=== PATIENT | female | born 1945 ===

== ENCOUNTER 2017-01-10 10:10 | Observation (INO) | payer MEDICARE, MEDICAID ==
[2017-01-10 10:18] VITALS: BMI 40.9
[2017-01-10] MEDS ORDERED: Sodium Chloride 0.9% 1,000 ML IV STA (10:50)
--- NOTE | 2017-01-10 10:51 | ED PDOC ---
HPI: General Adult Time Seen by Provider: 01/10/17 10:41 Chief Complaint (Nursing): Dizziness/Lightheaded Chief Complaint (Provider): Dizziness History Per: Patient History/Exam Limitations: no limitations Additional History Per: Patient Additional Complaint(s): Pt. with dizziness, chest pain off and on, dyspnea off and on for 1 week. Head pressure, mild, not worst in her life. No numbness, tingles, weakness, abd pain. No nausea, vomit. NIHSS Stroke Scale - Date/Time Evaluation Performed Date Performed: 01/10/17 Time Performed: 10:30 When Was NIHSS Performed: Baseline - How Severe is the Stroke Level of Consciousness: 0=Alert LOC to Questions: 0=Both comments correct LOC to commands: 0=Obeys both correctly Best Gaze: 0=Normal Visual: 0=No visual loss Facial: 0=Normal Motor Arm - Left: 0=No drift Motor Arm - Right: 0=No drift Motor Leg - Left: 0=No drift Motor Leg - Right: 0=No drift Limb Ataxia: 0=Absent Sensory: 0=Normal Best Language: 0=No aphasia Dysarthia: 0=Normal articulation Extinction & Inattention (Neglect): 0=Normal, no object Score: 0 rTPA Inclusion/Exclusion - Refusal of Treatment Patient Refused Treatment: No - Inclusion Criteria for Altepase Patient is 18 years or Older: Yes The Clinical Diagnosis of Ischemic Stroke That is Causing a Potentially Disabling Neurological Deficit: Yes Time of Onset is Well Established to be Less Than 270 Minute Before Treatment Would Begin: No Risk/Benefit Discussed With Patient/Family Member Present: No Past Medical History Reviewed: Nursing Documentation, Vital Signs Vital Signs: Last Vital Signs Temp 98.2 F 01/10/17 10:23 Pulse 62 01/10/17 10:23 Resp 20 01/10/17 10:23 BP 128/56 L 01/10/17 10:23 Pulse Ox 100 01/10/17 10:23 - Medical History PMH: Anxiety, Arthritis, Asthma, Cardia Arrhythmia, Depression, HTN, Hypercholesterolemia, Rheumatoid Arthritis Denies: Chronic Kidney Disease - Surgical History Surgical History: Denies: CABG - Family History Family History: States: Unknown Family Hx - Home Medications Home Medications: Ambulatory Orders Medication Instructions Recorded Rosuvastatin Calcium [Crestor] 5 mg PO HS 10/12/14 Alprazolam [Xanax] 2 mg PO TID PRN 12/21/14 Sertraline [Zoloft] 100 mg PO DAILY 12/21/14 Sitagliptin Phos/Metformin HCl 1 tab PO DAILY 12/21/14 [Janumet Xr 100-1,000 mg Tablet] Digoxin [Digitek] 125 mcg PO DAILY 11/29/15 Enalapril Maleate [Vasotec] 2.5 mg PO DAILY 11/29/15 Fexofenadine HCl [NayaNf] 180 mg PO DAILY PRN 11/29/15 Pioglitazone [Actos] 15 mg PO DAILY 11/29/15 oxyCODONE [oxyCODONE Immediate 30 mg PO Q6 PRN 11/29/15 Release Tab] Acetaminophen [Tylenol Extra 1,000 mg PO Q8H PRN 01/11/16 Strength] Albuterol 0.083% [Albuterol 0.083% 3 ml IH Q4H PRN 01/11/16 Inhal Anastasia (2.5 mg/3 ml) UD] Gabapentin [Neurontin] 800 mg PO Q8H 01/11/16 Montelukast [Singulair] 10 mg PO HS 01/11/16 PrednisoLONE 1% [Pred Forte 1% 1 drop LEFTEYE DAILY 01/11/16 Opht Susp] traZODone [Desyrel] 100 mg PO HS 01/11/16 Propranolol [Inderal] 20 mg PO BID 08/07/16 - Allergies Allergies/Adverse Reactions: Allergies Allergy/AdvReac Type Severity Reaction Status Date / Time penicillin G procaine Allergy RASH Verified 01/10/17 10:25 Penicillins Allergy RASH Verified 01/10/17 10:25 Sulfa (Sulfonamide Allergy RASH Verified 01/10/17 10:25 Antibiotics) Review of Systems ROS Statement: Except As Marked, All Systems Reviewed And Found Negative Cardiovascular: Positive for: Chest Pain Physical Exam - Reviewed Nursing Documentation Reviewed: Yes Vital Signs Reviewed: Yes - Physical Exam Appears: Positive for: Well, Non-toxic, No Acute Distress Head Exam: Positive for: ATRAUMATIC, NORMAL INSPECTION, NORMOCEPHALIC Skin: Positive for: Normal Color, Warm, DRY Eye Exam: Positive for: EOMI, Normal appearance, PERRL ENT: Positive for: Normal ENT Inspection Neck: Positive for: Normal, Painless ROM Cardiovascular/Chest: Positive for: Regular Rate, Rhythm. Negative for: Edema Respiratory: Positive for: CNT, Normal Breath Sounds Gastrointestinal/Abdominal: Positive for: Normal Exam, Bowel Sounds, Soft. Negative for: Tenderness Back: Positive for: Normal Inspection. Negative for: L CVA Tenderness, R CVA Tenderness Extremity: Positive for: Normal ROM. Negative for: Tenderness, Pedal Edema Neurologic/Psych: Positive for: Alert, cigar bander II-XII, Oriented - Laboratory Results Interpretation Of Abn Labs: no acute - ECG ECG: Positive for: Interpreted By Me, Viewed By Me ECG Rhythm: Positive for: Normal QRS, Normal ST Segment, Sinus Rhythm (pacs) O2 Sat by Pulse Oximetry: 100 Pulse Ox Interpretation: Normal - Radiology X-Ray: Read By Radiologist X-Ray Interpretation: No Acute Disease - CT Scan/US ct Other Rad Studies (CT/US): Read By Radiologist Other Rad Interpretation: no acute - Progress ED Course And Treament: 1245: Stable. Spoke with Dr. Peraza. Will admit tele obs. Pain free. Disposition - Clinical Impression Clinical Impression: Dizziness, Chest pain - Patient ED Disposition Is Patient to be Admitted: Yes Counseled Patient/Family Regarding: Studies Performed, Diagnosis - Disposition Disposition Time: 12:45 Condition: STABLE - Pt Status Changed To: Hospital Disposition Of: Observation - POA Present On Arrival: None Core Measure Indicators: Chest Pain
[2017-01-10 11:07] LABS: BASO % 0.6 % (0.0-2.0); EOS # 0.1 K/uL (0.0-0.7); EOS % 2.4 % (0.0-4.0); LYMPH % 20.6 % (20.0-40.0); MEAN CELL VOLUME 83.3 fl (81.0-99.0); MEAN CORPUSCULAR HGB CONC 32.5 g/dL (33.0-37.0); MEAN PLATELET VOLUME 8.7 fl (7.2-11.7); MONO # 0.5 K/uL (0.0-0.8); MONO % 10.2 % (0.0-10.0); NEUT # 3.2 K/uL (1.8-7.0); NEUT % 66.2 % (50.0-75.0); NRBC % 0.1 % (0.0-0.0); RED CELL DISTRIBUTION WIDTH 14.3 % (11.5-14.5); WHITE BLOOD COUNT 4.9 K/uL (4.8-10.8)
[2017-01-10 11:17] LABS: ALB/GLOB RATIO 1.1 (1.0-2.1); ALKALINE PHOSPHATASE 88 U/L (38-126); ALT/SGPT 23 U/L (9-52); AST/SGOT 18 U/L (14-36); BILIRUBIN,TOTAL 0.5 mg/dl (0.2-1.3); BLOOD UREA NITROGEN 12 mg/dl (7-17); CALCIUM 9.1 mg/dL (8.4-10.2); CARBON DIOXIDE 29 mmol/L (22-30); CHLORIDE 103 mmol/L (98-107); GFR AFRICAN-AMERICAN > 60; GLUCOSE,RANDOM 179 mg/dL (65-105); POTASSIUM 4.4 MMOL/L (3.6-5.0); SODIUM 140 mmol/l (132-148); TOTAL PROTEIN 6.7 G/DL (6.3-8.2)
--- NOTE | 2017-01-10 11:24 | CT ---
PROCEDURE: CT scan of the brain dated 01/10/2017. HISTORY: headache COMPARISON: CT scan brain dated in 10/12/2010 TECHNIQUE: Axial computed tomography images were obtained through the head/brain without intravenous contrast. Radiation dose: Total exam DLP = mGy-cm. This CT exam was performed using one or more of the following dose reduction techniques: Automated exposure control, adjustment of the mA and/or kV according to patient size, and/or use of iterative reconstruction technique. FINDINGS: HEMORRHAGE: No acute parenchymal, subarachnoid or extra-axial hemorrhage. BRAIN: There appears to be some minimal chronic periventricular white matter ischemic changes. No obvious parenchymal nor extra-axial masses or collections. . Mild vascular calcifications are present. Ventricular and sulcal size within range of normal for this patient's VENTRICLES: Unremarkable. No age obstructive type hydrocephalus. Hydrocephalus. CALVARIUM: Unremarkable. PARANASAL SINUSES: Mild mucosal thickening noted within the left maxillary antrum. Minor mucosal thickening within several ethmoid air cells. Small left-sided andre bullosa again noted. MASTOID AIR CELLS: Unremarkable as visualized. No inflammatory changes. OTHER FINDINGS: Status post bilateral cataract surgery. IMPRESSION: No acute intracranial hemorrhage. Suspect minimal chronic periventricular white matter ischemic changes. See above discussion for additional findings and details.
[2017-01-10 11:27] LABS: PARTIAL THROMBOPLASTIN TIME 27.2 SECONDS (23.3-32.5)
--- NOTE | 2017-01-10 11:29 | RAD ---
HISTORY: chest pain COMPARISON: 03/01/16 FINDINGS: LUNGS: No active pulmonary disease. PLEURA: No significant pleural effusion identified, no pneumothorax apparent. CARDIOVASCULAR: Normal. OSSEOUS STRUCTURES: Mild multilevel degenerative spondylosis of the thoracic spine VISUALIZED UPPER ABDOMEN: Normal. OTHER FINDINGS: None. IMPRESSION: No active disease.
--- NOTE | 2017-01-10 13:04 | CP.PCM.HP ---
History of Present Illness - History of Present Illness History of Present Illness: CC: chest pain/pressure HPI: 71F PMH SVT, CVA 15 years ago?, hypertension, diabetes mellitus, aortic aneurysm, L sided weakness upper and lower extremities due to back pain presents with a one day history of a single episode of mild to moderate chest pressure/pins and needles, while sitting at home, nonradiating. Patient also complains of associated shortness of breath today. Otherwise she has no other complaints at this time. Vitals are stable, no acute distress. EKG NSR, regular rate. No acute ischemia or infarct. Troponin negative times 1. Currently no active chest pain. ROS: per HPI all other systems negative PMH: SVT, CVA 15 years ago?, hypertension, diabetes mellitus, 2.6 cm infrarenal abd aortic aneurysm, L sided weakness upper and lower extremities due to back pain/ sciatica pain PSH: foot, lap band (inserted 5 years ago, removed this year), jaw surgery dislocation FH: CAD? uncertain SH: denies ETOH, tobacco, IVDU, quit 15 years ago. Meds: per reconciliation Allergies: PCN, Sulfa PMD: Dr. Almanza, Dr. Nevarez [facility] Registered Nurse EXAM GEN: WDWN, ALERT, ORIENTED HEENT: NCAT PERRL EOMI HEART: +S1S2 RRR LUNG: CTAB, NO WRR ABD SOFT NT ND NO MASS NO ORGANOMEGALY EXT WARM WELL PERFUSED BACK ALIGNED, NO RASH NEURO AAOX3, STRENGTH MILD WEAKER ON L SIDE FOR 30 YEARS SKIN WARM DRY PSYCH NORMAL MOOD NORMAL AFFECT 01/10/17 10:55 01/10/17 10:55 Most Recent Lab Values WBC 4.9 K/uL (4.8-10.8) 01/10/17 10:55 RBC 4.20 Mil/uL (3.80-5.20) 01/10/17 10:55 Hgb 11.4 g/dL (12.0-16.0) L 01/10/17 10:55 Hct 35.0 % (34.0-47.0) 01/10/17 10:55 MCV 83.3 fl (81.0-99.0) 01/10/17 10:55 MCH 27.0 pg (27.0-31.0) 01/10/17 10:55 MCHC 32.5 g/dL (33.0-37.0) L 01/10/17 10:55 RDW 14.3 % (11.5-14.5) 01/10/17 10:55 Plt Count 261 K/uL (130-400) 01/10/17 10:55 MPV 8.7 fl (7.2-11.7) 01/10/17 10:55 Neut % (Auto) 66.2 % (50.0-75.0) 01/10/17 10:55 Lymph % (Auto) 20.6 % (20.0-40.0) 01/10/17 10:55 [place] % (Auto) 10.2 % (0.0-10.0) H 01/10/17 10:55 Eos % (Auto) 2.4 % (0.0-4.0) 01/10/17 10:55 Baso % (Auto) 0.6 % (0.0-2.0) 01/10/17 10:55 Neut # 3.2 K/uL (1.8-7.0) 01/10/17 10:55 Lymph # 1.0 K/uL (1.0-4.3) 01/10/17 10:55 [place] # 0.5 K/uL (0.0-0.8) 01/10/17 10:55 Eos # 0.1 K/uL (0.0-0.7) 01/10/17 10:55 Baso # 0.0 K/uL (0.0-0.2) 01/10/17 10:55 PT 10.0 SECONDS (9.6-11.2) 01/10/17 10:55 INR 0.96 (0.92-1.08) 01/10/17 10:55 APTT 27.2 SECONDS (23.3-32.5) 01/10/17 10:55 Sodium 140 mmol/l (132-148) 01/10/17 10:55 Potassium 4.4 MMOL/L (3.6-5.0) 01/10/17 10:55 Chloride 103 mmol/L (98-107) 01/10/17 10:55 Carbon Dioxide 29 mmol/L (22-30) 01/10/17 10:55 Anion Gap 12 (10-20) 01/10/17 10:55 BUN 12 mg/dl (7-17) 01/10/17 10:55 Creatinine 0.7 mg/dL (0.7-1.2) 01/10/17 10:55 Est GFR ( Amer) > 60 01/10/17 10:55 Est GFR (Non-Af Amer) > 60 01/10/17 10:55 Random Glucose 179 mg/dL (65-105) H 01/10/17 10:55 Calcium 9.1 mg/dL (8.4-10.2) 01/10/17 10:55 Total Bilirubin 0.5 mg/dl (0.2-1.3) 01/10/17 10:55 AST 18 U/L (14-36) 01/10/17 10:55 ALT 23 U/L (9-52) 01/10/17 10:55 Alkaline Phosphatase 88 U/L (38-126) 01/10/17 10:55 Troponin I < 0.0120 ng/mL (0.00-0.120) 01/10/17 10:55 NT-Pro-B Natriuret Pep 222 pg/ml (0-900) 01/10/17 10:55 Total Protein 6.7 G/DL (6.3-8.2) 01/10/17 10:55 Albumin 3.6 g/dL (3.5-5.0) 01/10/17 10:55 Globulin 3.2 gm/dL (2.2-3.9) 01/10/17 10:55 Albumin/Globulin Ratio 1.1 (1.0-2.1) 01/10/17 10:55 Digoxin 0.6 ng/mL (0.8-2.0) L 01/10/17 10:55 EKG: NSR, RR, NO ACUTE ISCHEMIA OR INFARCT CXR: NO ACTIVE DISEASE CT HEAD: NO ACUTE INTRACRANIAL PATHOLOGY Active Medications 01/10/17 13:41 Albuterol 0.083% [Albuterol 0.083% Inhal Anastasia (2.5 mg/3 ml) UD] 2.5 mg IH Q4H PRN oxyCODONE [oxyCODONE Immediate Release Tab] 30 mg PO Q6 PRN 01/10/17 13:45 Gabapentin [Neurontin] 800 mg PO Q8H 01/10/17 16:30 Insulin Lispro [humALOG] See Protocol SC ACHS 01/10/17 21:00 Metoprolol Tartrate [Lopressor] 12.5 mg PO Q12 01/10/17 22:00 Atorvastatin [Lipitor] 20 mg PO HS Montelukast [Singulair] 10 mg PO HS traZODone [Desyrel] 100 mg PO HS 01/11/17 09:00 Aspirin [Aspirin Chewable] 81 mg PO DAILY Clopidogrel [Plavix] 75 mg PO DAILY Digoxin [Lanoxin] 0.125 mg PO DAILY Enalapril Maleate [Vasotec] 2.5 mg PO DAILY Enoxaparin [Lovenox] 40 mg SC DAILY Pioglitazone [Actos] 15 mg PO DAILY Sertraline [Zoloft] 100 mg PO DAILY Sitagliptin Phos/Metformin HCl [Janumet Xr 100-1,000 mg Tablet] 1 tab PO DAILY ASSESSMENT AND PLAN 71F PMH SVT, CVA 15 years ago?, hypertension, diabetes mellitus, aortic aneurysm , L sided weakness upper and lower extremities due to back pain presents with a one day history of mild to moderate chest pressure while at rest, lasting a few minutes, nonradiating. Patient also complains of associated shortness of breath. Otherwise she has no other complaints at this time. Vitals are stable, no acute distress. EKG NSR, regular rate. No acute ischemia or infarct. Troponin negative times 1. Currently no active chest pain. Chest Pain Hypertension Hyperlipidemia Trend cardiac enzymes. Obs on telemetry overnight. Spoke with patient's forcer maker, discussed patient case, and she may follow up with him as an outpatient once enzymes trend out. Metoprolol Tartrate [Lopressor] 12.5 mg PO Q12 Atorvastatin [Lipitor] 20 mg PO HS Aspirin [Aspirin Chewable] 81 mg PO DAILY Clopidogrel [Plavix] 75 mg PO DAILY Enalapril Maleate [Vasotec] 2.5 mg PO DAILY Enoxaparin [Lovenox] 40 mg SC DAILY Hx SVT stable Digoxin [Lanoxin] 0.125 mg PO DAILY Dig level slightly low Infrarenal Abd Aortic Aneurysm Pt on propranolol at home Currently on Lopressor for chest pain observation stable Diabetes Mellitus Gabapentin [Neurontin] 800 mg PO Q8H Insulin Lispro [humALOG] See Protocol SC ACHS Sitagliptin Phos/Metformin HCl [Janumet Xr 100-1,000 mg Tablet] 1 tab PO DAILY Pioglitazone [Actos] 15 mg PO DAILY Asthma stable Albuterol 0.083% [Albuterol 0.083% Inhal Anastasia (2.5 mg/3 ml) UD] 2.5 mg IH Q4H PRN Montelukast [Singulair] 10 mg PO HS Sciatica / Back pain stable Sees Dr. Woods pain management as outpatient oxyCODONE [oxyCODONE Immediate Release Tab] 30 mg PO Q6 PRN Anxiety/Depression stable Sertraline [Zoloft] 100 mg PO DAILY traZODone [Desyrel] 100 mg PO HS VTE PPX lovenox Present on Admission - Present on Admission Any Indicators Present on Admission: No Past Patient History - Infectious Disease Hx of Infectious Diseases: None - Tetanus Immunizations Tetanus Immunization: Unknown - Past Medical History & Family History Past Medical History?: Yes - Past Social History Smoking Status: Never Smoked - CARDIAC Hx Cardia Arrhythmia: Yes Hx Hypercholesterolemia: Yes Hx Hypertension: Yes - PULMONARY Hx Asthma: Yes - NEUROLOGICAL Hx Neurological Disorder: No - HEENT Hx HEENT Problems: Yes Hx Cataracts: Yes (BILATERAL) - RENAL Hx Chronic Kidney Disease: No - ENDOCRINE/METABOLIC Hx Endocrine Disorders: Yes Hx Diabetes Mellitus Type 2: Yes Other/Comment: NEUROPATHY - HEMATOLOGICAL/ONCOLOGICAL Hx Blood Disorders: No Hx Blood Transfusions: No - INTEGUMENTARY Hx Dermatological Problems: No - MUSCULOSKELETAL/RHEUMATOLOGICAL Hx Arthritis: Yes Hx Rheumatoid Arthritis: Yes - GASTROINTESTINAL Hx Gastrointestinal Disorders: No - GENITOURINARY/GYNECOLOGICAL Hx Genitourinary Disorders: No - PSYCHIATRIC Hx Anxiety: Yes Hx Depression: Yes - SURGICAL HISTORY Hx Coronary Artery Bypass Graft: No - ANESTHESIA Hx Anesthesia: Yes Hx Anesthesia Reactions: No Hx Malignant Hyperthermia: No Meds Allergies/Adverse Reactions: Allergies Allergy/AdvReac Type Severity Reaction Status Date / Time penicillin G procaine Allergy RASH Verified 01/10/17 10:25 Penicillins Allergy RASH Verified 01/10/17 10:25 Sulfa (Sulfonamide Allergy RASH Verified 01/10/17 10:25 Antibiotics) Results - Vital Signs Recent Vital Signs: Last Vital Signs Temp 98.2 F 01/10/17 10:23 Pulse 61 01/10/17 11:24 Resp 16 01/10/17 11:24 BP 120/61 01/10/17 11:24 Pulse Ox 100 05/05/17 12:46 - Labs Result Diagrams: 01/10/17 10:55 01/10/17 10:55 Labs: Laboratory Results - last 24 hr 01/10/17 01/10/17 01/10/17 10:55 10:55 10:55 WBC 4.9 RBC 4.20 Hgb 11.4 L Hct 35.0 MCV 83.3 MCH 27.0 MCHC 32.5 L RDW 14.3 Plt Count 261 MPV 8.7 Neut % (Auto) 66.2 Lymph % (Auto) 20.6 [place] % (Auto) 10.2 H Eos % (Auto) 2.4 Baso % (Auto) 0.6 Neut # 3.2 Lymph # 1.0 [place] # 0.5 Eos # 0.1 Baso # 0.0 PT 10.0 INR 0.96 APTT 27.2 Sodium 140 Potassium 4.4 Chloride 103 Carbon Dioxide 29 Anion Gap 12 BUN 12 Creatinine 0.7 Est GFR ( Amer) > 60 Est GFR (Non-Af Amer) > 60 Random Glucose 179 H Calcium 9.1 Total Bilirubin 0.5 AST 18 ALT 23 Alkaline Phosphatase 88 Troponin I < 0.0120 NT-Pro-B Natriuret Pep 222 Total Protein 6.7 Albumin 3.6 Globulin 3.2 Albumin/Globulin Ratio 1.1 Digoxin 01/10/17 10:55 WBC RBC Hgb Hct MCV MCH MCHC RDW Plt Count MPV Neut % (Auto) Lymph % (Auto) [place] % (Auto) Eos % (Auto) Baso % (Auto) Neut # Lymph # [place] # Eos # Baso # PT INR APTT Sodium Potassium Chloride Carbon Dioxide Anion Gap BUN Creatinine Est GFR ( Amer) Est GFR (Non-Af Amer) Random Glucose Calcium Total Bilirubin AST ALT Alkaline Phosphatase Troponin I NT-Pro-B Natriuret Pep Total Protein Albumin Globulin Albumin/Globulin Ratio Digoxin 0.6 L
[2017-01-10] MEDS ORDERED: oxyCODONE 10 mg Immediate Release Tab PO PRN (13:41)
[2017-01-10] MEDS ORDERED: Albuterol 0.083% Inhal Sol (2.5 mg/3 mL) UD IH PRN (13:41)
[2017-01-10] MEDS ORDERED: Pneumococcal 23-Valent Vaccine IM ONE (15:50)
[2017-01-10] MEDS: Insulin Lispro (humaLOG) 100 Units/ml Inj SC SCH ×2 (18:08→21:35)
[2017-01-10] MEDS: oxyCODONE 5 mg Immediate Release Tab PO PRN (21:32)
[2017-01-11] MEDS: oxyCODONE 5 mg Immediate Release Tab PO PRN ×2 (05:32→10:39)
[2017-01-11 05:43] VITALS: RESP 18; TEMP 97.5
[2017-01-11] MEDS: Insulin Lispro (humaLOG) 100 Units/ml Inj SC SCH (06:37)
[2017-01-11 08:01] LABS: BASO % 0.5 % (0.0-2.0); EOS # 0.1 K/uL (0.0-0.7); EOS % 2.9 % (0.0-4.0); HEMATOCRIT 32.8 % (34.0-47.0); LYMPH # 1.5 K/uL (1.0-4.3); LYMPH % 28.6 % (20.0-40.0); MEAN CELL VOLUME 83.7 fl (81.0-99.0); MEAN CORPUSCULAR HEMOGLOBIN 27.8 pg (27.0-31.0); MEAN CORPUSCULAR HGB CONC 33.2 g/dL (33.0-37.0); MEAN PLATELET VOLUME 9.5 fl (7.2-11.7); MONO # 0.5 K/uL (0.0-0.8); MONO % 10.2 % (0.0-10.0); NEUT # 2.9 K/uL (1.8-7.0); NEUT % 57.8 % (50.0-75.0); NRBC % 0.1 % (0.0-0.0); RED CELL DISTRIBUTION WIDTH 14.1 % (11.5-14.5); WHITE BLOOD COUNT 5.1 K/uL (4.8-10.8)
[2017-01-11 08:05] VITALS: BP 104/67; PULSE 56; O2SAT 92
[2017-01-11 08:21] LABS: BLOOD UREA NITROGEN 13 mg/dl (7-17); CALCIUM 8.8 mg/dL (8.4-10.2); CARBON DIOXIDE 29 mmol/L (22-30); CHLORIDE 103 mmol/L (98-107); CHOLESTEROL 215 mg/dL (0-199); GFR AFRICAN-AMERICAN > 60; GLUCOSE,RANDOM 157 mg/dL (65-105); POTASSIUM 4.2 MMOL/L (3.6-5.0); SODIUM 139 mmol/l (132-148)
--- NOTE | 2017-01-11 08:58 | CP.PCM.DIS ---
Provider - Provider Date of Admission: 01/10/17 12:46 Attending physician: Margaret Peraza DO Time Spent in preparation of Discharge (in minutes): 30 Hospital Course - Lab Results Lab Results: Most Recent Lab Values WBC 4.9 K/uL (4.8-10.8) 01/10/17 10:55 RBC 4.20 Mil/uL (3.80-5.20) 01/10/17 10:55 Hgb 11.4 g/dL (12.0-16.0) L 01/10/17 10:55 Hct 35.0 % (34.0-47.0) 01/10/17 10:55 MCV 83.3 fl (81.0-99.0) 01/10/17 10:55 MCH 27.0 pg (27.0-31.0) 01/10/17 10:55 MCHC 32.5 g/dL (33.0-37.0) L 01/10/17 10:55 RDW 14.3 % (11.5-14.5) 01/10/17 10:55 Plt Count 261 K/uL (130-400) 01/10/17 10:55 MPV 8.7 fl (7.2-11.7) 01/10/17 10:55 Neut % (Auto) 66.2 % (50.0-75.0) 01/10/17 10:55 Lymph % (Auto) 20.6 % (20.0-40.0) 01/10/17 10:55 [place] % (Auto) 10.2 % (0.0-10.0) H 01/10/17 10:55 Eos % (Auto) 2.4 % (0.0-4.0) 01/10/17 10:55 Baso % (Auto) 0.6 % (0.0-2.0) 01/10/17 10:55 Neut # 3.2 K/uL (1.8-7.0) 01/10/17 10:55 Lymph # 1.0 K/uL (1.0-4.3) 01/10/17 10:55 [place] # 0.5 K/uL (0.0-0.8) 01/10/17 10:55 Eos # 0.1 K/uL (0.0-0.7) 01/10/17 10:55 Baso # 0.0 K/uL (0.0-0.2) 01/10/17 10:55 PT 10.0 SECONDS (9.6-11.2) 01/10/17 10:55 INR 0.96 (0.92-1.08) 01/10/17 10:55 APTT 27.2 SECONDS (23.3-32.5) 01/10/17 10:55 Sodium 139 mmol/l (132-148) 01/11/17 06:00 Potassium 4.2 MMOL/L (3.6-5.0) 01/11/17 06:00 Chloride 103 mmol/L (98-107) 01/11/17 06:00 Carbon Dioxide 29 mmol/L (22-30) 01/11/17 06:00 Anion Gap 12 (10-20) 01/11/17 06:00 BUN 13 mg/dl (7-17) 01/11/17 06:00 Creatinine 0.8 mg/dL (0.7-1.2) 01/11/17 06:00 Est GFR ( Amer) > 60 01/11/17 06:00 Est GFR (Non-Af Amer) > 60 01/11/17 06:00 POC Glucose (mg/dL) 139 mg/dL (65-110) H 01/11/17 05:33 Random Glucose 157 mg/dL (65-105) H 01/11/17 06:00 Calcium 8.8 mg/dL (8.4-10.2) 01/11/17 06:00 Total Bilirubin 0.5 mg/dl (0.2-1.3) 01/10/17 10:55 AST 18 U/L (14-36) 01/10/17 10:55 ALT 23 U/L (9-52) 01/10/17 10:55 Alkaline Phosphatase 88 U/L (38-126) 01/10/17 10:55 Troponin I < 0.0120 ng/mL (0.00-0.120) 01/11/17 06:00 NT-Pro-B Natriuret Pep 222 pg/ml (0-900) 01/10/17 10:55 Total Protein 6.7 G/DL (6.3-8.2) 01/10/17 10:55 Albumin 3.6 g/dL (3.5-5.0) 01/10/17 10:55 Globulin 3.2 gm/dL (2.2-3.9) 01/10/17 10:55 Albumin/Globulin Ratio 1.1 (1.0-2.1) 01/10/17 10:55 Triglycerides 189 mg/DL (0-149) H 01/11/17 06:00 Cholesterol 215 mg/dL (0-199) H 01/11/17 06:00 LDL Cholesterol Direct 138 mg/dL (0-129) H 01/11/17 06:00 HDL Cholesterol 40 MG/DL (30-70) 01/11/17 06:00 Digoxin 0.6 ng/mL (0.8-2.0) L 01/10/17 10:55 - Hospital Course Hospital Course: 71F PMH SVT, CVA 15 years ago?, hypertension, diabetes mellitus, Infrarenal Abd Aortic Aneurysm, L sided weakness upper and lower extremities due to back pain presents with a one day history of a single episode of mild to moderate chest pressure/pins and needles, while sitting at home, nonradiating. Patient also complains of associated shortness of breath today. Otherwise she has no other complaints at this time. Vitals are stable, no acute distress. EKG NSR, regular rate. No acute ischemia or infarct. Troponin negative times 1. Currently no active chest pain. ROS: per HPI all other systems negative PMH: SVT, CVA 15 years ago?, hypertension, diabetes mellitus, 2.6 cm infrarenal abd aortic aneurysm, L sided weakness upper and lower extremities due to back pain/ sciatica pain PSH: foot, lap band (inserted 5 years ago, removed this year), jaw surgery dislocation FH: CAD? uncertain SH: denies ETOH, tobacco, IVDU, quit 15 years ago. Meds: per reconciliation Allergies: PCN, Sulfa PMD: Dr. Almanza, Dr. Nevarez Plastic Cutter EKG: NSR, RR, NO ACUTE ISCHEMIA OR INFARCT CXR: NO ACTIVE DISEASE CT HEAD: NO ACUTE INTRACRANIAL PATHOLOGY COURSE IN HOSPITAL Chest Pain Hypertension Hyperlipidemia Trend cardiac enzymes - NEGATIVE TIMES THREE. Obs on telemetry overnight. No acute tele events. Spoke with patient's roll on man, discussed patient case, and she may follow up with him as an outpatient once enzymes trend out. Metoprolol Tartrate [Lopressor] 12.5 mg PO Q12 Atorvastatin [Lipitor] 20 mg PO HS Aspirin [Aspirin Chewable] 81 mg PO DAILY Clopidogrel [Plavix] 75 mg PO DAILY Enalapril Maleate [Vasotec] 2.5 mg PO DAILY Enoxaparin [Lovenox] 40 mg SC DAILY Hx SVT stable Digoxin [Lanoxin] 0.125 mg PO DAILY Dig level slightly low Infrarenal Abd Aortic Aneurysm Pt on propranolol at home Currently on Lopressor for chest pain observation stable Diabetes Mellitus Gabapentin [Neurontin] 800 mg PO Q8H Insulin Lispro [humALOG] See Protocol SC ACHS Sitagliptin Phos/Metformin HCl [Janumet Xr 100-1,000 mg Tablet] 1 tab PO DAILY Pioglitazone [Actos] 15 mg PO DAILY Asthma stable Albuterol 0.083% [Albuterol 0.083% Inhal Anastasia (2.5 mg/3 ml) UD] 2.5 mg IH Q4H PRN Montelukast [Singulair] 10 mg PO HS Sciatica / Back pain stable Sees Dr. Woods pain management as outpatient oxyCODONE [oxyCODONE Immediate Release Tab] 30 mg PO Q6 PRN Anxiety/Depression stable Sertraline [Zoloft] 100 mg PO DAILY traZODone [Desyrel] 100 mg PO HS VTE PPX lovenox Discharge Exam - Head Exam Head Exam: ATRAUMATIC, NORMAL INSPECTION, NORMOCEPHALIC - Eye Exam Eye Exam: EOMI, Normal appearance, PERRL Pupil Exam: NORMAL ACCOMODATION - ENT Exam ENT Exam: Mucous Membranes Moist, Normal Oropharynx - Neck Exam Neck exam: Full Rom, Normal Inspection - Respiratory Exam Respiratory Exam: Clear to PA & Lateral, NORMAL BREATHING PATTERN. absent: Decreased Breath Sounds, Rales, Rhonchi - Cardiovascular Exam Cardiovascular Exam: RRR, +S1, +S2. absent: Gallop, Rubs - GI/Abdominal Exam GI & Abdominal Exam: Normal Bowel Sounds, Soft. absent: Mass, Organomegaly, Tenderness - Back Exam Back exam: absent: CVA tenderness (L), CVA tenderness (R) - Neurological Exam Neurological exam: Alert, Oriented x3 - Psychiatric Exam Psychiatric exam: Normal Affect, Normal Mood - Skin Skin Exam: Dry, Warm Discharge Plan - Discharge Medications Prescriptions: Albuterol 0.083% [Albuterol 0.083% Inhal Anastasia (2.5 mg/3 ml) UD] 3 ml IH Q4H PRN # 1 PRN Reason: Shortness Of Breath Aspirin [Aspirin Chewable] 81 mg PO DAILY #30 Digoxin [Digitek] 125 mcg PO DAILY #30 Enalapril Maleate [Vasotec] 2.5 mg PO DAILY #30 Gabapentin [Neurontin] 800 mg PO Q8H #90 Montelukast [Singulair] 10 mg PO HS #30 oxyCODONE [oxyCODONE Immediate Release Tab] 30 mg PO Q6 PRN #28 PRN Reason: Pain, Severe (8-10) Pioglitazone [Actos] 15 mg PO DAILY #30 Propranolol [Inderal] 20 mg PO BID #60 Rosuvastatin Calcium [Crestor] 5 mg PO DAILY #30 tab Sertraline [Zoloft] 100 mg PO DAILY #30 Sitagliptin Phos/Metformin HCl [Janumet Xr 100-1,000 mg Tablet] 1 tab PO DAILY # 30 traZODone [Desyrel] 100 mg PO HS #30 - Follow Up Plan Condition: STABLE Disposition: HOME/ ROUTINE Additional Instructions: FOLLOW UP WITH PRIMARY CARE DOCTOR, DR. ALMANZA IN ONE WEEK. FOLLOW UP WITH DR. NEVAREZ [facility] IN ONE WEEK. RESUME LOW FAT LOW CHOLESTEROL DIET RESUME ACTIVITY TOLERATED, ENCOURAGE EXERCISE. MEDICATIONS PRESCRIBED. RETURN TO ER IF CONDITION WORSENS.
[2017-01-11] MEDS ORDERED: Patient's Own Med (Sitagliptin Phos/Metformin Hcl [Janumet Xr 100-1,000 Mg Tablet] 1 TAB) PO SCH (09:00)
[2017-01-11] MEDS ORDERED: Enoxaparin 40 mg Syringe SC SCH (09:00)
[2017-01-11] MEDS ORDERED: Digoxin 125 mcg (0.125 mg) Tab PO SCH (09:00)
--- NOTE | 2017-01-11 09:19 | CARD ---
APPROVED REPORT EKG Measurement Heart [id number] <Conclusion> Sinus rhythm with premature atrial complexes Otherwise normal ECG
[2017-01-11 09:30] VITALS: PULSE 56
== END 2017-01-11 11:03 | disposition home or self-care (01) ==
LOC: H.ER 10:10 → H.ERHOLD 12:46 → H.TEL 14:19
PROVIDERS: ADMIT Student in an Organized Health Care Education/Training Program; ATTEND Student in an Organized Health Care Education/Training Program
DX: R07.9 Chest pain, unspecified (principal); E11.9 Type 2 diabetes mellitus without complications; E78.00 Pure hypercholesterolemia, unspecified; E78.5 Hyperlipidemia, unspecified; F32.9 Major depressive disorder, single episode, unspecified; F41.9 Anxiety disorder, unspecified; I10 Essential (primary) hypertension; I71.4 Abdominal aortic aneurysm, without rupture; J45.909 Unspecified asthma, uncomplicated; M06.9 Rheumatoid arthritis, unspecified; M54.30 Sciatica, unspecified side; Z86.73 Personal history of transient ischemic attack (TIA), and cerebral infarction without residual deficits; M54.9 Dorsalgia, unspecified; R53.1 Weakness; Z23 Encounter for immunization; Z88.0 Allergy status to penicillin; Z88.2 Allergy status to sulfonamides
CPT/HCPCS: 36415; 70450; 71010; 80048; 80053; 80061; 80162; 82948; 83880; 84484; 85025; 85610; 85730; 90732; 93005; 99285; G0009; G0378; J1650; J7040

== ENCOUNTER 2017-04-23 10:09 | Day surgery (SDC) | payer MEDICARE, MEDICAID ==
[2017-04-23 10:38] VITALS: BMI 41.8
[2017-04-23] MEDS ORDERED: Lactated Ringer's 1,000 ML IV ONE (11:18)
[2017-04-23] MEDS ORDERED: Iohexol 300 10 ML ONE (11:36)
[2017-04-23] MEDS ORDERED: methylPREDNISolone Depo 80 mg/ml Inj ONE (11:36)
[2017-04-23] MEDS ORDERED: Bupivacaine HCl 0.25% PF (10 ml) Inj ONE (11:37)
[2017-04-23] MEDS ORDERED: Lidocaine 1% Inj (20ml) ONE (11:37)
[2017-04-23] MEDS ORDERED: Propofol 10 mg/ml Inj (20 ML) ONE (11:56)
[2017-04-23] MEDS ORDERED: Midazolam 2 MG/2 ML VIAL ONE (11:56)
[2017-04-23] MEDS ORDERED: Bupivacaine HCl 0.25% PF (10 ml) Inj IJ ONE (12:00)
[2017-04-23] MEDS ORDERED: Lidocaine 1% Inj (20ml) IJ ONE (12:00)
[2017-04-23] MEDS ORDERED: Iohexol 300 10 ML IJ ONE (12:02)
[2017-04-23] MEDS ORDERED: methylPREDNISolone Depo 80 mg/ml Inj IM ONE (12:02)
[2017-04-23 12:58] VITALS: BP 116/57; PULSE 58; RESP 18; O2SAT 98
[2017-04-23 13:20] VITALS: TEMP 98.4
--- NOTE | 2017-04-23 15:16 | OP ---
PROCEDURE DATE: 04/23/2017 PREOPERATIVE DIAGNOSIS: Lumbar rachiopathy. POSTOPERATIVE DIAGNOSIS: Lumbar rachiopathy. PROCEDURE: Caudal epidural steroid injection. ANESTHESIOLOGIST: Dr. Valero. SURGEON: Dr. Woods. ANESTHESIA: Monitored anesthesia care. COMPLICATIONS: None. SPECIMEN: None. DESCRIPTION OF PROCEDURE: As follows, after discussion of the procedure with the patient including his risks, benefits, alternative, outcome data, possibility of no effects, increased pain the patient consented to the procedure. She denies any recent infection, bleeding tendencies or being on anticoagulants. Decision was then made to proceed to the OR. The patient was placed on a fluoroscopy table in a supine position with two pillows underneath her abdomen. The back was prepped and draped in a usual sterile fashion under sterile technique and was adhered during the entire procedure. The sacral hiatus was first palpated. The skin approximately 5 cm distal to this area was then infiltrated with 1% lidocaine using 25-gauge needle box maker then under a lot of fluoroscopic guidance a 20-gauge 3.5 inch 2 needle was then inserted towards the sacral hiatal opening. After the needle was safely reached the epidural space this was confirmed by injecting approximately 1 mL of Isovue contrast which was spread up to the L5 intravertebral region. Approximately 10 mL of 0.5% Marcaine and Depo-Medrol mixture was injected. At the end of procedure, the patient's back was cleaned and dried and bandages were applied. The patient was then transferred to recovery area in good condition without any signs of SCALE SHOOTER toxicity or any neurological defects. She will have a followup in our office in approximately 2 to 4 weeks. En-Elie Woods MD
--- NOTE | 2017-04-23 17:22 | RAD ---
PROCEDURE: Sacral epidural HISTORY: PAIN MANAGEMENT COMPARISON: None TECHNIQUE: Standard protocol for this study/examination. FINDINGS: Total fluoroscopic time (continuous mode) utilized during the procedure: 11.5 seconds. Submitted images from the current procedure: 1.0 IMPRESSION: Less than 1 hr fluoroscopic time utilized during performance of the procedure.
== END 2017-04-23 13:21 | disposition home or self-care (01) ==
LOC: H.OPSURG 10:09
PROVIDERS: ATTEND Anesthesiology
DX: M54.16 Radiculopathy, lumbar region (principal); J45.909 Unspecified asthma, uncomplicated; E11.9 Type 2 diabetes mellitus without complications; E78.5 Hyperlipidemia, unspecified; I10 Essential (primary) hypertension; I47.1 Supraventricular tachycardia; I69.354 Hemiplegia and hemiparesis following cerebral infarction affecting left non-dominant side
CPT/HCPCS: 62322; 82948; J1040; J2001; J2250; J2704; J3010; J7120; Q9967

== ENCOUNTER → 2017-06-18 | Day surgery (SDC) | payer MEDICARE, MEDICAID ==
[~2017-06-18] MED LIST: Bupivacaine HCl 0.25% PF (10 ml) Inj IJ ONE; Bupivacaine HCl 0.25% PF (10 ml) Inj ONE; Iohexol 300 10 ML IJ ONE; Iohexol 300 10 ML ONE; Lactated Ringer's 1,000 ML IV ONE; Lidocaine 1% Inj (20ml) IJ ONE; Lidocaine 1% Inj (20ml) ONE; MethylPREDNISolone Depo 40 mg/ml Inj ONE; Propofol 10 mg/ml Inj (20 ML) ONE; methylPREDNISolone Depo 80 mg/ml Inj IM ONE
[2017-06-18 10:38] VITALS: BMI 40.9
[2017-06-18] MEDS: HYDROmorphone 0.5 mg/0.5 ml ISec IVP PRN ×2 (12:20→12:35)
[2017-06-18 13:26] VITALS: BP 151/84; PULSE 54; RESP 18; TEMP 97.5
--- NOTE | 2017-06-18 22:09 | OP ---
PROCEDURE DATE: 06/18/2017 PREOPERATIVE DIAGNOSIS: Lumbar radiculopathy. POSTOPERATIVE DIAGNOSIS: Lumbar radiculopathy. PROCEDURE: Left L4-L5, L5-S1 transforaminal epidural steroid injection. SURGEON: Dipti Woods MD TYPE OF ANESTHESIA: Monitored anesthesia care. ANESTHESIA ADMINISTERED BY: Dr. Rodriguez. COMPLICATIONS: None. SPECIMEN: None. DESCRIPTION OF PROCEDURE: After we had a discussion of the procedure with the patient including its risks, benefits, alternative, outcome data, and possibility of no effect or increased pain, the patient consented to the procedure. She denies any recent infections, bleeding tendencies or being on anticoagulants, decision was then made to proceed to the OR. The patient was placed on a fluoroscopy table in a prone position with 2 pillows underneath her abdomen. The back was prepped and draped in the usual sterile fashion and sterile technique was adhered to during the entire procedure. The L4 and L5 vertebral levels were first identified in the anterior and posterior view. Angulation towards the left at approximately 25 degrees was used to maximize the visualization of the left L4 and L5 pedicles. The skin overlying the 6 o'clock position of both pedicles was then infiltrated with 1% lidocaine using a 25-gauge needle. Subsequently, a 22-gauge 5-inch spinal needle was incrementally advanced under fluoroscopic guidance until tip of the needle made bony contact with the pedicle and the needle was slowly walked inferiorly into the intravertebral foramen. After satisfactory positioning of both needles, approximately 0.5 mL of Isovue contrast was injected showing appropriate epidural spread when no signs of CSF or intravenous involvement. At this point, approximately 3 mL of 0.25% Marcaine and Depo-Medrol mixture was injected. The needle was then removed. The patient's back was cleaned and dried and bandages were applied. The patient was then transferred to recovery area in good condition without any signs of BASKETBALL SCOUT toxicity or any neurological deficits. She will have a follow up in our office in approximately 2-4 weeks. Dipti Woods MD
[2017-06-19 06:12] VITALS: O2SAT 97
== END | disposition home or self-care (01) ==
LOC: H.OPSURG 10:11
PROVIDERS: ATTEND Anesthesiology
DX: M54.16 Radiculopathy, lumbar region (principal); J45.909 Unspecified asthma, uncomplicated; E11.9 Type 2 diabetes mellitus without complications; I10 Essential (primary) hypertension
CPT/HCPCS: 64483; 64484; 82948; J1030; J1040; J1170; J2001; J2704; J7120; Q9967

== ENCOUNTER 2017-11-19 13:54 | Emergency (ER) | payer MEDICARE, MEDICAID ==
[2017-11-19 13:55] VITALS: PULSE 56; BMI 40.9
[2017-11-19 14:07] VITALS: RESP 16; TEMP 98
[2017-11-19] MEDS ORDERED: Morphine 4 MG/ML VIAL ONE (15:00)
--- NOTE | 2017-11-19 15:14 | ED PDOC ---
HPI: Back Time Seen by Provider: 11/19/17 14:15 Chief Complaint (Nursing): Back Pain Chief Complaint (Provider): Back pain and rectal pain History Per: Patient History/Exam Limitations: no limitations Onset/Duration Of Symptoms: Days (x3 weeks), Worse Since (onset) Current Symptoms Are (Timing): Still Present Quality Of Discomfort: Burning (rectal pain) Severity: Moderate Previous Symptoms: Chronic Pain (back pain) Associated Symptoms: Other (generalized weakness. ) Additional Complaint(s): Nica Jimenez is a 72 year old female, with a past medical history of HTN, diabetes, hypercholesterolemia, obesity, CVA and chronic back pain, who presents to the emergency department complaining of low back pain associated with generalized weakness onset x3 weeks ago and rectal pain for x3 days. Patient states the back pain radiates to the tailbone and has been worsening since onset. She reports a chronic back pain and feels like it might just be an extension of that, but x3 days ago she began having severe burning pain in rectal area and is concerned she might have hemorrhoids. She had a hemorrhoid surgery x20 yrs ago and it has not bothered her since then. Patient sees Dr. Woods for pain management of her chronic back pain and is scheduled for tailbone injection in the of this month. She denies any constipation, bleeding, difficult bowel movements, numbness or weakness in legs, bowel or urine incontinence or retention. PMD: Koby Almanza Past Medical History Reviewed: Historical Data, Nursing Documentation, Vital Signs Vital Signs: Last Vital Signs Temp 98.0 F 11/19/17 14:05 Pulse 78 11/19/17 14:05 Resp 16 11/19/17 14:05 BP 143/85 11/19/17 14:05 Pulse Ox 98 11/19/17 14:05 - Medical History PMH: Anxiety, Arthritis, Asthma, Cardia Arrhythmia, CVA, Depression, Diabetes, HTN, Hypercholesterolemia, Rheumatoid Arthritis Denies: Chronic Kidney Disease - Surgical History Surgical History: Denies: CABG Other surgeries: Hemorrhoids, knee and foot surgery, lap band surgery. - Family History Family History: States: Stroke, Diabetes, Hypertension, Other Other Family History: hypercholesterolemia. - Social History Current smoker - smoking cessation education provided: No Alcohol: None Drugs: Denies - Home Medications Home Medications: Ambulatory Orders Medication Instructions Recorded Rosuvastatin Calcium [Crestor] 5 mg PO HS 10/12/14 Alprazolam [Xanax] 2 mg PO TID PRN 12/21/14 Fexofenadine HCl [Naya NF] 180 mg PO DAILY PRN 11/29/15 PrednisoLONE 1% [Pred Forte 1% 1 drop LEFTEYE DAILY 01/11/16 Opht Susp] Albuterol 0.083% [Albuterol 0.083% 3 ml IH Q4H PRN #1 01/11/17 Inhal Anastasia (2.5 mg/3 ml) UD] Digoxin [Digitek] 125 mcg PO DAILY #30 01/11/17 Enalapril Maleate [Vasotec] 2.5 mg PO DAILY #30 01/11/17 Gabapentin [Neurontin] 800 mg PO Q8H #90 01/11/17 Montelukast [Singulair] 10 mg PO HS #30 01/11/17 Pioglitazone [Actos] 15 mg PO DAILY #30 01/11/17 Propranolol [Inderal] 20 mg PO BID #60 01/11/17 Rosuvastatin Calcium [Crestor] 5 mg PO DAILY #30 tab 01/11/17 Sertraline [Zoloft] 100 mg PO DAILY #30 01/11/17 Sitagliptin Phos/Metformin HCl 1 tab PO DAILY #30 01/11/17 [Janumet Xr 100-1,000 mg Tablet] oxyCODONE [oxyCODONE Immediate 30 mg PO Q6 PRN #28 01/11/17 Release Tab] traZODone [Desyrel] 100 mg PO HS #30 01/11/17 Oxycodone HCl [Roxicodone] 30 mg PO .Q4-6 PRN 04/23/17 Ciprofloxacin [Cipro] 1 tab PO BID #20 tab 11/19/17 metroNIDAZOLE [Flagyl] 500 mg PO TID #30 tab 11/19/17 traMADol [Ultram] 50 mg PO TID PRN #15 tab 11/19/17 - Allergies Allergies/Adverse Reactions: Allergies Allergy/AdvReac Type Severity Reaction Status Date / Time penicillin G procaine Allergy RASH Verified 11/19/17 14:05 Penicillins Allergy RASH Verified 11/19/17 14:05 Sulfa (Sulfonamide Allergy RASH Verified 11/19/17 14:05 Antibiotics) Review of Systems ROS Statement: Except As Marked, All Systems Reviewed And Found Negative Constitutional: Positive for: Other (generalized weakness.) Gastrointestinal: Positive for: Rectal Pain (burning). Negative for: Constipation, Hematochezia Genitourinary Female: Negative for: Incontinence (bladder or bowel) Musculoskeletal: Positive for: Back Pain (low back pain that radiates to tailbone) Neurological: Negative for: Weakness, Numbness Physical Exam - Reviewed Nursing Documentation Reviewed: Yes Vital Signs Reviewed: Yes - Physical Exam Appears: Positive for: Non-toxic, Uncomfortable (moderate painful distress. Only able to lie on her side. ) Head Exam: Positive for: ATRAUMATIC, NORMAL INSPECTION, NORMOCEPHALIC Skin: Positive for: Normal Color, Warm, Dry Eye Exam: Positive for: Normal appearance, EOMI, PERRL Neck: Positive for: Painless ROM, Supple Cardiovascular/Chest: Positive for: Regular Rate, Rhythm. Negative for: Murmur Respiratory: Positive for: Normal Breath Sounds. Negative for: Respiratory Distress Gastrointestinal/Abdominal: Positive for: Normal Exam, Soft, Other (obese and protuberant). Negative for: Tenderness, Guarding, Rebound Back: Positive for: Vertebral Tenderness (tenderness to palpation along the midline lumbar spine down to the coccyx with exquisite tenderness to palpation at the coccyx.) Rectal: Positive for: Rectal Tone Is: (normal), Hemorrhoids (small intact hemorrhoids, no visible fissure, no thrombosed hemorrhoid.) Extremity: Positive for: Normal ROM. Negative for: Tenderness, Deformity, Swelling Neurologic/Psych: Positive for: Alert, Oriented - Laboratory Results Result Diagrams: 11/19/17 15:05 11/19/17 15:05 - ECG O2 Sat by Pulse Oximetry: 98 (RA) Pulse Ox Interpretation: Normal Medical Decision Making Medical Decision Making: Initial Impression: Low back pain and rectal pain. Differential includes but not limited to acute on chronic back pain, herniated disc, rectal abscess, thrombosed internal hemorrhoid, anal fissure, proctalgia Initial Plan: --Abd & Pelvis IV Contrast [CT] --CMP --Urine dipstick --CBC w/ differential --Toradol 30 mg IV --Morphine 5 mg IVP --Reevaluation 17:39 Abdomen/Pelvis CT FINDINGS: LOWER THORAX: No visible consolidation, pleural effusion, or pneumothorax. LIVER: Unremarkable. GALLBLADDER AND BILE DUCTS: Unremarkable. PANCREAS: Unremarkable. SPLEEN: 11 mm probable splenule. Otherwise unremarkable unenhanced appearance. ADRENALS: Indeterminate 14 mm right adrenal gland and 15 mm left adrenal gland nodules. KIDNEYS AND URETERS: The kidneys enhance symmetrically. No hydronephrosis or obstructing calculus identified. VASCULATURE: Atherosclerotic calcifications and noncalcified plaque. 2.7 cm infrarenal abdominal aortic aneurysm. BOWEL: Stomach is nondistended. Lack of oral contrast limits evaluation for bowel pathology. Bowel loops appear within normal limits of caliber without evidence of obstruction. Questionable rectal wall thickening of uncertain significance ; correlate clinically for possibility of proctitis. No discrete fluid collection or abscess evident. APPENDIX: The appendix appears within normal limits of caliber. No secondary signs of acute appendicitis. PERITONEUM: No significant free fluid. No definite free air. LYMPH NODES: No bulky adenopathy identified. BLADDER: Under distended urinary bladder limits evaluation. REPRODUCTIVE: The uterus is present and contains mm calcification likely related to fibroids. BONES: Degenerative changes. OTHER FINDINGS: Tiny fat containing umbilical hernia. IMPRESSION: Questionable rectal wall thickening of uncertain significance ; correlate clinically for possibility of proctitis. No discrete fluid collection or abscess evident. Correlate clinically. Indeterminate 14 mm right adrenal gland and 15 mm left adrenal gland nodules re- identified. Dedicated cross-sectional imaging may be considered for further characterization, if indicated. Atherosclerotic calcifications and noncalcified plaque. 2.7 cm infrarenal abdominal aortic aneurysm. Additional findings as above. 17:50 Upon provider evaluation patient is medically stable, and requires no further treatment in the ED at this time. Patient will be discharged home. Counseling was provided and all questions were answered regarding diagnosis and need for follow up. There is agreement to discharge plan. Return if symptoms persist or worsen. Scribe Attestation: Documented by Julio Amador, acting as a scribe for Whit J Murray, MD Provider Scribe Attestation: All medical record entries made by the Scribe were at my direction and personally dictated by me. I have reviewed the chart and agree that the record accurately reflects my personal performance of the history, physical exam, medical decision making, and the department course for this patient. I have also personally directed, reviewed, and agree with the discharge instructions and disposition. Disposition - Clinical Impression Clinical Impression: Proctitis Counseled Patient/Family Regarding: Studies Performed, Diagnosis, Need For Followup, Rx Given - Disposition Referrals: Shamir Chiu [Staff Provider] - (FOLLOW UP WITHIN A WEEK FOR REEVALUATION) Disposition: Routine/Home Disposition Time: 17:50 Condition: IMPROVED Prescriptions: Ciprofloxacin [Cipro] 1 tab PO BID #20 tab metroNIDAZOLE [Flagyl] 500 mg PO TID #30 tab traMADol [Ultram] 50 mg PO TID PRN #15 tab PRN Reason: severe pain only Instructions: Proctitis, Taking Narcotics Safely Forms: [facility] (Bulgarian)
[2017-11-19 15:23] LABS: BASO # 0.1 K/uL (0.0-0.2); BASO % 2.1 % (0.0-2.0); EOS # 0.1 K/uL (0.0-0.7); EOS % 1.7 % (0.0-4.0); HEMOGLOBIN 10.7 g/dL (12.0-16.0); LYMPH # 0.9 K/uL (1.0-4.3); LYMPH % 18.4 % (20.0-40.0); MEAN CORPUSCULAR HGB CONC 31.7 g/dL (33.0-37.0); MEAN PLATELET VOLUME 9.1 fl (7.2-11.7); MONO # 0.5 K/uL (0.0-0.8); MONO % 10.5 % (0.0-10.0); NEUT # 3.5 K/uL (1.8-7.0); NEUT % 67.3 % (50.0-75.0); RBC 4.1 Mil/uL (3.80-5.20); RED CELL DISTRIBUTION WIDTH 15.2 % (11.5-14.5); WHITE BLOOD COUNT 5.1 K/uL (4.8-10.8)
[2017-11-19] MEDS ORDERED: Iohexol 300 100 ML IJ ONE (15:28)
[2017-11-19 15:31] LABS: ALB/GLOB RATIO 1.2 (1.0-2.1); ALBUMIN 3.8 g/dL (3.5-5.0); ALT/SGPT 31 U/L (9-52); AST/SGOT 17 U/L (14-36); BLOOD UREA NITROGEN 14 mg/dl (7-17); CALCIUM 9.3 mg/dL (8.4-10.2); GFR AFRICAN-AMERICAN > 60; GFR NON-AFRICAN AMERICAN 55
[2017-11-19] MEDS ORDERED: Sodium Chloride 0.9% 100 ML ONE (16:42)
--- NOTE | 2017-11-19 17:41 | CT ---
PROCEDURE: CT Abdomen and Pelvis with contrast HISTORY: rectal pain possible abscess INCLUDE SPINE PLEASE COMPARISON: CT abdomen and pelvis performed 01/11/16 TECHNIQUE: Contrast dose: 95 mL Omnipaque 300 Radiation dose: Total exam DLP = 1184.53 mGy-cm. This CT exam was performed using one or more of the following dose reduction techniques: Automated exposure control, adjustment of the mA and/or kV according to patient size, and/or use of iterative reconstruction technique. FINDINGS: LOWER THORAX: No visible consolidation, pleural effusion, or pneumothorax. LIVER: Unremarkable. GALLBLADDER AND BILE DUCTS: Unremarkable. PANCREAS: Unremarkable. SPLEEN: 11 mm probable splenule. Otherwise unremarkable unenhanced appearance. ADRENALS: Indeterminate 14 mm right adrenal gland and 15 mm left adrenal gland nodules. KIDNEYS AND URETERS: The kidneys enhance symmetrically. No hydronephrosis or obstructing calculus identified. VASCULATURE: Atherosclerotic calcifications and noncalcified plaque. 2.7 cm infrarenal abdominal aortic aneurysm. BOWEL: Stomach is nondistended. Lack of oral contrast limits evaluation for bowel pathology. Bowel loops appear within normal limits of caliber without evidence of obstruction. Questionable rectal wall thickening of uncertain significance ; correlate clinically for possibility of proctitis. No discrete fluid collection or abscess evident. APPENDIX: The appendix appears within normal limits of caliber. No secondary signs of acute appendicitis. PERITONEUM: No significant free fluid. No definite free air. LYMPH NODES: No bulky adenopathy identified. BLADDER: Under distended urinary bladder limits evaluation. REPRODUCTIVE: The uterus is present and contains mm calcification likely related to fibroids. BONES: Degenerative changes. OTHER FINDINGS: Tiny fat containing umbilical hernia. IMPRESSION: Questionable rectal wall thickening of uncertain significance ; correlate clinically for possibility of proctitis. No discrete fluid collection or abscess evident. Correlate clinically. Indeterminate 14 mm right adrenal gland and 15 mm left adrenal gland nodules re-identified. Dedicated cross-sectional imaging may be considered for further characterization, if indicated. Atherosclerotic calcifications and noncalcified plaque. 2.7 cm infrarenal abdominal aortic aneurysm. Additional findings as above.
[2017-11-19 18:23] VITALS: BP 126/82; PULSE 82
[2017-11-26 14:12] VITALS: O2SAT 98
== END 2017-11-19 18:25 | disposition home or self-care (01) ==
LOC: H.ER 13:54
DX: K62.89 Other specified diseases of anus and rectum (principal); J45.909 Unspecified asthma, uncomplicated; M06.9 Rheumatoid arthritis, unspecified; E11.9 Type 2 diabetes mellitus without complications; Z86.59 Personal history of other mental and behavioral disorders; I10 Essential (primary) hypertension; G89.29 Other chronic pain; Z86.73 Personal history of transient ischemic attack (TIA), and cerebral infarction without residual deficits; Z88.0 Allergy status to penicillin
CPT/HCPCS: 74177; 80053; 85025; 96374; 99282; J1885; J2270; Q9967

== ENCOUNTER 2018-01-02 06:09 | Day surgery (SDC) | payer MEDICARE, MEDICAID ==
[2018-01-02 07:08] VITALS: BMI 41.9
[2018-01-02] MEDS ORDERED: MethylPREDNISolone Depo 40 mg/ml Inj ONE (07:09)
[2018-01-02] MEDS ORDERED: Bupivacaine HCl 0.5% PF (30 ml) Inj ONE (07:10)
[2018-01-02] MEDS ORDERED: Iohexol 300 10 ML ONE (07:10)
[2018-01-02] MEDS ORDERED: Bupivacaine HCl 0.25% PF (30 ml) Inj ONE (07:10)
[2018-01-02] MEDS ORDERED: Lactated Ringer's 1,000 ML IV ONE (07:55)
[2018-01-02] MEDS ORDERED: Iohexol 300 10 ML IJ ONE (08:05)
[2018-01-02] MEDS ORDERED: Bupivacaine HCl 0.25% PF (30 ml) Inj IJ ONE (08:05)
[2018-01-02] MEDS ORDERED: Lidocaine 1% 5ml Abboject IV ONE (08:05)
[2018-01-02] MEDS ORDERED: methylPREDNISolone Depo 80 mg/ml Inj IM ONE (08:05)
[2018-01-02] MEDS ORDERED: HYDROmorphone 0.5 mg/0.5 ml ISec IVP PRN (08:20)
[2018-01-02] MEDS ORDERED: Lactated Ringer's 1,000 ML IV SCH (08:20)
[2018-01-02] MEDS ORDERED: HYDROmorphone 0.5 mg/0.5 ml ISec ONE (08:22)
--- NOTE | 2018-01-02 09:05 | OP ---
PROCEDURE DATE: 01/02/2018 PREOPERATIVE DIAGNOSIS: Coccydynia. POSTOPERATIVE DIAGNOSIS: Coccydynia. PROCEDURE: Sacrococcygeal ligament injection. SURGEON: Dipti Woods MD TYPE OF ANESTHESIA: Monitored anesthesia care. ANESTHESIOLOGIST: Jimmie Rodriguez MD COMPLICATIONS: None. SPECIMENS: None. DESCRIPTION OF PROCEDURE: As follows. After we had discussion of the procedure with the patient including its risks, benefits, alternatives, outcome data, possibility of no effects or increased pain, the patient consented to the procedure. She denied any recent infections, bleeding tendencies or being on anticoagulants. Decision was then made to proceed to the OR. The patient was placed on a prone position with two pillows underneath her abdomen. The back was prepped and draped in a usual sterile fashion and sterile technique was adhered during the entire procedure. On the lateral fluoroscopy view, the sacrococcygeal ligament at the junction of the sacrum and coccyx was identified. The skin darkly overlying this areas was then infiltrated with 1% lidocaine using 25-gauge needle. Subsequently, a -gauge 3.5 inch spinal needle was incrementally advanced under fluoroscopic guidance until the needle arnold the ligament. Needle was then advanced until the tip of the needle is approximately 2 mm anterior to the ligament. After negative aspiration, approximately 0.5 mL of Isovue contrast was injected showing appropriate spread without any signs of intravenous or epidural or intestinal involvement. At this point, approximately 4 mL of 0.5% Marcaine and Depo-Medrol mixture was injected. The needle was then withdrawn until the tip of the needle is within the ligament. At this point, approximately 1 mL of the previous solution was injected. The needle was then further withdrawn at the top of the sacrococcygeal ligament. The needle was then re-directly both anteriorly and posteriorly and approximately 4 mL of the same solution was distributed at this location. At the end of the procedure, the needles were removed and the patient's back was cleaned and dried; bandage was applied. The patient was then transferred to the recovery area in good condition without any signs of MOTOR TUNE UP SPECIALIST toxicity or any neurological deficits. She will have a followup in our office in approximately 2 to 4 weeks. En-Elie Woods MD [facility] # [id number]
[2018-01-02 09:36] VITALS: O2SAT 97
[2018-01-02 09:41] VITALS: BP 113/41; PULSE 47; RESP 20; TEMP 97.4
--- NOTE | 2018-01-05 15:51 | RAD ---
PROCEDURE: Intraoperative Fluoroscopy. HISTORY: EPIDURAL FINDINGS: Fluoroscopic assistance was provided for epidural steroid injection.. Please refer to the operative report from ANNELIESE Bryant. Total fluoroscopic time (continuous mode) utilized during the procedure 28.1 (seconds).
== END 2018-01-02 10:30 | disposition home or self-care (01) ==
LOC: H.OPSURG 06:09
PROVIDERS: ATTEND Anesthesiology
DX: M53.3 Sacrococcygeal disorders, not elsewhere classified (principal); E11.9 Type 2 diabetes mellitus without complications
CPT/HCPCS: 20552; 82948; J1030; J1040; J1170; J7120; Q9967

== ENCOUNTER 2018-02-14 19:11 | Emergency (ER) | payer MEDICARE, MEDICAID ==
[2018-02-14 19:11] VITALS: PULSE 56; BMI 41.9
[2018-02-14 19:19] VITALS: BP 151/74; PULSE 90; RESP 20; TEMP 98.3; O2SAT 100
[2018-02-14] MEDS ORDERED: DiphenhydrAMINE 50 mg/ml Inj IV STA (19:54)
[2018-02-14] MEDS ORDERED: DiphenhydrAMINE 50 mg/ml Inj ONE (21:03)
[2018-02-14 21:11] LABS: BASO % 0.6 % (0.0-2.0); EOS # 0.1 K/uL (0.0-0.7); EOS % 1.9 % (0.0-4.0); HEMOGLOBIN 10.9 g/dL (12.0-16.0); LYMPH # 1.2 K/uL (1.0-4.3); LYMPH % 20.3 % (20.0-40.0); MEAN CELL VOLUME 82.8 fl (81.0-99.0); MEAN CORPUSCULAR HEMOGLOBIN 26.4 pg (27.0-31.0); MEAN CORPUSCULAR HGB CONC 31.8 g/dL (33.0-37.0); MEAN PLATELET VOLUME 8.7 fl (7.2-11.7); MONO # 0.7 K/uL (0.0-0.8); MONO % 11.9 % (0.0-10.0); NEUT # 3.9 K/uL (1.8-7.0); NEUT % 65.3 % (50.0-75.0); NRBC % 0.1 % (0.0-0.0); RBC 4.13 Mil/uL (3.80-5.20); RED CELL DISTRIBUTION WIDTH 15.7 % (11.5-14.5)
[2018-02-14 21:15] LABS: BLOOD UREA NITROGEN 15 mg/dl (7-17); CALCIUM 9.1 mg/dL (8.4-10.2); GFR AFRICAN-AMERICAN > 60; GFR NON-AFRICAN AMERICAN > 60
--- NOTE | 2018-02-14 21:51 | ED PDOC ---
HPI: Skin/Bite Injury Time Seen by Provider: 02/14/18 19:27 Chief Complaint (Nursing): Abnormal Skin Integrity History Per: Patient History/Exam Limitations: no limitations Onset/Duration Of Symptoms: Days (X 2) Current Symptoms Are (Timing): Still Present Additional Complaint(s): 72-year-old female presents to ED with redness and itchiness to her left of her chest, onset 2 days ago. Patient reports it is getting worse and spreading. Patient states on Friday, pacemaker was placed in left chest at [facility] and was covered by tapes. A day later, patient removed tapes stating it was causing itchiness. Pt reports erythema and itchiness spreading in neck and down in her trunk. Denies any fevers or problems with pacemaker. Patient states pain in her left arm prompted [facility] visit. At [facility], was told she had low heart rate during [facility] visit and received pacemaker PMD: Dr. Almanza Advance Agent: Dr. Nevarez Past Medical History Reviewed: Historical Data, Nursing Documentation, Vital Signs Vital Signs: Last Vital Signs Temp 98.3 F 02/14/18 19:14 Pulse 90 02/14/18 19:14 Resp 20 02/14/18 19:14 BP 151/74 H 02/14/18 19:14 Pulse Ox 100 02/14/18 22:17 - Medical History PMH: Anxiety, Arthritis, Asthma, Atrial Fibrillation, Cardia Arrhythmia, CVA, Depression, Diabetes, HTN, Hypercholesterolemia, Rheumatoid Arthritis Denies: Chronic Kidney Disease - Surgical History Surgical History: Denies: CABG Other surgeries: Pacemaker placement, lapbend - Family History Family History: States: Unknown Family Hx, Stroke, Diabetes, Hypertension - Home Medications Home Medications: Ambulatory Orders Medication Instructions Recorded Fexofenadine HCl [Naya NF] 180 mg PO DAILY PRN 11/29/15 Digoxin [Digitek] 125 mcg PO DAILY #30 01/11/17 Enalapril Maleate [Vasotec] 2.5 mg PO DAILY #30 01/11/17 Gabapentin [Neurontin] 800 mg PO Q8H #90 01/11/17 Pioglitazone [Actos] 15 mg PO DAILY #30 01/11/17 Propranolol [Inderal] 20 mg PO BID #60 01/11/17 Rosuvastatin Calcium [Crestor] 5 mg PO DAILY #30 tab 01/11/17 Sitagliptin Phos/Metformin HCl 1 tab PO DAILY #30 01/11/17 [Janumet Xr 100-1,000 mg Tablet] Oxycodone HCl [Roxicodone] 30 mg PO .Q4-6 PRN 04/23/17 Clindamycin [Cleocin] 300 mg PO TID #30 cap 02/14/18 - Allergies Allergies/Adverse Reactions: Allergies Allergy/AdvReac Type Severity Reaction Status Date / Time penicillin G procaine Allergy RASH Verified 02/14/18 19:14 Penicillins Allergy RASH Verified 02/14/18 19:14 Sulfa (Sulfonamide Allergy RASH Verified 02/14/18 19:14 Antibiotics) Review of Systems ROS Statement: Except As Marked, All Systems Reviewed And Found Negative Skin: Positive for: Other (erythema and itchiness to left sided chest and neck) Physical Exam - Reviewed Nursing Documentation Reviewed: Yes Vital Signs Reviewed: Yes - Physical Exam Appears: Positive for: Non-toxic Head Exam: Positive for: ATRAUMATIC, NORMAL INSPECTION, NORMOCEPHALIC Eye Exam: Positive for: Normal appearance, EOMI, PERRL ENT: Positive for: Normal ENT Inspection Neck: Negative for: Normal ((+) Erythema spread to left side of neck) Cardiovascular/Chest: Positive for: Regular Rate, Rhythm, Other (Chest Wall Skin : (+) Left side is erythematous, (+) warmth (-) hives, (-) vesicles, (-) pustular, (-) swelling, Pacemaker area: (-) discharge or swelling. ) Respiratory: Positive for: Normal Breath Sounds. Negative for: Respiratory Distress Gastrointestinal/Abdominal: Positive for: Normal Exam, Soft. Negative for: Tenderness Back: Positive for: Normal Inspection Extremity: Positive for: Normal ROM. Negative for: Deformity Neurologic/Psych: Positive for: Alert, Oriented (x 3) - Laboratory Results Result Diagrams: 02/14/18 20:57 02/14/18 20:57 - ECG O2 Sat by Pulse Oximetry: 100 (RA) Pulse Ox Interpretation: Normal Medical Decision Making Medical Decision Making: Impression(s): Cellulitis of chest and neck s/p pacemaker placement Time: 19:53 Plan: - BMP - CBC - Benadryl 25 mg IV - Vancomycin Inj - Blood Culture Scribe Attestation: Documented by Darian Ling, acting as a scribe for Teresa Obrien Provider Scribe Attestation: All medical record entries made by the Scribe were at my direction and personally dictated by me. I have reviewed the chart and agree that the record accurately reflects my personal performance of the history, physical exam, medical decision making, and the department course for this patient. I have also personally directed, reviewed, and agree with the discharge instructions and disposition. Disposition - Clinical Impression Clinical Impression: Cellulitis - Patient ED Disposition Is Patient to be Admitted: No Doctor Will See Patient In The: Office Counseled Patient/Family Regarding: Studies Performed, Diagnosis, Need For Followup - Disposition Referrals: Koby Almanza MD [Family Provider] - Disposition: Routine/Home Disposition Time: 22:37 Condition: GOOD Additional Instructions: Return in 24 hours for recheck. Follow up with your PCP in 2-3 days. Prescriptions: Clindamycin [Cleocin] 300 mg PO TID #30 cap Instructions: Cellulitis (Skin Infection), Adult (DC)
== END 2018-02-14 23:39 | disposition home or self-care (01) ==
LOC: H.ER 19:11
DX: L03.313 Cellulitis of chest wall (principal); Z95.0 Presence of cardiac pacemaker; Z86.73 Personal history of transient ischemic attack (TIA), and cerebral infarction without residual deficits; Z88.0 Allergy status to penicillin; I10 Essential (primary) hypertension; Z86.59 Personal history of other mental and behavioral disorders; E11.9 Type 2 diabetes mellitus without complications; J45.909 Unspecified asthma, uncomplicated; I48.91 Unspecified atrial fibrillation; E78.00 Pure hypercholesterolemia, unspecified; M06.9 Rheumatoid arthritis, unspecified
CPT/HCPCS: 80048; 85025; 87040; 96374; 99282; J1200

== ENCOUNTER 2018-05-22 09:47 | Day surgery (SDC) | payer MEDICARE, MEDICAID ==
[2018-05-22 10:45] VITALS: BMI 42.5
[2018-05-22 11:19] VITALS: RESP 18
[2018-05-22] MEDS ORDERED: methylPREDNISolone Depo 80 mg/ml Inj ONE (11:49)
[2018-05-22] MEDS ORDERED: Iohexol 300 10 ML ONE (11:50)
[2018-05-22] MEDS ORDERED: Lactated Ringer's 1,000 ML IV ONE (11:55)
[2018-05-22] MEDS ORDERED: Propofol 10 mg/ml Inj (20 ML) ONE (11:58)
[2018-05-22] MEDS ORDERED: Lidocaine 2% PF (10 ml) Amp INJ ONE (12:03)
[2018-05-22] MEDS ORDERED: Iohexol 300 10 ML IJ ONE (12:03)
[2018-05-22] MEDS ORDERED: MethylPREDNISolone Depo 40 mg/ml Inj IM ONE (12:03)
[2018-05-22] MEDS ORDERED: Bupivacaine 0.5% Inj(30mL) IJ ONE (12:03)
[2018-05-22] MEDS ORDERED: HYDROmorphone 0.5 mg/0.5 ml ISec IVP PRN (12:25)
[2018-05-22 13:23] VITALS: TEMP 97.2; O2SAT 98
[2018-05-22 13:31] VITALS: BP 124/70; PULSE 70
--- NOTE | 2018-05-22 14:09 | RAD ---
Date of service: 05/22/2018 PROCEDURE: Fluoroscopy up to 1 hr. HISTORY: PAIN MANAGEMENT COMPARISON: None TECHNIQUE: Standard protocol for this study/examination. FINDINGS: Total fluoroscopic time (continuous mode) utilized during the procedure 54.9 (seconds). IMPRESSION: Less than 1 hr fluoroscopic assistance provided during performance of the procedure.
--- NOTE | 2018-05-23 02:35 | OP ---
PROCEDURE DATE: 05/22/2018 PREOPERATIVE DIAGNOSIS: Coccydynia. POSTOPERATIVE DIAGNOSIS: Coccydynia. PROCEDURE: Ganglion impar injection. ANESTHESIOLOGIST: Chidi Luna MD SURGEON: Dipti Woods MD TYPE OF ANESTHESIA: Moderate anesthesia care. COMPLICATION: None. SPECIMEN: None. DESCRIPTION OF PROCEDURE: Procedure is as follows. After we had a discussion of the procedure with the patient including its risks, benefits, alternatives, outcome data, possibility of no effect or increased pain, the patient consented to the procedure. She denies any recent infection or bleeding tendencies. A decision was then made to proceed to the OR. She has stopped the Xarelto more than five days prior to the procedure. The patient was placed on the fluoroscopy table in a prone position with two pillows underneath her abdomen. The sacral region was prepped and draped in the usual sterile fashion, and a sterile technique was adhered to during the entire procedure. The sacrum was first visualized on the anteroposterior view. Care was taken to debby the midline of the sacrum. Then, the fluoroscopy was turned towards the lateral position until the sacrococcygeal ligament was seen. The skin overlying this area was then infiltrated with 1% lidocaine using 25 gauge needle. Subsequently, a 25-gauge 3-1/2-inch spinal needle was incrementally advanced under fluoroscopic guidance until the tip of the needle walked into the joint. The needle was then inserted until the tip is approximately 5 mm anterior to the sacrum. This was confirmed by injecting approximately 1 mL of Isovue contrast. After appropriate placement of the needle, approximately 5 mL of 0.25% of Marcaine and Depo-Medrol mixture was injected. The needle was then removed. The patient's back was cleaned, and dry bandages were applied. The patient was then transferred to the recovery area in good condition without any signs of MARKETING INFORMATION COORDINATOR toxicity or any neurological deficit. She will be following in the office in approximately two to four weeks. Dipti Woods MD
== END 2018-05-22 13:50 | disposition home or self-care (01) ==
LOC: H.OPSURG 09:47
PROVIDERS: ATTEND Anesthesiology
DX: M53.3 Sacrococcygeal disorders, not elsewhere classified (principal); M19.90 Unspecified osteoarthritis, unspecified site; Z86.73 Personal history of transient ischemic attack (TIA), and cerebral infarction without residual deficits; E11.9 Type 2 diabetes mellitus without complications; I10 Essential (primary) hypertension; Z95.0 Presence of cardiac pacemaker
CPT/HCPCS: 64999; 82948; J1030; J1040; J2704; J7120; Q9967

== ENCOUNTER 2018-07-10 20:19 | Emergency (ER) | payer MEDICARE, MEDICAID ==
[2018-07-10 20:19] VITALS: PULSE 56; BMI 42.5
[2018-07-10 20:51] VITALS: BP 142/83; PULSE 72; RESP 16; TEMP 98.2; O2SAT 99
--- NOTE | 2018-07-10 21:32 | ED PDOC ---
Lower Extremity Pain/Injury Time Seen by Provider: 07/10/18 20:56 Chief Complaint (Nursing): Lower Extremity Problem/Injury Chief Complaint (Provider): Lower Extremity Problem/Injury History Per: Patient History/Exam Limitations: no limitations Onset/Duration Of Symptoms: Mins (just prior to arrival) Current Symptoms Are (Timing): Still Present Severity: Moderate Additional Complaint(s): 73 year old female with a past medical history of diabetes presents to the ED with complaints of a laceration on her left great toe that she sustained just prior to arrival. Patient reports that a piece of wood with a metal edge that she keeps above her washing machine fell on her left great toe and caused the laceration. Bleeding was controlled. Patient's last tetanus was less than 5x years ago. PMD: Koby Almanza MD - Ankle/Foot Description Of Injury: Laceration (left great toe) Past Medical History Reviewed: Historical Data, Nursing Documentation, Vital Signs Vital Signs: Last Vital Signs Temp 98.2 F 07/10/18 20:47 Pulse 72 07/10/18 20:47 Resp 16 07/10/18 20:47 BP 142/83 07/10/18 20:47 Pulse Ox 99 07/10/18 20:47 - Medical History PMH: Anxiety, Arthritis (knees,shoulders), Asthma, Atrial Fibrillation, Cardia Arrhythmia, CVA, Depression, Diabetes, HTN, Hypercholesterolemia, Rheumatoid Arthritis Denies: Chronic Kidney Disease - Surgical History Surgical History: Pacemaker (february-2018) Denies: CABG - Family History Family History: States: Unknown Family Hx, Stroke, Diabetes, Hypertension - Immunization History Hx Tetanus Toxoid Vaccination: Yes (up to date, less than 5x years ago) - Home Medications Home Medications: Ambulatory Orders Medication Instructions Recorded Fexofenadine HCl [Naya NF] 180 mg PO DAILY PRN 11/29/15 Enalapril Maleate [Vasotec] 2.5 mg PO DAILY #30 01/11/17 Pioglitazone [Actos] 15 mg PO DAILY #30 01/11/17 Rosuvastatin Calcium [Crestor] 5 mg PO DAILY #30 tab 01/11/17 Sitagliptin Phos/Metformin HCl 1 tab PO DAILY #30 01/11/17 [Janumet Xr 100-1,000 mg Tablet] Oxycodone HCl [Roxicodone] 30 mg PO .Q4-6 PRN 04/23/17 Rivaroxaban [Xarelto] 20 mg PO DAILY 05/18/18 Gabapentin [Neurontin] 800 mg PO BID 05/22/18 Metoprolol Succinate [Kapspargo 50 mg PO DAILY 05/22/18 Sprinkle] Clindamycin [Cleocin] 300 mg PO QID #28 cap 07/10/18 - Allergies Allergies/Adverse Reactions: Allergies Allergy/AdvReac Type Severity Reaction Status Date / Time penicillin G procaine Allergy RASH Verified 05/22/18 11:35 Penicillins Allergy RASH Verified 05/22/18 11:35 Sulfa (Sulfonamide Allergy RASH Verified 05/22/18 11:35 Antibiotics) Review of Systems ROS Statement: Except As Marked, All Systems Reviewed And Found Negative Musculoskeletal: Positive for: Other (left great toe laceration and pain) Physical Exam - Reviewed Nursing Documentation Reviewed: Yes Vital Signs Reviewed: Yes - Physical Exam Appears: Positive for: Well, Non-toxic, No Acute Distress Head Exam: Positive for: ATRAUMATIC, NORMOCEPHALIC Skin: Positive for: Normal Color Extremity: Positive for: Other (3 cm linear laceration on dorsal surface of great toe (left). (-) active bleeding) Neurologic/Psych: Positive for: Alert, Oriented (3x) - ECG O2 Sat by Pulse Oximetry: 99 (RA) Pulse Ox Interpretation: Normal Medical Decision Making Medical Decision Makin:56 Initial impression: 73 year old female with a left great toe laceration. Initial plan: Patient is declining pain medication in the ED. * XRay foot left great toe * laceration repair * Podiatry consult completed. Laceration repair by podiatry resident. Scribe Attestation: Documented by Roberta Teran, acting as a scribe for Jenelle Jaime PA-C. Provider Scribe Attestation: All medical record entries made by the Scribe were at my direction and personally dictated by me. I have reviewed the chart and agree that the record accurately reflects my personal performance of the history, physical exam, medical decision making, and the department course for this patient. I have also personally directed, reviewed, and agree with the discharge instructions and disposition. Disposition - Clinical Impression Clinical Impression: Toe laceration - Patient ED Disposition Is Patient to be Admitted: No Counseled Patient/Family Regarding: Diagnosis, Need For Followup, Rx Given - Disposition Referrals: Podiatry Clinic [Outside] Jeanne Griffin DPM [Staff Provider] - Disposition: Routine/Home Disposition Time: 23:06 Condition: GOOD Additional Instructions: Please follow-up with podiatry in 2 weeks. Prescriptions: Clindamycin [Cleocin] 300 mg PO QID #28 cap Instructions: Laceration Repair Forms: [facility] (Czech)
--- NOTE | 2018-07-10 22:50 | ED PDOC ---
- ECG O2 Sat by Pulse Oximetry: 99 (RA) Pulse Ox Interpretation: Normal Medical Decision Making Medical Decision Making: Case endorsed to jingle writer, Fanny DOBSON, at 2300. Pertinent details reviewed. Patient pending podiatry evaluation and laceration repair. Disposition - Disposition Forms: [facility] (Wolof)
--- NOTE | 2018-07-10 23:44 | CP.PCM.CON ---
History of Present Illness - History of Present Illness History of Present Illness: Podiatry Consult Note for Dr. Griffin 73F H SVT, CVA 15 years ago?, hypertension, diabetes mellitus, aortic aneurysm, L sided weakness upper and lower extremities due to back pain presents to ED with laceration of dorsal left hallux after dropping a home appliance on her toe earlier this afternoon. Patient states that her pain has gotten increasingly worse as the day has gone on. She is able to fully weight bear on the toe at this time. She states that she normally suffers from mild polyneuropathy in her feet and does not have any different neurological sensation in her hallux at this time. She also states that she is able to bend and extend her hallux. She denies any further pedal complaints at this time. Denies any recent N/V/F/C/CP/SOB/D. Meds: See MAR All: Penicillin G procaine, Penicillins, Sulfa PSH: Pacemaker, left toe ORIF SH: Denies tobacco, alcohol or illicit drug use Review of Systems - Review of Systems All systems: reviewed and no additional remarkable complaints except Review of Systems: as per HPI Past Patient History - Infectious Disease Hx of Infectious Diseases: None - Tetanus Immunizations Tetanus Immunization: Unknown - Past Medical History & Family History Past Medical History?: Yes - Past Social History Smoking Status: Former Smoker - CARDIAC Hx Atrial Fibrillation: Yes Hx Cardia Arrhythmia: Yes Hx Hypercholesterolemia: Yes Hx Hypertension: Yes Hx Pacemaker: Yes (february-2017) - PULMONARY Hx Asthma: Yes - NEUROLOGICAL Hx Neurological Disorder: No Other/Comment: STROKE 1998. NEUROPATHY - HEENT Hx HEENT Problems: Yes Hx Cataracts: Yes (BILATERAL) - RENAL Hx Chronic Kidney Disease: No - ENDOCRINE/METABOLIC Hx Endocrine Disorders: Yes Hx Diabetes Mellitus Type 2: Yes Other/Comment: NEUROPATHY - HEMATOLOGICAL/ONCOLOGICAL Hx Blood Disorders: No Hx Blood Transfusions: No - INTEGUMENTARY Hx Dermatological Problems: No - MUSCULOSKELETAL/RHEUMATOLOGICAL Hx Arthritis: Yes (knees,shoulders) Hx Rheumatoid Arthritis: Yes - GASTROINTESTINAL Hx Gastrointestinal Disorders: No - GENITOURINARY/GYNECOLOGICAL Hx Genitourinary Disorders: No - PSYCHIATRIC Hx Anxiety: Yes Hx Depression: Yes - SURGICAL HISTORY Hx Coronary Artery Bypass Graft: No - ANESTHESIA Hx Anesthesia: Yes Hx Anesthesia Reactions: No Hx Malignant Hyperthermia: No Meds Home Medications: Home Medication List Medication Instructions Recorded Confirmed Type Clindamycin [Cleocin] 300 mg PO QID #28 cap 07/10/18 Rx Allergies/Adverse Reactions: Allergies Allergy/AdvReac Type Severity Reaction Status Date / Time penicillin G procaine Allergy RASH Verified 05/22/18 11:35 Penicillins Allergy RASH Verified 05/22/18 11:35 Sulfa (Sulfonamide Allergy RASH Verified 05/22/18 11:35 Antibiotics) Physical Exam - Constitutional Appears: Well, Non-toxic, No Acute Distress - Extremities Exam Additional comments: LLE focused exam: Vasc: DP/PT pulses fully palpable 2/4 b/l. Skin temperature warm to warm from proximal to distal. CFT < 3 seconds to all digits b/l. No edema noted b/l Neuro: Epicritic and protective sensation intact to b/l LE. Evidence of b/l polyneuropathy appreciated Derm: Approximately 2 cm laceration noted to dorsal aspect of left hallux. Laceration is noted to be superficial in nature. No probe to bone. No evidence of tendinous disruption. No erythema, malodor, purulent drainage or other clinical signs of infection noted MSK: POP to laceration site. No POP to hallux. ROM WNL to left hallux. MMT 5/5 in all major muscle groups - Neurological Exam Neurological exam: Alert, Normal Gait, Oriented x3 - Psychiatric Exam Psychiatric exam: Normal Affect, Normal Mood Results - Vital Signs Recent Vital Signs: Last Vital Signs Temp 98.2 F 07/10/18 20:47 Pulse 72 07/10/18 20:47 Resp 16 07/10/18 20:47 BP 142/83 07/10/18 20:47 Pulse Ox 99 07/10/18 23:17 Assessment & Plan - Assessment and Plan (Free Text) Assessment: 73F seen in ED for laceration of dorsal left foot Plan: Patient seen and evaluated Plan discussed with Dr. Griffin Xrays reviewed with no evidence of fracture appreciated Wound flushed with copious amounts of normal, sterile saline Left hallux anesthetized with 5 cc of 1% lidocaine plain Wound site closed with 3-0 nylon suture Wound dressed with gauze and coban Patient dispensed surgical shoe Patient instructed to keep foot elevated and iced for next 48 hours Rx Clindamycin Patient to follow up in Podiatry clinic in one week Patient instructed to return to ED immediately if any signs of infection should arise - Date & Time Date: 07/10/18 Time: 23:50
--- NOTE | 2018-07-11 12:37 | RAD ---
Date of service: 07/10/2018 PROCEDURE: HISTORY: crush injury with laceration COMPARISON: TECHNIQUE: FINDINGS: Status post 2nd and 3rd metatarsal surgery with fixation plates in place. No acute fracture. No significant soft tissue abnormality. Plantar heel spur. IMPRESSION: Postsurgical change. No fracture.
== END 2018-07-10 23:40 | disposition home or self-care (01) ==
LOC: H.ER 20:19
DX: S91.112A Laceration without foreign body of left great toe without damage to nail, initial encounter (principal); W23.0XXA Caught, crushed, jammed, or pinched between moving objects, initial encounter; Y92.89 Other specified places as the place of occurrence of the external cause; E11.9 Type 2 diabetes mellitus without complications

== ENCOUNTER 2018-10-09 06:39 | Day surgery (SDC) | payer MEDICARE ==
--- NOTE | 2018-10-09 07:35 | CP.SDSHP ---
Same Day Surgery H & P - History Proposed Procedure: Ganglion of impar injection Pre-Op Diagnosis: Coccydynia - Allergies Allergies: Allergies penicillin G procaine Allergy (Verified 05/22/18 11:35) RASH Penicillins Allergy (Verified 05/22/18 11:35) RASH Sulfa (Sulfonamide Antibiotics) Allergy (Verified 05/22/18 11:35) RASH - Physical Exam Neuro: WNL Heart: WNL Lungs: WNL - Impression Impression: coccydynia Pt. Evaluated Today:Candidate for Anesthesia & Procedure: Yes Short Stay Discharge - Short Stay Discharge Admitting Diagnosis/Reason for Visit: M53.3 Disposition: HOME/ ROUTINE
[2018-10-09 08:12] VITALS: RESP 20
[2018-10-09] MEDS ORDERED: Lactated Ringer's 1,000 ML IV ONE (08:25)
[2018-10-09] MEDS ORDERED: Lidocaine 1% Inj (20ml) ONE (08:28)
[2018-10-09] MEDS ORDERED: MethylPREDNISolone Depo 40 mg/ml Inj ONE (08:28)
[2018-10-09] MEDS ORDERED: Iohexol 300 10 ML ONE (08:28)
[2018-10-09] MEDS ORDERED: Propofol 10 mg/ml Inj (20 ML) ONE (08:29)
[2018-10-09] MEDS ORDERED: Bupivacaine 0.5% Inj(30mL) ONE (08:29)
[2018-10-09] MEDS ORDERED: Midazolam 2 MG/2 ML VIAL ONE (08:30)
[2018-10-09] MEDS ORDERED: HYDROmorphone 0.5 mg/0.5 ml ISec IVP PRN (09:12)
[2018-10-09] MEDS ORDERED: Lactated Ringer's 1,000 ML IV SCH (09:15)
[2018-10-09 10:33] VITALS: O2SAT 97
[2018-10-09 10:34] VITALS: BP 116/57; PULSE 138; TEMP 96.8
--- NOTE | 2018-10-09 11:40 | RAD ---
Date of service: 10/09/2018 PROCEDURE: Fluoroscopy up to 1 hr. HISTORY: PAIN MANAGEMENT COMPARISON: None TECHNIQUE: Standard protocol for this study/examination. FINDINGS: Total fluoroscopic time (continuous mode) utilized during the procedure 73.3 seconds. Total exam DLP: 60.81 (mGy). IMPRESSION: Less than 1 hr fluoroscopic assistance provided during performance of the procedure.
--- NOTE | 2018-10-09 19:26 | OP ---
PROCEDURE DATE: 10/09/2018 PREOPERATIVE DIAGNOSIS: Coccydynia and lumbar trigger points. POSTOPERATIVE DIAGNOSIS: Coccydynia and lumbar trigger points. PROCEDURE: Ganglion of Impar injection and lumbar trigger point injection. ANESTHESIOLOGIST: Brittny Gamble MD SURGEON: Dipti Woods MD ANESTHESIA TYPE: Monitored anesthesia care. COMPLICATIONS: None. SPECIMEN: None. DESCRIPTION OF PROCEDURE: After we had a discussion of the procedure with the patient including its risks, benefits, alternative, outcome data, possibility of no effect or increased pain, the patient consented to the procedure. She denied any recent infection or bleeding tendencies. Decision was then made to proceed to the OR. The patient has stopped her Xarelto since this past Friday. The patient was placed on a fluoroscopy table in a prone position with two pillows underneath her abdomen. The back was prepped and draped in a usual sterile fashion and a sterile technique was adhered to during the entire procedure. The sacrococcygeal ligament and joint was first visualized on the lateral view. The mid point was determined on the anterior-posterior view and a marker was placed. The skin overlying the sacrococcygeal joint was identified and infiltrated with 1% lidocaine using 25-gauge needle. Subsequently, a 25-gauge 2-1/2-inch spinal needle was then incrementally advanced under fluoroscopic guidance until the needle pierced the ligament and until the needle lay approximately 5 mm anterior to the sacrum. Care was taken not to advance the needle further into the shadows of the bowels. After appropriate placement of the needle, approximately 0.5 mL of Isovue contrast was injected showing appropriate spread. At this point, approximately 5 mL of 0.5% Marcaine and Depo-Medrol mixture was injected. The needle was then slightly withdrawn to the joint. At this point, another 3 mL of mixture was injected. The needle was then removed. Then, the trigger points on the lumbar paraspinal region, one on each side was then treated with 0.5% Marcaine approximately 5 mL on each side using the 25-gauge 1-1/2-inch needle. At the end of the procedure, the patient's back was cleaned and dry bandages were applied. The patient was then transferred to the recovery area in good condition without any signs of ANIMAL CARE PROVIDER toxicity or any neurological deficit. She will be followed in the office in approximately two to four weeks. Dipti Woods MD [facility] # [phone]
== END 2018-10-09 10:00 | disposition still patient (30) ==
LOC: H.OPSURG 06:39
PROVIDERS: ATTEND Anesthesiology
DX: M53.3 Sacrococcygeal disorders, not elsewhere classified (principal); Z86.73 Personal history of transient ischemic attack (TIA), and cerebral infarction without residual deficits; E11.9 Type 2 diabetes mellitus without complications; E78.5 Hyperlipidemia, unspecified; I10 Essential (primary) hypertension; E66.01 Morbid (severe) obesity due to excess calories; M67.48 Ganglion, other site
CPT/HCPCS: 20552; 64493; 82948; J1030; J2001; J2250; J2704; J3010; J7120; Q9967

== ENCOUNTER 2018-10-09 09:53 | Emergency (ER) | payer MEDICARE ==
[2018-10-09 09:54] VITALS: PULSE 56; BMI 42.5
--- NOTE | 2018-10-09 10:27 | ED PDOC ---
HPI: General Adult Time Seen by Provider: 10/09/18 10:03 Chief Complaint (Nursing): Palpitations Chief Complaint (Provider): Palpitations History Per: Patient History/Exam Limitations: no limitations Additional Complaint(s): 73 years old female with a history of diabetes, hypertension and AFib sent from PACU for tachycardia. Patient usually takes metoprolol but did not take it this morning. She reports she only took enalapril. Prior to procedure, which was ganglion block for coccydynia, patient was told he heart rate was in the range between 90 and 140. After procedure, patient was still found tachycardic and sen t to the ED. Patient denies any chest pain, shortness of breath or palpitations. PMD: Koby Jay Past Medical History Reviewed: Historical Data, Nursing Documentation, Vital Signs - Medical History PMH: Anxiety, Arthritis (knees,shoulders), Asthma, Atrial Fibrillation, Cardia Arrhythmia, CVA, Depression, Diabetes, HTN, Hypercholesterolemia, Rheumatoid Arthritis Denies: Chronic Kidney Disease - Surgical History Surgical History: Pacemaker (february-2018) Denies: CABG - Family History Family History: States: Unknown Family Hx, Stroke, Diabetes, Hypertension - Social History Current smoker - smoking cessation education provided: No Alcohol: None Drugs: Denies - Immunization History Hx Tetanus Toxoid Vaccination: Yes (up to date, less than 5x years ago) - Home Medications Home Medications: Ambulatory Orders Medication Instructions Recorded Fexofenadine HCl [Naya NF] 180 mg PO DAILY PRN 11/29/15 Enalapril Maleate [Vasotec] 2.5 mg PO DAILY #30 01/11/17 Pioglitazone [Actos] 15 mg PO DAILY #30 01/11/17 Rosuvastatin Calcium [Crestor] 5 mg PO DAILY #30 tab 01/11/17 Sitagliptin Phos/Metformin HCl 1 tab PO DAILY #30 01/11/17 [Janumet Xr 100-1,000 mg Tablet] Oxycodone HCl [Roxicodone] 30 mg PO .Q4-6 PRN 04/23/17 Rivaroxaban [Xarelto] 20 mg PO DAILY 05/18/18 Gabapentin [Neurontin] 800 mg PO BID 05/22/18 Metoprolol Succinate [Kapspargo 50 mg PO DAILY 05/22/18 Sprinkle] Clindamycin [Cleocin] 300 mg PO QID #28 cap 07/10/18 Rifampin [Rifadin] 300 mg PO DAILY 10/09/18 - Allergies Allergies/Adverse Reactions: Allergies Allergy/AdvReac Type Severity Reaction Status Date / Time penicillin G procaine Allergy RASH Verified 10/09/18 08:35 Penicillins Allergy RASH Verified 10/09/18 08:35 Sulfa (Sulfonamide Allergy RASH Verified 10/09/18 08:35 Antibiotics) Review of Systems ROS Statement: Except As Marked, All Systems Reviewed And Found Negative Cardiovascular: Positive for: Other (Tachycardic). Negative for: Chest Pain, Palpitations Respiratory: Negative for: Shortness of Breath Physical Exam - Reviewed Nursing Documentation Reviewed: Yes Vital Signs Reviewed: Yes - Physical Exam Appears: Positive for: Well, No Acute Distress Head Exam: Positive for: ATRAUMATIC, NORMOCEPHALIC Cardiovascular/Chest: Positive for: Tachycardia, Irregularly Irregular Respiratory: Positive for: Normal Breath Sounds. Negative for: Wheezing Neurologic/Psych: Positive for: Alert, Oriented (x3) - Laboratory Results Result Diagrams: 10/09/18 10:31 10/09/18 10:31 - ECG Interpretation Of ECG: A flutter @ 133 with variable AV block. Medical Decision Making Medical Decision Making: Time: 1007 Initial Impression: Differential includes but not limited to AFib with RVR and missed medication dose. Initial Plan: --EKG --CMP --Troponin --CBC --CXR --Metoprolol 50 mg PO 1132 CXR Findings: LUNGS: No active pulmonary disease. PLEURA: No significant pleural effusion identified, no pneumothorax apparent. CARDIOVASCULAR: Atherosclerotic calcifications identified primarily aortic arch. Position/ configuration of pacemaker\AICD device: Satisfactory. No radiographic findings to suggest acute or significant cardiovascular d isease. OSSEOUS STRUCTURES: No significant abnormalities. VISUALIZED UPPER ABDOMEN: Normal. OTHER FINDINGS: None. IMPRESSION: No active disease. No significant interval change compared to the prior examination(s). 12:20 Patient ready to go home, vital signs WNL. Case discussed with Dr. Almanza, agrees with discharge home. Scribe Attestation: Documented by Sammie Stephens, acting as a scribe for Renay Luis MD. Provider Scribe Attestation: All medical record entries made by the Scribe were at my direction and personally dictated by me. I have reviewed the chart and agree that the record accurately reflects my personal performance of the history, physical exam, medical decision making, and the department course for this patient. I have also personally directed, reviewed, and agree with the discharge instructions and disposition. Disposition - Clinical Impression Clinical Impression: Tachycardia, Atrial flutter with rapid ventricular response - Disposition Referrals: Koby Almanza MD [Family Provider] - Disposition: Routine/Home Disposition Time: 12:44 Condition: IMPROVED Instructions: Atrial Flutter, Tachycardia Forms: [facility] (Macedonian)
[2018-10-09 10:36] LABS: BASO % 0.5 % (0.0-2.0); EOS # 0.1 K/uL (0.0-0.7); EOS % 2.7 % (0.0-4.0); HEMOGLOBIN 11.3 g/dL (12.0-16.0); LYMPH # 0.6 K/uL (1.0-4.3); LYMPH % 18.2 % (20.0-40.0); MEAN CELL VOLUME 82.6 fl (81.0-99.0); MEAN CORPUSCULAR HEMOGLOBIN 26.9 pg (27.0-31.0); MEAN CORPUSCULAR HGB CONC 32.6 g/dL (33.0-37.0); MEAN PLATELET VOLUME 8.1 fl (7.2-11.7); MONO # 0.5 K/uL (0.0-0.8); MONO % 12.7 % (0.0-10.0); NEUT # 2.3 K/uL (1.8-7.0); NEUT % 65.9 % (50.0-75.0); NRBC % 0.1 % (0.0-0.0); RBC 4.2 Mil/uL (3.80-5.20); RED CELL DISTRIBUTION WIDTH 16.3 % (11.5-14.5); WHITE BLOOD COUNT 3.6 K/uL (4.8-10.8)
[2018-10-09 10:48] LABS: ALB/GLOB RATIO 1.2 (1.0-2.1); ALBUMIN 3.7 g/dL (3.5-5.0); ALT/SGPT 30 U/L (9-52); AST/SGOT 27 U/L (14-36); BLOOD UREA NITROGEN 15 mg/dl (7-17); CALCIUM 9.3 mg/dL (8.4-10.2); GFR NON-AFRICAN AMERICAN > 60
--- NOTE | 2018-10-09 11:35 | RAD ---
Date of service: 10/09/2018 HISTORY: Palpitations COMPARISON: 01/10/2017 FINDINGS: LUNGS: No active pulmonary disease. PLEURA: No significant pleural effusion identified, no pneumothorax apparent. CARDIOVASCULAR: Atherosclerotic calcifications identified primarily aortic arch. Position/ configuration of pacemaker No radiographic findings to suggest acute or significant cardiovascular disease. OSSEOUS STRUCTURES: No significant abnormalities. VISUALIZED UPPER ABDOMEN: Normal. OTHER FINDINGS: None. IMPRESSION: No active disease. No significant interval change compared to the prior examination(s).
[2018-10-09 12:35] VITALS: BP 118/45; PULSE 93; RESP 18; TEMP 98.2; O2SAT 99
--- NOTE | 2018-10-09 23:14 | CARD ---
APPROVED REPORT Date of service: 10/09/2018 EKG Measurement Heart [id number] <Conclusion> Atrial flutter with variable AV block Low voltage QRS Abnormal ECG
== END 2018-10-09 12:50 | disposition home or self-care (01) ==
LOC: H.ER 09:53
DX: R00.0 Tachycardia, unspecified (principal); I48.92 Unspecified atrial flutter; E11.9 Type 2 diabetes mellitus without complications; Z86.59 Personal history of other mental and behavioral disorders; I10 Essential (primary) hypertension; J45.909 Unspecified asthma, uncomplicated; Z86.73 Personal history of transient ischemic attack (TIA), and cerebral infarction without residual deficits; Z95.0 Presence of cardiac pacemaker; Z95.810 Presence of automatic (implantable) cardiac defibrillator; Z88.2 Allergy status to sulfonamides; Z88.0 Allergy status to penicillin; M06.9 Rheumatoid arthritis, unspecified

== ENCOUNTER 2018-12-21 10:53 | Observation (INO) | payer MEDICARE, MEDICAID ==
[2018-12-21 10:54] VITALS: BMI 42.5
--- NOTE | 2018-12-21 11:19 | ED PDOC ---
HPI: SOB/CHF/COPD Time Seen by Provider: 12/21/18 11:07 Chief Complaint (Nursing): Shortness Of Breath History Per: Patient Onset/Duration Of Symptoms: Other (1 month) Current Symptoms Are (Timing): Still Present Current Respiratory Medications: See Home Med List Severity: Mild Associated Symptoms: Chest Pain, Ankle/Leg Swelling Additional Complaint(s): Progressive SOB assoc with chest pain and swelling lower ext x 1 month. Worse over past 3 days. No improvement with outpt Lasix. Denies fever or cough. Denies calf pain Past Medical History Vital Signs: Last Vital Signs Temp 97.9 F 12/21/18 11:02 Pulse 60 12/21/18 11:02 Resp 24 12/21/18 11:02 BP 124/65 12/21/18 11:02 Pulse Ox 98 12/21/18 11:02 - Medical History PMH: Anxiety, Arthritis (knees,shoulders), Asthma, Atrial Fibrillation, Cardia Arrhythmia, CHF, CVA, Depression, Diabetes, HTN, Hypercholesterolemia, Rheumatoid Arthritis Denies: Chronic Kidney Disease - Surgical History Surgical History: Pacemaker (february-2017) Denies: CABG - Family History Family History: States: Unknown Family Hx, Stroke, Diabetes, Hypertension - Immunization History Hx Tetanus Toxoid Vaccination: Yes (up to date, less than 5x years ago) - Home Medications Home Medications: Ambulatory Orders Medication Instructions Recorded Fexofenadine HCl [Naya NF] 180 mg PO DAILY PRN 11/29/15 Sitagliptin Phos/Metformin HCl 1 tab PO DAILY #30 01/11/17 [Janumet Xr 100-1,000 mg Tablet] Oxycodone HCl [Roxicodone] 30 mg PO Q6 PRN 04/23/17 Rivaroxaban [Xarelto] 20 mg PO QPM 05/18/18 Gabapentin [Neurontin] 800 mg PO HS 05/22/18 Albuterol Sulfate [Ventolin Hfa] 2 puff IH Q4 PRN 12/21/18 Digoxin [Digitek] 125 mcg PO DAILY 12/21/18 Escitalopram [Lexapro] 10 mg PO DAILY 12/21/18 Fluticasone Nasal [Flonase] 2 spray SOCRATES DAILY PRN 12/21/18 Isoniazid [Niazid] 300 mg PO DAILY 12/21/18 Metoprolol Succinate XL [Toprol XL] 50 mg PO DAILY 12/21/18 Mirtazapine [Remeron] 7.5 mg PO HS PRN 12/21/18 Montelukast [Singulair] 10 mg PO HS 12/21/18 Aiela-4-Abop Ethyl Esters 1 GM 1 gm PO BID 12/21/18 [Lovaza] Pioglitazone [Actos] 45 mg PO DAILY 12/21/18 Pyridoxine [Vitamin B6 50 mg Tab] 50 mg PO DAILY 12/21/18 Rosuvastatin Calcium [Crestor] 5 mg PO DAILY 12/21/18 - Allergies Allergies/Adverse Reactions: Allergies Allergy/AdvReac Type Severity Reaction Status Date / Time penicillin G procaine Allergy RASH Verified 10/09/18 08:35 Penicillins Allergy RASH Verified 10/09/18 08:35 Sulfa (Sulfonamide Allergy RASH Verified 10/09/18 08:35 Antibiotics) Review of Systems ROS Statement: Except As Marked, All Systems Reviewed And Found Negative Cardiovascular: Positive for: Chest Pain Respiratory: Positive for: Shortness of Breath Musculoskeletal: Positive for: Other (Leg swelling) Physical Exam - Reviewed Nursing Documentation Reviewed: Yes Vital Signs Reviewed: Yes - Physical Exam Appears: Positive for: Non-toxic, No Acute Distress Head Exam: Positive for: ATRAUMATIC, NORMAL INSPECTION, NORMOCEPHALIC Skin: Positive for: Normal Color, Warm, DRY Eye Exam: Positive for: EOMI, Normal appearance, PERRL ENT: Positive for: Normal ENT Inspection Neck: Positive for: Normal, Painless ROM Cardiovascular/Chest: Positive for: Irregularly Irregular Respiratory: Positive for: Decreased Breath Sounds. Negative for: Wheezing, Respiratory Distress Gastrointestinal/Abdominal: Positive for: Normal Exam, Soft Back: Positive for: Normal Inspection Extremity: Positive for: Normal ROM, Swelling (2+ pitting edema lower ext bilat. No calf tenderness or erythema) Neurological/Psych: Positive for: Awake, Alert, Normal Tone - Laboratory Results Result Diagrams: 12/21/18 11:28 12/21/18 12:00 - ECG O2 Sat by Pulse Oximetry: 98 Disposition - Clinical Impression Clinical Impression: Chronic congestive heart failure, Chest pain - Patient ED Disposition Is Patient to be Admitted: Yes - Disposition Disposition Time: 11:23 Condition: FAIR - Pt Status Changed To: Hospital Disposition Of: Observation - POA Present On Arrival: None
[2018-12-21 11:34] LABS: BASO % 0.2 % (0.0-2.0); MONO # 0.6 K/uL (0.0-0.8)
[2018-12-21 11:39] LABS: HEMOGLOBIN 8.9 g/dL (12.0-16.0); LYMPH # 0.6 K/uL (1.0-4.3); LYMPH % 9.1 % (20.0-40.0); MEAN CELL VOLUME 82.3 fl (81.0-99.0); MEAN CORPUSCULAR HEMOGLOBIN 26.4 pg (27.0-31.0); MEAN PLATELET VOLUME 8.3 fl (7.2-11.7); MONO % 9.3 % (0.0-10.0); NEUT # 5.5 K/uL (1.8-7.0); NEUT % 81.4 % (50.0-75.0); PLATELET COUNT 260 K/uL (130-400); RBC 3.39 Mil/uL (3.80-5.20); RED CELL DISTRIBUTION WIDTH 16.2 % (11.5-14.5); WHITE BLOOD COUNT 6.7 K/uL (4.8-10.8)
[2018-12-21 12:13] LABS: BLOOD UREA NITROGEN 24 mg/dl (7-17); GFR NON-AFRICAN AMERICAN > 60
[2018-12-21 12:16] LABS: ALB/GLOB RATIO 1.2 (1.0-2.1); ALBUMIN 3.8 g/dL (3.5-5.0); ALT/SGPT 23 U/L (9-52); AST/SGOT 57 U/L (14-36)
[2018-12-21 12:25] LABS: B-TYPE NATRIURETIC PEPTIDE 2880 pg/ml (0-900)
[2018-12-21 12:28] LABS: LYMPHOCYTE 12 % (20-50); MONOCYTE 9 % (0-10); NEUTROPHIL 79 % (42-75); PLATELET ESTIMATE NORMAL (NORMAL); TOTAL CELLS COUNTED 100
[2018-12-21 12:30] LABS: ANISOCYTOSIS SLIGHT; LARGE PLATELETS PRESENT; OVALOCYTES MODERATE
--- NOTE | 2018-12-21 12:45 | RAD ---
Date of service: 12/21/2018 HISTORY: SOB COMPARISON: Chest radiograph 10/09/2018. TECHNIQUE: Chest PA and lateral views FINDINGS: LUNGS: Diminished inspiratory volume. No definitive infiltrate bilaterally. PLEURA: No significant pleural effusion identified. No pneumothorax apparent. CARDIOVASCULAR: Calcific atherosclerotic changes are seen related to the thoracic aorta. Normal cardiac size. Unipolar permanent cardiac pacemaker reiterated. No pulmonary vascular congestion. OSSEOUS STRUCTURES: No significant abnormalities. VISUALIZED UPPER ABDOMEN: Normal. OTHER FINDINGS: None. IMPRESSION: Diminished inspiratory volume. No acute cardiopulmonary findings identified at this time. Pacemaker reiterated.
--- NOTE | 2018-12-21 13:16 | US ---
Date of service: 12/21/2018 PROCEDURE: Bilateral lower extremity venous duplex Doppler. HISTORY: Bilateral extremity swelling. COMPARISON: Comparison made with prior right lower extremity venous Doppler 06/20/2016. TECHNIQUE: Bilateral common femoral, superficial femoral, popliteal and posterior tibial veins were evaluated. Flow was assessed with color Doppler, compressibility, assessment of phasic flow and augmentation response. FINDINGS: COMMON FEMORAL VEIN: Right CFV: Unremarkable. Left CFV: Unremarkable. SUPERFICIAL FEMORAL VEIN: Right SFV: Unremarkable. Left SFV: Unremarkable. POPLITEAL VEIN: Right Popliteal: Unremarkable. Left Popliteal: Unremarkable. POSTERIOR TIBIAL VEIN: Right PTV: Unremarkable. Left PTV: Unremarkable. OTHER FINDINGS: None. IMPRESSION: No evidence of deep venous thrombosis.
--- NOTE | 2018-12-21 15:45 | CP.PCM.HP ---
<HenrryMichaelAnnabella snyder - Last Filed: 12/21/18 17:16> History of Present Illness - History of Present Illness History of Present Illness: 73-year-old female with PMH of DM2, HTN, AFib and chronic back pain presents for progressive swelling in bilateral lower extremities and SOB with walking for 2 month duration. Was seen by her PMD who sent her to [facility] ED after she failed outpatient diuretics, however, patient states she is "afraid of water pills" and only took one single dose. She admits to weight gain but denies chest pain, syncope, change in vision, nausea, vomiting, fever, and recent illness. PMD: Dr. Almanza, [employer] - Dr Hatch PMH: HTN, DM2, lower back pain PSH: lap band (2009, removed 2016), foot fracture FH: pt unknown SH: denies ETOH, tobacco (quit 15 years ago), IVDU Meds: per reconciliation Allergies: PCN, Sulfa ROS: all other systems reviewed and negative unless otherwise noted in HPI Present on Admission - Present on Admission Any Indicators Present on Admission: No Past Patient History - Infectious Disease Hx of Infectious Diseases: None - Tetanus Immunizations Tetanus Immunization: Unknown - Past Medical History & Family History Past Medical History?: Yes - Past Social History Smoking Status: Former Smoker - CARDIAC Hx Atrial Fibrillation: Yes Hx Cardia Arrhythmia: Yes Hx Congestive Heart Failure: Yes Hx Hypercholesterolemia: Yes Hx Hypertension: Yes Hx Pacemaker: Yes (february-2017) - PULMONARY Hx Asthma: Yes - NEUROLOGICAL Hx Neurological Disorder: Yes - HEENT Hx HEENT Problems: Yes Hx Cataracts: Yes (BILATERAL) - RENAL Hx Chronic Kidney Disease: No - ENDOCRINE/METABOLIC Hx Endocrine Disorders: Yes Hx Diabetes Mellitus Type 2: Yes Other/Comment: NEUROPATHY - HEMATOLOGICAL/ONCOLOGICAL Hx Blood Disorders: No Hx Blood Transfusions: No - INTEGUMENTARY Hx Dermatological Problems: No - MUSCULOSKELETAL/RHEUMATOLOGICAL Hx Arthritis: Yes (knees,shoulders) Hx Rheumatoid Arthritis: Yes - GASTROINTESTINAL Hx Gastrointestinal Disorders: No - GENITOURINARY/GYNECOLOGICAL Hx Genitourinary Disorders: No - PSYCHIATRIC Hx Anxiety: Yes Hx Depression: Yes - SURGICAL HISTORY Hx Coronary Artery Bypass Graft: No - ANESTHESIA Hx Anesthesia: Yes Hx Anesthesia Reactions: No Hx Malignant Hyperthermia: No Meds Allergies/Adverse Reactions: Allergies Allergy/AdvReac Type Severity Reaction Status Date / Time penicillin G procaine Allergy RASH Verified 10/09/18 08:35 Penicillins Allergy RASH Verified 10/09/18 08:35 Sulfa (Sulfonamide Allergy RASH Verified 10/09/18 08:35 Antibiotics) Physical Exam - Constitutional Appears: Non-toxic, No Acute Distress - Head Exam Head Exam: NORMAL INSPECTION - Eye Exam Eye Exam: Normal appearance - ENT Exam ENT Exam: Mucous Membranes Moist - Respiratory Exam Respiratory Exam: Respiratory Distress, NORMAL BREATHING PATTERN - Cardiovascular Exam Cardiovascular Exam: REGULAR RHYTHM - GI/Abdominal Exam GI & Abdominal Exam: Distended - Extremities Exam Additional comments: edema +2 - Neurological Exam Neurological exam: Alert, Oriented x3 - Psychiatric Exam Psychiatric exam: Normal Affect, Normal Mood - Skin Skin Exam: Normal Color Results - Vital Signs Recent Vital Signs: Last Vital Signs Temp 97.9 F 12/21/18 11:02 Pulse 60 12/21/18 11:02 Resp 22 12/21/18 11:30 BP 121/68 12/21/18 11:39 Pulse Ox 98 12/21/18 13:02 - Labs Result Diagrams: 12/21/18 11:28 12/21/18 12:00 Labs: Laboratory Results - last 24 hr 12/21/18 12/21/18 12/21/18 11:28 11:28 12:00 WBC 6.7 D RBC 3.39 L Hgb 8.9 L D Hct 27.9 L MCV 82.3 MCH 26.4 L MCHC 32.0 L RDW 16.2 H Plt Count 260 MPV 8.3 Neut % (Auto) 81.4 H Lymph % (Auto) 9.1 L [place] % (Auto) 9.3 Eos % (Auto) 0.0 Baso % (Auto) 0.2 Neut # (Auto) 5.5 Lymph # (Auto) 0.6 L [place] # (Auto) 0.6 Eos # (Auto) 0.0 Baso # (Auto) 0.0 Neutrophils % (Manual) 79 H Lymphocytes % (Manual) 12 L Monocytes % (Manual) 9 Platelet Estimate Normal Large Platelets Present Anisocytosis (manual) Slight Ovalocytes Moderate Sodium 136 Potassium 4.9 Chloride 101 Carbon Dioxide 31 H Anion Gap 9 L BUN 24 H Creatinine 0.8 Est GFR ( Amer) > 60 Est GFR (Non-Af Amer) > 60 Random Glucose 166 H Calcium 9.0 Total Bilirubin 0.9 AST 57 H D ALT 23 Alkaline Phosphatase 70 Troponin I 0.0230 NT-Pro-B Natriuret Pep 2880 H Total Protein 7.0 Albumin 3.8 Globulin 3.1 Albumin/Globulin Ratio 1.2 Digoxin 0.7 L Assessment & Plan - Assessment and Plan (Free Text) Assessment: 73-year-old female with PMH of DM2, HTN and AFib presents for progressive swelling in bilateral lower extremities and SOB with walking for 2 month duration. Plan: Volume overload -s/p Lasix 40 in ED -Lasix 40 mg IVP BID -f/u Echo -Pro BNP: 2880 -Troponin neg -f/u Cardiology consult -Monitor vitals DM2 -C/w home meds; Actos 45 mg daily HTN -Metoprolol 50 daily Hx of AFib -C/w home meds; digoxin 0.125mg daily Chronic Back Pain -Chronic, monitor DVT Prophylaxis -Lovenox <Margaret Peraza - Last Filed: 12/22/18 07:30> Results - Vital Signs Recent Vital Signs: Last Vital Signs Temp 97.3 F L 12/22/18 04:52 Pulse 65 12/22/18 04:52 Resp 19 12/22/18 04:52 BP 112/55 L 12/22/18 04:52 Pulse Ox 97 12/22/18 04:52 - Labs Result Diagrams: 12/22/18 05:04 12/22/18 05:04 Labs: Laboratory Results - last 24 hr 12/21/18 12/21/18 12/21/18 11:28 11:28 12:00 WBC 6.7 D RBC 3.39 L Hgb 8.9 L D Hct 27.9 L MCV 82.3 MCH 26.4 L MCHC 32.0 L RDW 16.2 H Plt Count 260 MPV 8.3 Neut % (Auto) 81.4 H Lymph % (Auto) 9.1 L [place] % (Auto) 9.3 Eos % (Auto) 0.0 Baso % (Auto) 0.2 Neut # (Auto) 5.5 Lymph # (Auto) 0.6 L [place] # (Auto) 0.6 Eos # (Auto) 0.0 Baso # (Auto) 0.0 Neutrophils % (Manual) 79 H Lymphocytes % (Manual) 12 L Monocytes % (Manual) 9 Platelet Estimate Normal Large Platelets Present Anisocytosis (manual) Slight Ovalocytes Moderate Sodium 136 Potassium 4.9 Chloride 101 Carbon Dioxide 31 H Anion Gap 9 L BUN 24 H Creatinine 0.8 Est GFR ( Amer) > 60 Est GFR (Non-Af Amer) > 60 POC Glucose (mg/dL) Random Glucose 166 H Calcium 9.0 Total Bilirubin 0.9 AST 57 H D ALT 23 Alkaline Phosphatase 70 Troponin I 0.0230 NT-Pro-B Natriuret Pep 2880 H Total Protein 7.0 Albumin 3.8 Globulin 3.1 Albumin/Globulin Ratio 1.2 Digoxin 0.7 L 12/21/18 12/21/18 12/22/18 16:15 21:52 05:04 WBC 5.7 RBC 3.43 L Hgb 9.1 L Hct 28.1 L MCV 81.8 MCH 26.5 L MCHC 32.4 L RDW 16.0 H Plt Count 276 MPV Neut % (Auto) Lymph % (Auto) [place] % (Auto) Eos % (Auto) Baso % (Auto) Neut # (Auto) Lymph # (Auto) [place] # (Auto) Eos # (Auto) Baso # (Auto) Neutrophils % (Manual) Lymphocytes % (Manual) Monocytes % (Manual) Platelet Estimate Large Platelets Anisocytosis (manual) Ovalocytes Sodium Potassium Chloride Carbon Dioxide Anion Gap BUN Creatinine Est GFR ( Amer) Est GFR (Non-Af Amer) POC Glucose (mg/dL) 195 H 188 H Random Glucose Calcium Total Bilirubin AST ALT Alkaline Phosphatase Troponin I NT-Pro-B Natriuret Pep Total Protein Albumin Globulin Albumin/Globulin Ratio Digoxin 12/22/18 12/22/18 05:04 05:58 WBC RBC Hgb Hct MCV MCH MCHC RDW Plt Count MPV Neut % (Auto) Lymph % (Auto) [place] % (Auto) Eos % (Auto) Baso % (Auto) Neut # (Auto) Lymph # (Auto) [place] # (Auto) Eos # (Auto) Baso # (Auto) Neutrophils % (Manual) Lymphocytes % (Manual) Monocytes % (Manual) Platelet Estimate Large Platelets Anisocytosis (manual) Ovalocytes Sodium 140 Potassium 3.7 Chloride 98 Carbon Dioxide 36 H Anion Gap 10 BUN 30 H Creatinine 1.1 Est GFR ( Amer) 59 Est GFR (Non-Af Amer) 49 POC Glucose (mg/dL) 138 H Random Glucose 128 H Calcium 9.4 Total Bilirubin AST ALT Alkaline Phosphatase Troponin I NT-Pro-B Natriuret Pep Total Protein Albumin Globulin Albumin/Globulin Ratio Digoxin Attending/Attestation - Attestation I have personally seen and examined this patient.: Yes I have fully participated in the care of the patient.: Yes I have reviewed all pertinent clinical information: Yes Notes (Text): 12/22/18 07:29 3-year-old female patient of Dr. Almanza sent to the emergency department by primary care physician for lower extremity edema and mild dyspnea. No official echo in chart, will obtain echo diuresis and likely sent home. Agree with findings and plan as above.
[2018-12-21] MEDS ORDERED: Albuterol HFA 90 mcg/actuation (8 g) IH PRN (16:01)
[2018-12-21] MEDS: Omega-3-Acid Ethyl Esters 1 GM Cap PO SCH (17:19)
--- NOTE | 2018-12-21 19:26 | CARD ---
APPROVED REPORT Date of service: 12/21/2018 EKG Measurement Heart [id number] <Conclusion> Ventricular-paced rhythm with occasional sinus complexes and with occasional premature ventricular complexes Abnormal ECG
[2018-12-22 05:43] LABS: CALCIUM 9.4 mg/dL (8.4-10.2)
[2018-12-22 05:53] LABS: HEMOGLOBIN 9.1 g/dL (12.0-16.0); MEAN CELL VOLUME 81.8 fl (81.0-99.0); MEAN CORPUSCULAR HEMOGLOBIN 26.5 pg (27.0-31.0); MEAN CORPUSCULAR HGB CONC 32.4 g/dL (33.0-37.0); RBC 3.43 Mil/uL (3.80-5.20); WHITE BLOOD COUNT 5.7 K/uL (4.8-10.8)
[2018-12-22 08:03] VITALS: RESP 20; TEMP 97.6
--- NOTE | 2018-12-22 08:40 | CP.PCM.DIS ---
<Mandy Hernandez - Last Filed: 12/22/18 12:27> Provider - Provider Date of Admission: 12/21/18 11:24 Attending physician: Margaret Peraza DO Primary care physician: Dr. Almanza and Dr. Hatch (Roll Machine Operator) Time Spent in preparation of Discharge (in minutes): 30 Diagnosis - Discharge Diagnosis (1) Chronic congestive heart failure Status: Acute Hospital Course - Lab Results Lab Results: Most Recent Lab Values WBC 5.7 K/uL (4.8-10.8) 12/22/18 05:04 RBC 3.43 Mil/uL (3.80-5.20) L 12/22/18 05:04 Hgb 9.1 g/dL (12.0-16.0) L 12/22/18 05:04 Hct 28.1 % (34.0-47.0) L 12/22/18 05:04 MCV 81.8 fl (81.0-99.0) 12/22/18 05:04 MCH 26.5 pg (27.0-31.0) L 12/22/18 05:04 MCHC 32.4 g/dL (33.0-37.0) L 12/22/18 05:04 RDW 16.0 % (11.5-14.5) H 12/22/18 05:04 Plt Count 276 K/uL (130-400) 12/22/18 05:04 MPV 8.3 fl (7.2-11.7) 12/21/18 11:28 Neut % (Auto) 81.4 % (50.0-75.0) H 12/21/18 11:28 Lymph % (Auto) 9.1 % (20.0-40.0) L 12/21/18 11:28 [place] % (Auto) 9.3 % (0.0-10.0) 12/21/18 11:28 Eos % (Auto) 0.0 % (0.0-4.0) 12/21/18 11:28 Baso % (Auto) 0.2 % (0.0-2.0) 12/21/18 11:28 Neut # (Auto) 5.5 K/uL (1.8-7.0) 12/21/18 11:28 Lymph # (Auto) 0.6 K/uL (1.0-4.3) L 12/21/18 11:28 [place] # (Auto) 0.6 K/uL (0.0-0.8) 12/21/18 11:28 Eos # (Auto) 0.0 K/uL (0.0-0.7) 12/21/18 11:28 Baso # (Auto) 0.0 K/uL (0.0-0.2) 12/21/18 11:28 Neutrophils % (Manual) 79 % (42-75) H 12/21/18 11:28 Lymphocytes % (Manual) 12 % (20-50) L 12/21/18 11:28 Monocytes % (Manual) 9 % (0-10) 12/21/18 11:28 Platelet Estimate Normal (NORMAL) 12/21/18 11:28 Large Platelets Present 12/21/18 11:28 Anisocytosis (manual) Slight 12/21/18 11:28 Ovalocytes Moderate 12/21/18 11:28 Sodium 140 mmol/l (132-148) 12/22/18 05:04 Potassium 3.7 MMOL/L (3.6-5.0) 12/22/18 05:04 Chloride 98 mmol/L (98-107) 12/22/18 05:04 Carbon Dioxide 36 mmol/L (22-30) H 12/22/18 05:04 Anion Gap 10 (10-20) 12/22/18 05:04 BUN 30 mg/dl (7-17) H 12/22/18 05:04 Creatinine 1.1 mg/dl (0.7-1.2) 12/22/18 05:04 Est GFR ( Amer) 59 12/22/18 05:04 Est GFR (Non-Af Amer) 49 12/22/18 05:04 POC Glucose (mg/dL) 138 mg/dL (65-110) H 12/22/18 05:58 Random Glucose 128 mg/dL (65-105) H 12/22/18 05:04 Calcium 9.4 mg/dL (8.4-10.2) 12/22/18 05:04 Total Bilirubin 0.9 mg/dl (0.2-1.3) 12/21/18 12:00 AST 57 U/L (14-36) H D 12/21/18 12:00 ALT 23 U/L (9-52) 12/21/18 12:00 Alkaline Phosphatase 70 U/L (38-126) 12/21/18 12:00 Troponin I 0.0230 ng/mL (0.00-0.120) 12/21/18 12:00 NT-Pro-B Natriuret Pep 2880 pg/ml (0-900) H 12/21/18 12:00 Total Protein 7.0 G/DL (6.3-8.2) 12/21/18 12:00 Albumin 3.8 g/dL (3.5-5.0) 12/21/18 12:00 Globulin 3.1 gm/dL (2.2-3.9) 12/21/18 12:00 Albumin/Globulin Ratio 1.2 (1.0-2.1) 12/21/18 12:00 Digoxin 0.7 ng/mL (0.8-2.0) L 12/21/18 11:28 - Hospital Course Hospital Course: 73-year-old female with history of DM2, HTN, AFib and chronic back pain presented to ED because of progressive swelling in bilateral lower extremities and SOB with walking for 2 month duration. Admitted for volume overload. During her hospital stay, patient's home medication, Actos, was discontinued as it could worsened her CHF. She recieved Lasix 40mg po IV BID during her stay. She was hemodynamically stable. After Lasix patient felt symptomatically better. Pro-BNP reported as 2880. ECHO was done during her stay. Patient to be discharged with Lasix 20mg po BID. To follow up with Dr. Almanza and Dr. Hatch, her cardiopulmonary specialist. Discharge Exam - Head Exam Head Exam: NORMAL INSPECTION - Eye Exam Eye Exam: Normal appearance - ENT Exam ENT Exam: Mucous Membranes Moist - Respiratory Exam Respiratory Exam: Decreased Breath Sounds (Decreased breath sounds given habitus. No crackles heard on exam), Clear to PA & Lateral, NORMAL BREATHING PATTERN. absent: Accessory Muscle Use, Chest Wall Tenderness, Prolonged Expira tory Phase, Rales, Rhonchi, Wheezes, Respiratory Distress, Stridor - Cardiovascular Exam Cardiovascular Exam: REGULAR RHYTHM, RRR, +S1, +S2 - GI/Abdominal Exam GI & Abdominal Exam: Normal Bowel Sounds (Obese abdomen), Soft, Unremarkable. absent: Firm, Guarding, Rebound, Rigid, Tenderness - Extremities Exam Extremities exam: normal capillary refill, normal inspection, pedal edema (+3 pedal edema ), pedal pulses present (+2 dorsalis pedis and posterior tibial pulses present bilaterally.) - Neurological Exam Neurological exam: Alert, Oriented x3 - Psychiatric Exam Psychiatric exam: Normal Affect, Normal Mood - Skin Skin Exam: Dry, Intact, Normal Color, Warm Discharge Plan - Discharge Medications Prescriptions: Furosemide [Lasix] 20 mg PO BID 30 Days #60 tablet Furosemide [Lasix] 20 mg PO BID 30 Days #60 tablet - Follow Up Plan Condition: GOOD Disposition: HOME/ ROUTINE Patient education suggested?: Yes Instructions: Heart Healthy Diet, Heart Failure, Adult (DC) Additional Instructions: follow up appt with on 12/29/18 12:00pm follow up with in 1 week Referrals: Koby Almanza MD [Staff Provider] - Sawyer Hatch MD [Staff Provider] - <Marilin Cook - Last Filed: 12/22/18 16:46> Provider - Provider Date of Admission: 12/21/18 11:24 Attending physician: Margaret Peraza DO Hospital Course - Lab Results Lab Results: Most Recent Lab Values WBC 5.7 K/uL (4.8-10.8) 12/22/18 05:04 RBC 3.43 Mil/uL (3.80-5.20) L 12/22/18 05:04 Hgb 9.1 g/dL (12.0-16.0) L 12/22/18 05:04 Hct 28.1 % (34.0-47.0) L 12/22/18 05:04 MCV 81.8 fl (81.0-99.0) 12/22/18 05:04 MCH 26.5 pg (27.0-31.0) L 12/22/18 05:04 MCHC 32.4 g/dL (33.0-37.0) L 12/22/18 05:04 RDW 16.0 % (11.5-14.5) H 12/22/18 05:04 Plt Count 276 K/uL (130-400) 12/22/18 05:04 MPV 8.3 fl (7.2-11.7) 12/21/18 11:28 Neut % (Auto) 81.4 % (50.0-75.0) H 12/21/18 11:28 Lymph % (Auto) 9.1 % (20.0-40.0) L 12/21/18 11:28 [place] % (Auto) 9.3 % (0.0-10.0) 12/21/18 11:28 Eos % (Auto) 0.0 % (0.0-4.0) 12/21/18 11:28 Baso % (Auto) 0.2 % (0.0-2.0) 12/21/18 11: Neut # (Auto) 5.5 K/uL (1.8-7.0) 12/21/18 11: Lymph # (Auto) 0.6 K/uL (1.0-4.3) L 12/21/18 11:28 [place] # (Auto) 0.6 K/uL (0.0-0.8) 12/21/18 11: Eos # (Auto) 0.0 K/uL (0.0-0.7) 12/21/18 11: Baso # (Auto) 0.0 K/uL (0.0-0.2) 12/21/18 11:28 Neutrophils % (Manual) 79 % (42-75) H 12/21/18 11:28 Lymphocytes % (Manual) 12 % (20-50) L 12/21/18 11:28 Monocytes % (Manual) 9 % (0-10) 12/21/18 11:28 Platelet Estimate Normal (NORMAL) 12/21/18 11:28 Large Platelets Present 12/21/18 11:28 Anisocytosis (manual) Slight 12/21/18 11:28 Ovalocytes Moderate 12/21/18 11:28 Sodium 140 mmol/l (132-148) 12/22/18 05:04 Potassium 3.7 MMOL/L (3.6-5.0) 12/22/18 05:04 Chloride 98 mmol/L (98-107) 12/22/18 05:04 Carbon Dioxide 36 mmol/L (22-30) H 12/22/18 05:04 Anion Gap 10 (10-20) 12/22/18 05:04 BUN 30 mg/dl (7-17) H 12/22/18 05:04 Creatinine 1.1 mg/dl (0.7-1.2) 12/22/18 05:04 Est GFR ( Amer) 59 12/22/18 05:04 Est GFR (Non-Af Amer) 49 12/22/18 05:04 POC Glucose (mg/dL) 168 mg/dL (65-110) H 12/22/18 11:00 Random Glucose 128 mg/dL (65-105) H 12/22/18 05:04 Calcium 9.4 mg/dL (8.4-10.2) 12/22/18 05:04 Total Bilirubin 0.9 mg/dl (0.2-1.3) 12/21/18 12:00 AST 57 U/L (14-36) H D 12/21/18 12:00 ALT 23 U/L (9-52) 12/21/18 12:00 Alkaline Phosphatase 70 U/L (38-126) 12/21/18 12:00 Troponin I 0.0230 ng/mL (0.00-0.120) 12/21/18 12:00 NT-Pro-B Natriuret Pep 2880 pg/ml (0-900) H 12/21/18 12:00 Total Protein 7.0 G/DL (6.3-8.2) 12/21/18 12:00 Albumin 3.8 g/dL (3.5-5.0) 12/21/18 12:00 Globulin 3.1 gm/dL (2.2-3.9) 12/21/18 12:00 Albumin/Globulin Ratio 1.2 (1.0-2.1) 12/21/18 12:00 Digoxin 0.7 ng/mL (0.8-2.0) L 12/21/18 11:28 Attending/Attestation - Attestation I have personally seen and examined this patient.: Yes I have fully participated in the care of the patient.: Yes I have reviewed all pertinent clinical information, including history, physical exam and plan: Yes Notes (Text): Acute CHF exacerbation prob systolic dysfunction, EF to be determined History of Tachy/Arturo Syndrome s/p Pacemaker Placement HTN DM Type II - SOB and leg edema improved with IV Lasix - will d/c home on PO Lasix , Digoxin and Toprol XL - Fluid restrictionm low Na diet - ff up with Dr Hatch for further cardiac work up - cont home meds - will call for ECHO result
[2018-12-22] MEDS ORDERED: Patient's Own Med (Sitagliptin Phos/Metformin Hcl [Janumet Xr 100-1,000 Mg Tablet] 1 TAB) PO SCH (09:00)
[2018-12-22] MEDS ORDERED: Enoxaparin 40 mg Syringe SC SCH (09:00)
[2018-12-22] MEDS ORDERED: Metoprolol Succinate 50 mg XL Tab PO SCH (09:00)
[2018-12-22] MEDS ORDERED: Digoxin 125 mcg (0.125 mg) Tab PO SCH (09:00)
[2018-12-22] MEDS: Omega-3-Acid Ethyl Esters 1 GM Cap PO SCH (10:17)
[2018-12-22 10:19] VITALS: PULSE 62
[2018-12-22 12:13] VITALS: BP 116/56; O2SAT 98
--- NOTE | 2018-12-22 20:51 | CARD ---
APPROVED REPORT Date of service: 12/22/2018 EXAM: Two-dimensional and M-mode echocardiogram with Doppler and color Doppler. Other Information Quality : GoodRhythm : Pacemaker Technically limited study due to body habitus. INDICATION Congestive Heart Failure Surgery/Intervention Pacemaker: 2D DIMENSIONS IVSd1.15 (0.7-1.1cm)LVDd4.47 (3.9-5.9cm) LVOT Diameter1.85 (1.8-2.4cm)PWd1.04 (0.7-1.1cm) IVSs1.40 (0.8-1.2cm)LVDs3.27 (2.5-4.0cm) FS (%) 26.9 %PWs1.17 (0.8-1.2cm) M-Mode DIMENSIONS Left Atrium (MM)5.21 (2.5-4.0cm)IVSd1.26 (0.7-1.1cm) Aortic Root2.68 (2.2-3.7cm)LVDd4.15 (4.0-5.6cm) Aortic Cusp Exc.1.65 (1.5-2.0cm)PWd1.15 (0.7-1.1cm) IVSs1.53 cmFS (%) 40 % LVDs2.50 (2.0-3.8cm)PWs1.47 cm Aortic Valve AoV Peak Lrnretde581.8cm/sAoV VTI32.7cmAO Peak GR.9mmHg LVOT Peak Agibhtyp80.1cm/sLVOT VTI21.33cmAO Mean GR.5mmHg MARJORIE (VMAX)0.92au4EGE (VTI)0.76cm2 Mitral Valve E/A ratio0.0 TDI E/Lateral E'0.0E/Medial E'0.0 Tricuspid Valve TR Peak [id number]/sRAP [id number] Peak Gr.32mmHg [id number] LEFT VENTRICLE The left ventricle is normal size. There is normal left ventricular wall thickness. The left ventricular systolic function is normal. The estimated ejection fraction is 55-60% No regional wall motion abnormalities noted.. The left ventricular diastolic function cannot be assessed due to underlying atrial fibrillation. No left ventricle thrombus noted on this study. There is no ventricular septal defect visualized. There is no left ventricular aneurysm. There is no mass noted in the left ventricle. RIGHT VENTRICLE The right ventricle is normal size. There is normal right ventricular wall thickness. The right ventricular systolic function is normal. A PPM lead is seen in right ventricle. ATRIA The left atrium is moderately dilated. The right atrium size is normal. The interatrial septum is intact with no evidence for an atrial septal defect. AORTIC VALVE The aortic valve is normal in structure. No aortic regurgitation is present. There is no aortic valvular stenosis. There is no aortic valvular vegetation. MITRAL VALVE The mitral valve is normal in structure. There is no evidence of mitral valve prolapse. There is no mitral valve stenosis. There is mild mitral valve regurgitation noted. TRICUSPID VALVE The tricuspid valve is normal in structure. There is moderate tricuspid valve regurgitation noted. RVSP is calculated at 45 mm Hg. There is no tricuspid valve prolapse or vegetation. There is no tricuspid valve stenosis. PULMONIC VALVE The pulmonary valve is normal in structure. There is no pulmonic valvular regurgitation. There is no pulmonic valvular stenosis. GREAT VESSELS The aortic root is normal in size. The ascending aorta is normal in size. The pulmonary artery is normal. The IVC is normal in size and collapses >50% with inspiration. PERICARDIAL EFFUSION There is no pericardial effusion. There is no pleural effusion. <Conclusion> The estimated ejection fraction is 55-60% The left ventricular diastolic function cannot be assessed due to underlying atrial fibrillation. A PPM lead is seen in right ventricle. The left atrium is moderately dilated. There is mild mitral valve regurgitation noted. There is moderate tricuspid valve regurgitation noted. RVSP is calculated at 45 mm Hg.
== END 2018-12-22 13:40 | disposition home or self-care (01) ==
LOC: H.ER 10:53 → H.ERHOLD 11:24 → H.TEL 19:08
PROVIDERS: ADMIT Student in an Organized Health Care Education/Training Program; ATTEND Student in an Organized Health Care Education/Training Program
DX: I11.0 Hypertensive heart disease with heart failure (principal); I50.23 Acute on chronic systolic (congestive) heart failure; I48.91 Unspecified atrial fibrillation; J44.9 Chronic obstructive pulmonary disease, unspecified; M06.9 Rheumatoid arthritis, unspecified; M17.0 Bilateral primary osteoarthritis of knee; Z79.01 Long term (current) use of anticoagulants; Z86.73 Personal history of transient ischemic attack (TIA), and cerebral infarction without residual deficits; Z87.891 Personal history of nicotine dependence; Z95.0 Presence of cardiac pacemaker; Z98.84 Bariatric surgery status; F32.9 Major depressive disorder, single episode, unspecified; F41.9 Anxiety disorder, unspecified; E11.42 Type 2 diabetes mellitus with diabetic polyneuropathy; G89.29 Other chronic pain; H26.9 Unspecified cataract; M19.012 Primary osteoarthritis, left shoulder; M19.011 Primary osteoarthritis, right shoulder; Z79.84 Long term (current) use of oral hypoglycemic drugs; Z79.899 Other long term (current) drug therapy; M54.5 Low back pain; E78.00 Pure hypercholesterolemia, unspecified
CPT/HCPCS: 36415; 71046; 80048; 80053; 80162; 82948; 83880; 84484; 85025; 85027; 93005; 93306; 93970; 96374; 99284; G0378; J1650; J1940

== ENCOUNTER 2019-02-04 14:38 | Observation (INO) | payer MEDICARE, MEDICAID ==
[2019-02-04 14:39] VITALS: BMI 42.5
--- NOTE | 2019-02-04 16:10 | RAD ---
Date of service: 02/04/2019 HISTORY: shortness of breath, cough COMPARISON: 12/21/2018 TECHNIQUE: Chest PA and lateral views FINDINGS: LUNGS: No active pulmonary disease. PLEURA: No significant pleural effusion identified. No pneumothorax apparent. CARDIOVASCULAR: There is presence of aortic atherosclerotic calcification on x-ray. Mild cardiomegaly similar No significant appearing pulmonary venous congestion. Single lead pacemaker device in place position grossly satisfactory similar-appearing OSSEOUS STRUCTURES: Thoraco lumbar spondylosis. VISUALIZED UPPER ABDOMEN: Normal. OTHER FINDINGS: None. IMPRESSION: No active disease. No interval pathology noted.
[2019-02-04 16:37] LABS: BASO % 0.7 % (0.0-2.0); EOS # 0.1 K/uL (0.0-0.7); EOS % 2.1 % (0.0-4.0); HEMOGLOBIN 8.5 g/dL (12.0-16.0); LYMPH # 0.9 K/uL (1.0-4.3); MEAN CELL VOLUME 76.1 fl (81.0-99.0); MEAN CORPUSCULAR HEMOGLOBIN 23.7 pg (27.0-31.0); MEAN CORPUSCULAR HGB CONC 31.1 g/dL (33.0-37.0); MEAN PLATELET VOLUME 7.7 fl (7.2-11.7); MONO # 0.8 K/uL (0.0-0.8); MONO % 11.6 % (0.0-10.0); NEUT # 5.1 K/uL (1.8-7.0); NEUT % 72.6 % (50.0-75.0); NRBC % 0.1 % (0.0-0.0); RBC 3.58 Mil/uL (3.80-5.20); RED CELL DISTRIBUTION WIDTH 17.5 % (11.5-14.5)
[2019-02-04 16:53] LABS: ALB/GLOB RATIO 1.3 (1.0-2.1); ALT/SGPT 20 U/L (9-52); AST/SGOT 30 U/L (14-36); BLOOD UREA NITROGEN 14 mg/dl (7-17); GFR NON-AFRICAN AMERICAN 55
[2019-02-04 17:05] LABS: B-TYPE NATRIURETIC PEPTIDE 2070 pg/ml (0-900)
--- NOTE | 2019-02-04 18:16 | ED PDOC ---
HPI: SOB/CHF/COPD Time Seen by Provider: 02/04/19 15:05 Chief Complaint (Nursing): Shortness Of Breath Chief Complaint (Provider): shortness of breath, chest discomfort History Per: Patient History/Exam Limitations: no limitations Additional Complaint(s): 73 y/o F with hx of HTN, HL, bradycardia s/p PPM in 2018, Afib on Xarelto and diastolic heart failure who was sent from PMD (Dr. Almanza) for evaluation of anemia and SOB. Pt states that she was discharged on 12/22 after being admitted for 1 - 2 days for heart failure requiring diuresis. She states that her legs appear much better but she has been sleeping in a recliner, is now only able to walk a couple of steps before onset of SOB and some SOB when speaking. She went to see her PMD for evaluation today and noted some chest discomfort with radiation to left shoulder that began about 2hrs prior to arrival to ER and has remained constant. She had blood work done a couple of days ago and was noted to have HgB 8.3 so was referred to ER for further evaluation. Further states that she has noted dark stools for the past week. Past Medical History Reviewed: Historical Data, Nursing Documentation, Vital Signs Vital Signs: Last Vital Signs Temp 98.2 F 02/04/19 16:33 Pulse 66 02/04/19 17:00 Resp 18 02/04/19 17:00 BP 121/47 L 02/04/19 17:00 Pulse Ox 100 02/04/19 17:00 Primary Care Provider: Koby Almanza - Medical History PMH: Anxiety, Arthritis (knees,shoulders), Asthma, Atrial Fibrillation, Cardia Arrhythmia, CHF, CVA, Depression, Diabetes, HTN, Hypercholesterolemia, Rheumatoid Arthritis Denies: Chronic Kidney Disease - Surgical History Surgical History: Pacemaker (february-2017) Denies: CABG - Family History Family History: States: Unknown Family Hx, Stroke, Diabetes, Hypertension - Immunization History Hx Tetanus Toxoid Vaccination: Yes (up to date, less than 5x years ago) - Home Medications Home Medications: Ambulatory Orders Medication Instructions Recorded Fexofenadine HCl [Naya NF] 180 mg PO DAILY PRN 11/29/15 Sitagliptin Phos/Metformin HCl 1 tab PO DAILY #30 01/11/17 [Janumet Xr 100-1,000 mg Tablet] Oxycodone HCl [Roxicodone] 30 mg PO Q6 PRN 04/23/17 Rivaroxaban [Xarelto] 20 mg PO QPM 05/18/18 Gabapentin [Neurontin] 800 mg PO HS 05/22/18 Albuterol Sulfate [Ventolin Hfa] 2 puff IH Q4 PRN 12/21/18 Digoxin [Digitek] 125 mcg PO DAILY 12/21/18 Escitalopram [Lexapro] 10 mg PO DAILY 12/21/18 Fluticasone Nasal [Flonase] 2 spray SOCRATES DAILY PRN 12/21/18 Isoniazid [Niazid] 300 mg PO DAILY 12/21/18 Metoprolol Succinate XL [Toprol XL] 50 mg PO DAILY 12/21/18 Mirtazapine [Remeron] 7.5 mg PO HS PRN 12/21/18 Montelukast [Singulair] 10 mg PO HS 12/21/18 Xxnrz-5-Cmpu Ethyl Esters 1 GM 1 gm PO BID 12/21/18 [Lovaza] Pyridoxine [Vitamin B6 50 mg Tab] 50 mg PO DAILY 12/21/18 Rosuvastatin Calcium [Crestor] 5 mg PO DAILY 12/21/18 Furosemide [Lasix] 20 mg PO BID 30 Days #60 tablet 12/22/18 Furosemide [Lasix] 20 mg PO BID 30 Days #60 tablet 12/22/18 - Allergies Allergies/Adverse Reactions: Allergies Allergy/AdvReac Type Severity Reaction Status Date / Time penicillin G procaine Allergy RASH Verified 02/04/19 14:52 Penicillins Allergy RASH Verified 02/04/19 14:52 Sulfa (Sulfonamide Allergy RASH Verified 02/04/19 14:52 Antibiotics) Review of Systems Constitutional: Negative for: Fever, Chills Cardiovascular: Positive for: Chest Pain, Orthopnea, Paroxysmal Noc. Dyspnea, Light Headedness. Negative for: Palpitations Respiratory: Positive for: Shortness of Breath, SOB with Exertion Physical Exam - Reviewed Nursing Documentation Reviewed: Yes Vital Signs Reviewed: Yes - Physical Exam Appears: Positive for: Uncomfortable (obese. Mildly tachypneic while speaking. ) Skin: Positive for: Normal Color Eye Exam: Positive for: Normal appearance Cardiovascular/Chest: Positive for: Regular Rate, Rhythm Respiratory: Positive for: Normal Breath Sounds Gastrointestinal/Abdominal: Positive for: Normal Exam Rectal: Positive for: Rectal Tone Is: (normal), Other (rectal performed in the presence of RN Lizette). Negative for: Black Stool, Blood Streaked Stool, Hemorrhoids, Mass Neurological/Psych: Positive for: Awake, Alert, Oriented - Laboratory Results Result Diagrams: 02/04/19 16:16 02/04/19 16:16 Lab Results: Troponin I < 0.0120 ng/mL (0.00-0.120) 02/04/19 16:16 NT-Pro-B Natriuret Pep 2070 pg/ml (0-900) H 02/04/19 16:16 Total Bilirubin 0.5 mg/dl (0.2-1.3) 02/04/19 16:16 AST 30 U/L (14-36) 02/04/19 16:16 ALT 20 U/L (9-52) 02/04/19 16:16 Alkaline Phosphatase 92 U/L (38-126) 02/04/19 16:16 Total Protein 7.1 G/DL (6.3-8.2) 02/04/19 16:16 Albumin 4.0 g/dL (3.5-5.0) 02/04/19 16:16 Globulin 3.1 gm/dL (2.2-3.9) 02/04/19 16:16 Albumin/Globulin Ratio 1.3 (1.0-2.1) 02/04/19 16:16 - ECG O2 Sat by Pulse Oximetry: 100 Medical Decision Making Medical Decision Making: CBC, CMP, trop EKG telemetry BNP Fecal occult blood PT/PTT/INR Type and screen Lasix 40mg IV x 1 tylenol 975mg PO x 1 CXR EKG: ventricular pacing, HR 60, no significant change. CXR: FINDINGS: LUNGS: No active pulmonary disease. PLEURA: No significant pleural effusion identified. No pneumothorax apparent. CARDIOVASCULAR: There is presence of aortic atherosclerotic calcification on x-ray. Mild cardiomegaly similar No significant appearing pulmonary venous congestion. Single lead pacemaker device in place position grossly satisfactory similar- appearing OSSEOUS STRUCTURES: Thoraco lumbar spondylosis. VISUALIZED UPPER ABDOMEN: Normal. OTHER FINDINGS: None. IMPRESSION: No active disease. No interval pathology noted. Trop < 0.120 BNP 2070 (improved from 2880 on 12/22/18) 18:25: case discussed with Dr. Vogel and care transitioned at this time. Pt to be admitted to Obs/tele for anemia and chest pain. Disposition - Clinical Impression Clinical Impression: Chest pain, Anemia - Patient ED Disposition Is Patient to be Admitted: Yes Discussed With : William Vogel Doctor Will See Patient In The: ED Counseled Patient/Family Regarding: Studies Performed, Diagnosis, Need For Followup - Disposition Disposition: Transfer of Care Disposition Time: 18:25 Condition: FAIR
--- NOTE | 2019-02-04 19:20 | CP.PCM.HP ---
<Alexa Anderson - Last Filed: 02/04/19 19:04> History of Present Illness - History of Present Illness History of Present Illness: CC: dyspnea and anemia HPI: 73 YO Female with PMHx of DM2, HTN, AFib and chronic back pain presents to [facility] ED for from PMD for anemia and worsening dyspnea. Patient states that for the past couple of months she has been getting short of breath and gaining weight. She has noticed that her feet get very swollen and has been on high dose of lasix at home without much overall improvement of her symptoms. In addition to her dyspnea, patient is also experiencing chest tightness. Earlier this week she was scheduled for a cardiac cath but was found to have anemia and the procedure was canceled. Today and dyspnea worsened, unable to climb stairs, and was told by MD to come to the hospital. Additionally, patient notes that for the last 6+ months she has noticed that her stool is darker then usual. Denies chest pain, palpitations, n/v, abd pain, fever and chills. Endorses good compliance with meds. PMD: Dr. Almanza, [employer] - Dr Hatch PMH: HTN, DM2, lower back pain, a fib PSH: lap band (2009, removed 2016), foot fracture, cardiac pacemaker (02/2018) FH: pt unknown SH: denies ETOH, tobacco (quit 15 years ago), IVDU Allergies: PCN, Sulfa--brandon Present on Admission - Present on Admission Any Indicators Present on Admission: No Review of Systems - Constitutional Constitutional: absent: Chills, Fever - Cardiovascular Cardiovascular: Dyspnea. absent: Chest Pain, Palpitations - Respiratory Respiratory: Cough, Dyspnea - Gastrointestinal Gastrointestinal: Other (dark stool ). absent: Abdominal Pain, Nausea, Vomiting Past Patient History - Infectious Disease Hx of Infectious Diseases: None - Tetanus Immunizations Tetanus Immunization: Unknown - Past Medical History & Family History Past Medical History?: Yes - Past Social History Smoking Status: Never Smoked Alcohol: None Drugs: Denies Home Situation {Lives}: With Family - CARDIAC Hx Atrial Fibrillation: Yes Hx Cardia Arrhythmia: Yes Hx Congestive Heart Failure: Yes Hx Hypercholesterolemia: Yes Hx Hypertension: Yes Hx Pacemaker: Yes (february-2018) - PULMONARY Hx Asthma: Yes - NEUROLOGICAL Hx Neurological Disorder: Yes - HEENT Hx HEENT Problems: Yes - RENAL Hx Chronic Kidney Disease: No - ENDOCRINE/METABOLIC Hx Endocrine Disorders: Yes - HEMATOLOGICAL/ONCOLOGICAL Hx Blood Disorders: No - INTEGUMENTARY Hx Dermatological Problems: No - MUSCULOSKELETAL/RHEUMATOLOGICAL Hx Arthritis: Yes (knees,shoulders) Hx Rheumatoid Arthritis: Yes - GASTROINTESTINAL Hx Gastrointestinal Disorders: No - GENITOURINARY/GYNECOLOGICAL Hx Genitourinary Disorders: No - PSYCHIATRIC Hx Anxiety: Yes Hx Depression: Yes - SURGICAL HISTORY Hx Coronary Artery Bypass Graft: No - ANESTHESIA Hx Anesthesia: Yes Hx Anesthesia Reactions: No Hx Malignant Hyperthermia: No Meds Allergies/Adverse Reactions: Allergies Allergy/AdvReac Type Severity Reaction Status Date / Time penicillin G procaine Allergy RASH Verified 02/04/19 14:52 Penicillins Allergy RASH Verified 02/04/19 14:52 Sulfa (Sulfonamide Allergy RASH Verified 02/04/19 14:52 Antibiotics) Physical Exam - Constitutional Appears: No Acute Distress, Other (on 2L NC ) - Head Exam Head Exam: NORMAL INSPECTION - Eye Exam Eye Exam: EOMI - ENT Exam ENT Exam: Mucous Membranes Moist - Respiratory Exam Respiratory Exam: Clear to Auscultation Bilateral, Rhonchi, Wheezes (faint wheezing ), NORMAL BREATHING PATTERN. absent: Rales - Cardiovascular Exam Cardiovascular Exam: REGULAR RHYTHM, +S1, +S2 - GI/Abdominal Exam GI & Abdominal Exam: Distended (obese ), Normal Bowel Sounds, Soft, Tenderness (mild epigastric ). absent: Firm, Guarding, Rigid - Extremities Exam Extremities exam: Positive for: pedal edema (up to the mid-steiner ). Negative for: calf tenderness - Neurological Exam Neurological exam: Alert, Oriented x3 - Skin Skin Exam: Pallor Results - Vital Signs Recent Vital Signs: Last Vital Signs Temp 98.2 F 02/04/19 16:33 Pulse 66 02/04/19 17:00 Resp 18 02/04/19 17:00 BP 121/47 L 02/04/19 17:00 Pulse Ox 100 02/04/19 18:30 - Labs Result Diagrams: 02/04/19 16:16 02/04/19 16:16 Labs: Laboratory Results - last 24 hr 02/04/19 02/04/19 16:16 16:16 WBC 7.0 RBC 3.58 L Hgb 8.5 L Hct 27.2 L MCV 76.1 L D MCH 23.7 L MCHC 31.1 L RDW 17.5 H Plt Count 370 MPV 7.7 Neut % (Auto) 72.6 Lymph % (Auto) 13.0 L [place] % (Auto) 11.6 H Eos % (Auto) 2.1 Baso % (Auto) 0.7 Neut # (Auto) 5.1 Lymph # (Auto) 0.9 L [place] # (Auto) 0.8 Eos # (Auto) 0.1 Baso # (Auto) 0.0 Sodium 139 Potassium 4.2 Chloride 102 Carbon Dioxide 27 Anion Gap 14 BUN 14 Creatinine 1.0 Est GFR ( Amer) > 60 Est GFR (Non-Af Amer) 55 Random Glucose 100 Calcium 9.0 Total Bilirubin 0.5 AST 30 ALT 20 Alkaline Phosphatase 92 Troponin I < 0.0120 NT-Pro-B Natriuret Pep 2070 H Total Protein 7.1 Albumin 4.0 Globulin 3.1 Albumin/Globulin Ratio 1.3 Assessment & Plan - Assessment and Plan (Free Text) Assessment: Assessment/Plan: 73 YO Female with PMHx of DM2, HTN, AFib and chronic back pain is admitted for dyspnea, chest pain, anemia. Chest pain/dyspnea -likely 2/2 to acute on chronic CHF, vs cardiac ischemic changes -elevated pro-BNP -CXR no acute pathology appreciated -trop x 1 neg, follow up trops -on monitor no acute changes appreciated; rate controlled paced -pending EKG -Echo 12/2018; EF 55-60% -cardiology consulted, follow up recs Microcytic Anemia -acute on chronic -order to transfuse 2 units of PRBC -iron studies ordered, follow up -FOBT ordered, pending -Xeralto on hold for now given GI bleed -GI consulted for likely LGI bleed, follow up recs HTN/A fib -chronic, controlled, paced -Xeralto on hold -c/w home meds NIDDM -HbA1c 7.6 (2015) -c.w home meds -low insulin sliding scale, hypoglycemia protocol DVT prolx -SCDs for now given LGI bleed <William Vogel D - Last Filed: 02/05/19 10:40> Results - Vital Signs Recent Vital Signs: Last Vital Signs Temp 97.5 F L 02/05/19 08:02 Pulse 60 02/05/19 08:39 Resp 20 02/05/19 08:02 BP 124/66 02/05/19 08:42 Pulse Ox 100 02/05/19 08:02 - Labs Result Diagrams: 02/05/19 05:35 02/05/19 05:35 Labs: Laboratory Results - last 24 hr 02/04/19 02/04/19 02/04/19 14:30 16:16 16:16 WBC 7.0 RBC 3.58 L Hgb 8.5 L Hct 27.2 L MCV 76.1 L D MCH 23.7 L MCHC 31.1 L RDW 17.5 H Plt Count 370 MPV 7.7 Neut % (Auto) 72.6 Lymph % (Auto) 13.0 L [place] % (Auto) 11.6 H Eos % (Auto) 2.1 Baso % (Auto) 0.7 Neut # (Auto) 5.1 Lymph # (Auto) 0.9 L [place] # (Auto) 0.8 Eos # (Auto) 0.1 Baso # (Auto) 0.0 PT INR APTT Sodium 139 Potassium 4.2 Chloride 102 Carbon Dioxide 27 Anion Gap 14 BUN 14 Creatinine 1.0 Est GFR ( Amer) > 60 Est GFR (Non-Af Amer) 55 POC Glucose (mg/dL) Random Glucose 100 Calcium 9.0 Iron TIBC % Saturation Ferritin Total Bilirubin 0.5 AST 30 ALT 20 Alkaline Phosphatase 92 Troponin I < 0.0120 NT-Pro-B Natriuret Pep 2070 H Total Protein 7.1 Albumin 4.0 Globulin 3.1 Albumin/Globulin Ratio 1.3 Stool Occult Blood Positive H Blood Type Blood Type Confirm Antibody Screen Crossmatch BBK History Checked 02/04/19 02/04/19 02/04/19 19:00 19:20 21:20 WBC RBC Hgb Hct MCV MCH MCHC RDW Plt Count MPV Neut % (Auto) Lymph % (Auto) [place] % (Auto) Eos % (Auto) Baso % (Auto) Neut # (Auto) Lymph # (Auto) [place] # (Auto) Eos # (Auto) Baso # (Auto) PT 20.3 H INR 1.8 APTT 44.0 H Sodium Potassium Chloride Carbon Dioxide Anion Gap BUN Creatinine Est GFR ( Amer) Est GFR (Non-Af Amer) POC Glucose (mg/dL) Random Glucose Calcium Iron TIBC % Saturation Ferritin Total Bilirubin AST ALT Alkaline Phosphatase Troponin I NT-Pro-B Natriuret Pep Total Protein Albumin Globulin Albumin/Globulin Ratio Stool Occult Blood Blood Type O POSITIVE Blood Type Confirm O POSITIVE Antibody Screen Negative Crossmatch See Detail BBK History Checked No verified bt 02/04/19 02/05/19 02/05/19 21:35 00:02 00:02 WBC RBC Hgb Hct MCV MCH MCHC RDW Plt Count MPV Neut % (Auto) Lymph % (Auto) [place] % (Auto) Eos % (Auto) Baso % (Auto) Neut # (Auto) Lymph # (Auto) [place] # (Auto) Eos # (Auto) Baso # (Auto) PT INR APTT Sodium Potassium Chloride Carbon Dioxide Anion Gap BUN Creatinine Est GFR ( Amer) Est GFR (Non-Af Amer) POC Glucose (mg/dL) 138 H Random Glucose Calcium Iron TIBC % Saturation Ferritin 10.8 L Total Bilirubin AST ALT Alkaline Phosphatase Troponin I 0.0120 NT-Pro-B Natriuret Pep Total Protein Albumin Globulin Albumin/Globulin Ratio Stool Occult Blood Blood Type Blood Type Confirm Antibody Screen Crossmatch BBK History Checked 02/05/19 02/05/19 02/05/19 00:02 05:35 05:35 WBC 5.1 RBC 3.54 L Hgb 8.5 L Hct 26.7 L MCV 75.4 L MCH 24.0 L MCHC 31.8 L RDW 17.8 H Plt Count 331 MPV 7.5 Neut % (Auto) 69.7 Lymph % (Auto) 14.6 L [place] % (Auto) 11.9 H Eos % (Auto) 3.2 Baso % (Auto) 0.6 Neut # (Auto) 3.6 Lymph # (Auto) 0.7 L [place] # (Auto) 0.6 Eos # (Auto) 0.2 Baso # (Auto) 0.0 PT INR APTT Sodium 139 Potassium 3.7 Chloride 101 Carbon Dioxide 33 H Anion Gap 9 L BUN 14 Creatinine 1.0 Est GFR ( Amer) > 60 Est GFR (Non-Af Amer) 55 POC Glucose (mg/dL) Random Glucose 112 H Calcium 8.8 Iron 31 L TIBC 428 % Saturation 7 L Ferritin Total Bilirubin AST ALT Alkaline Phosphatase Troponin I NT-Pro-B Natriuret Pep Total Protein Albumin Globulin Albumin/Globulin Ratio Stool Occult Blood Blood Type Blood Type Confirm Antibody Screen Crossmatch BBK History Checked 02/05/19 02/05/19 05:35 06:51 WBC RBC Hgb Hct MCV MCH MCHC RDW Plt Count MPV Neut % (Auto) Lymph % (Auto) [place] % (Auto) Eos % (Auto) Baso % (Auto) Neut # (Auto) Lymph # (Auto) [place] # (Auto) Eos # (Auto) Baso # (Auto) PT INR APTT Sodium Potassium Chloride Carbon Dioxide Anion Gap BUN Creatinine Est GFR ( Amer) Est GFR (Non-Af Amer) POC Glucose (mg/dL) 126 H Random Glucose Calcium Iron TIBC % Saturation Ferritin Total Bilirubin AST ALT Alkaline Phosphatase Troponin I < 0.0120 NT-Pro-B Natriuret Pep Total Protein Albumin Globulin Albumin/Globulin Ratio Stool Occult Blood Blood Type Blood Type Confirm Antibody Screen Crossmatch BBK History Checked Attending/Attestation - Attestation I have personally seen and examined this patient.: Yes I have fully participated in the care of the patient.: Yes I have reviewed all pertinent clinical information: Yes Notes (Text): 02/05/19 10:39 Patient seen and examined with resident. Case discussed and agreed qwith assessment and plan of management.
[2019-02-04 19:41] LABS: INR 1.8; PROTHROMBIN TIME 20.3 Seconds (9.8-13.1)
[2019-02-04] MEDS ORDERED: Albuterol HFA 90 mcg/actuation (8 g) IH PRN (19:50)
[2019-02-04] MEDS ORDERED: Albuterol-Ipratrop 3 mg / 0.5 (3 ml) UD INH PRN (19:50)
[2019-02-04] MEDS ORDERED: Glucagon Recombinant 1 mg Inj IM PRN (19:54)
[2019-02-04] MEDS ORDERED: Dextrose 50% SYRINGE Inj (50 ml) IV PRN (19:54)
[2019-02-04] MEDS: Insulin Regular 100 units/ml SC SCH (23:38)
[2019-02-05 00:18] LABS: IRON 31 ug/dL (37-170)
[2019-02-05 00:27] LABS: % IRON SATURATION 7 % (20-55); TOTAL IRON BINDING CAPACITY 428 ug/dL (250-450)
[2019-02-05 04:53] VITALS: O2SAT 100
[2019-02-05 06:33] LABS: BASO % 0.6 % (0.0-2.0); EOS # 0.2 K/uL (0.0-0.7); EOS % 3.2 % (0.0-4.0); HEMOGLOBIN 8.5 g/dL (12.0-16.0); LYMPH # 0.7 K/uL (1.0-4.3); LYMPH % 14.6 % (20.0-40.0); MEAN CELL VOLUME 75.4 fl (81.0-99.0); MEAN CORPUSCULAR HGB CONC 31.8 g/dL (33.0-37.0); MEAN PLATELET VOLUME 7.5 fl (7.2-11.7); MONO # 0.6 K/uL (0.0-0.8); MONO % 11.9 % (0.0-10.0); NEUT # 3.6 K/uL (1.8-7.0); NEUT % 69.7 % (50.0-75.0); NRBC % 0.4 % (0.0-0.0); RBC 3.54 Mil/uL (3.80-5.20); RED CELL DISTRIBUTION WIDTH 17.8 % (11.5-14.5); WHITE BLOOD COUNT 5.1 K/uL (4.8-10.8)
[2019-02-05 06:47] LABS: BLOOD UREA NITROGEN 14 mg/dl (7-17); CALCIUM 8.8 mg/dL (8.4-10.2); GFR NON-AFRICAN AMERICAN 55
[2019-02-05] MEDS ORDERED: Omega-3-Acid Ethyl Esters 1 GM Cap PO SCH (08:00)
[2019-02-05 08:37] VITALS: PULSE 60
[2019-02-05] MEDS: Insulin Regular 100 units/ml SC SCH ×2 (08:42→13:14)
--- NOTE | 2019-02-05 08:42 | CP.PCM.PN ---
Subjective - Date & Time of Evaluation Date of Evaluation: 02/05/19 Time of Evaluation: 08:41 - Subjective Subjective: Patient seen and examined at bedside. Reports 10/10 chronic back pain. Denies any other complaint. Denies dizziness, chest pain, or shortness of breath. No acute events overnight. Objective - Vital Signs/Intake and Output Vital Signs (last 24 hours): Temp Pulse Resp BP Pulse Ox 97.5 F L 60 20 124/66 100 02/05/19 08:02 02/05/19 08:39 02/05/19 08:02 02/05/19 08:39 02/05/19 08:02 Intake and Output: 02/05/19 02/05/19 06:59 18:59 Intake Total 278 Balance 278 - Medications Medications: Current Medications Albuterol (Ventolin Hfa 90 Mcg/Actuation (8 G)) 2 puff IH Q4 PRN PRN Reason: Shortness of Breath Albuterol/Ipratropium (Duoneb 3 Mg/0.5 Mg (3 Ml) Ud) 3 ml INH RQ4 PRN PRN Reason: Shortness of Breath Ascorbic Acid (Vitamin C 500 Mg Tab) 500 mg PO DAILY [facility] Dextrose (Dextrose 50% Inj) 0 ml IV STAT PRN; Protocol PRN Reason: Hypoglycemia Protocol Dextrose (Glutose 15) 0 gm PO ONCE PRN; Protocol PRN Reason: Hypoglycemia Protocol Digoxin (Digoxin) 0.125 mg PO DAILY [facility] Last Admin: 02/05/19 08:37 Dose: 0.125 mg Docusate Sodium (Colace) 100 mg PO BID [facility] Escitalopram Oxalate (Lexapro) 10 mg PO DAILY [facility] Last Admin: 02/05/19 08:40 Dose: 10 mg Ferrous Sulfate (Feosol) 325 mg PO BID [facility] Furosemide (Lasix) 20 mg IVP Q12 [facility] Last Admin: 02/04/19 23:34 Dose: 20 mg Gabapentin (Neurontin) 800 mg PO HS [facility] Last Admin: 02/04/19 23:36 Dose: 800 mg Glucagon (Glucagen Diagnostic Kit) 0 mg IM STAT PRN; Protocol PRN Reason: Hypoglycemia Protocol Iron Sucrose 100 mg/ Sodium (Chloride) 105 mls @ 105 mls/hr IVPB DAILY [facility] Insulin Human Regular (Humulin R) 0 units SC ACHS [facility]; Protocol Last Admin: 02/04/19 23:38 Dose: Not Given Metformin HCl (Glucophage) 500 mg PO BIDWM [facility] Last Admin: 02/05/19 08:39 Dose: 500 mg Metoprolol Succinate (Toprol Xl) 50 mg PO DAILY [facility] Last Admin: 02/05/19 08:39 Dose: 50 mg Mirtazapine (Remeron) 7.5 mg PO HS PRN PRN Reason: Insomnia Montelukast Sodium (Singulair) 10 mg PO HS [facility] Last Admin: 02/04/19 23:35 Dose: 10 mg [id number] Ethyl Esters (Lovaza) 1 gm PO BIDWM [facility] Last Admin: 02/05/19 08:39 Dose: 1 gm Pantoprazole Sodium (Protonix Ec Tab) 40 mg PO DAILY [facility] Last Admin: 02/05/19 08:38 Dose: 40 mg Sitagliptin Phosphate (Januvia) 100 mg PO DAILY [facility] Last Admin: 02/05/19 08:38 Dose: 100 mg - Labs Labs: 02/05/19 05:35 02/05/19 05:35 PT 20.3 Seconds (9.8-13.1) H 02/04/19 19:00 INR 1.8 02/04/19 19:00 APTT 44.0 Seconds (25.6-37.1) H 02/04/19 19:00 - Constitutional Appears: No Acute Distress, Younger Than Stated Age - Eye Exam Eye Exam: Normal appearance - ENT Exam ENT Exam: Mucous Membranes Moist - Neck Exam Neck Exam: Normal Inspection - Respiratory Exam Respiratory Exam: Clear to Ausculation Bilateral, NORMAL BREATHING PATTERN. absent: Accessory Muscle Use, Chest Wall Tenderness, Decreased Breath Sounds, Prolonged Expiratory Phase, Rales, Rhonchi, Wheezes, Respiratory Distress, Stridor - Cardiovascular Exam Cardiovascular Exam: +S1, +S2 - GI/Abdominal Exam GI & Abdominal Exam: Soft, Normal Bowel Sounds. absent: Distended, Firm, Guarding, Rigid, Rebound - Back Exam Back Exam: NORMAL INSPECTION - Neurological Exam Neurological Exam: Alert, Awake, Oriented x3 - Psychiatric Exam Psychiatric exam: Normal Affect - Skin Skin Exam: Dry, Intact, Pallor, Warm Assessment and Plan - Assessment and Plan (Free Text) Assessment: 73 yo Female with history of DM2, HTN, AFib and chronic back pain is admitted for dyspnea, chest pain, anemia. Plan: Chest pain/dyspnea -likely 2/2 to acute on chronic CHF, vs cardiac ischemic changes -elevated pro-BNP: -CXR no acute pathology appreciated -trop x 3 neg -on monitor no acute changes appreciated; rate controlled paced -EKG : ventricular paced rhythm -Echo 12/2018; EF 55-60% -cardiology consulted- cardiac cath when patient is medically stable Iron deficiency anemia -acute on chronic - secondary to possible lower GI bleed. -order to transfuse 2 units of PRBC -iron studies : Fe low, TIBC normal and % saturation low - iron deficiency anemia -FOBT ordered: positive -Xeralto on hold for now given GI bleed -GI consulted for likely LGI bleed, follow up recs HTN/A fib -chronic, controlled, paced -Xeralto on hold -c/w home meds Chronic low back pain, narcotic dependent - Takes Oxycodone 30mg at home - At this time, oxycodone 10mg Q12H prn pain NIDDM -HbA1c 7.6 (2015) -c.w home meds -low insulin sliding scale, hypoglycemia protocol DVT prolx -SCDs for now given LGI bleed
[2019-02-05] MEDS ORDERED: Pantoprazole 40 mg EC Tab PO SCH (09:00)
[2019-02-05] MEDS ORDERED: Digoxin 125 mcg (0.125 mg) Tab PO SCH (09:00)
[2019-02-05] MEDS ORDERED: Metoprolol Succinate 50 mg XL Tab PO SCH (09:00)
[2019-02-05] MEDS ORDERED: oxyCODONE 10 mg Immediate Release Tab PO PRN (10:09)
--- NOTE | 2019-02-05 11:24 | CP.PCM.CON ---
History of Present Illness - History of Present Illness History of Present Illness: THE PATIENT IS A 73 YEAR OLD FEMALE WHO HAS A PMH INCLUDING SSS WITH ATRIAL FIBRILLATION AND A VVI PACEMAKER, HYPERTENSION, HYPERLIPIDEMIA, CHRONIC IRON DEFICIENCY ANEMIA, DM, AND SHE IS OVERWEIGHT AND DECONDITIONED. SHE STATES THAT SHE HAS BEEN VERY SOB ON EVEN MINIMAL EXERTION FOR SEVERAL MONTHS AND IS ALWAYS TIRED AND FALLING ASLEEP IN HER CHAIR. SHE HAS HAD MILD CHEST PRESSURE OVER THE PAST FEW MONTHS THAT SHE THOUGHT WAS FROM CHEST WALL TENDERNESS AND CHEST DISCOMFORT AT HER PACEMAKER POCKET SITE. SHE HAD A RECENT PHARMACOLOGICAL STRESS TEST DONE BY DR GUERRA AND IT WAS ABNORMAL AND SHE WAS SCHEDULED TO HAVE A CARDIAC CATH THIS WEEK BUT IT WAS CANCELLED DUE TO ANEMIA ON HER PAT LABS. SHE ALSO STATES SHE HAS HAD BLACK STOOLS FOR THE PAST MONTH AND SAW DR TYLER YESTERDAY WHO ADVISED HER TO BE ADMIITED TO THE HOSPITAL. I WAS ASKED TO SEE HER ON CARDIOLOGY CONSULTATION. Past Patient History - Infectious Disease Hx of Infectious Diseases: None - Tetanus Immunizations Tetanus Immunization: Unknown - Past Medical History & Family History Past Medical History?: Yes - Past Social History Smoking Status: Former Smoker - CARDIAC Hx Atrial Fibrillation: Yes Hx Cardia Arrhythmia: Yes Hx Congestive Heart Failure: Yes Hx Hypercholesterolemia: Yes Hx Hypertension: Yes Hx Pacemaker: Yes (february-2018) - PULMONARY Hx Asthma: Yes - NEUROLOGICAL Hx Neurological Disorder: Yes - HEENT Hx HEENT Problems: Yes - RENAL Hx Chronic Kidney Disease: No - ENDOCRINE/METABOLIC Hx Endocrine Disorders: Yes - HEMATOLOGICAL/ONCOLOGICAL Hx Blood Disorders: No - INTEGUMENTARY Hx Dermatological Problems: No - MUSCULOSKELETAL/RHEUMATOLOGICAL Hx Arthritis: Yes (knees,shoulders) Hx Falls: Yes Hx Rheumatoid Arthritis: Yes - GASTROINTESTINAL Hx Gastrointestinal Disorders: No - GENITOURINARY/GYNECOLOGICAL Hx Genitourinary Disorders: No - PSYCHIATRIC Hx Anxiety: Yes Hx Depression: Yes - SURGICAL HISTORY Hx Coronary Artery Bypass Graft: No - ANESTHESIA Hx Anesthesia: Yes Hx Anesthesia Reactions: No Hx Malignant Hyperthermia: No Meds Allergies/Adverse Reactions: Allergies Allergy/AdvReac Type Severity Reaction Status Date / Time penicillin G procaine Allergy RASH Verified 02/04/19 14:52 Penicillins Allergy RASH Verified 02/04/19 14:52 Sulfa (Sulfonamide Allergy RASH Verified 02/04/19 14:52 Antibiotics) - Medications Medications: Current Medications Albuterol (Ventolin Hfa 90 Mcg/Actuation (8 G)) 2 puff IH Q4 PRN PRN Reason: Shortness of Breath Albuterol/Ipratropium (Duoneb 3 Mg/0.5 Mg (3 Ml) Ud) 3 ml INH RQ4 PRN PRN Reason: Shortness of Breath Ascorbic Acid (Vitamin C 500 Mg Tab) [address] [facility] Dextrose (Dextrose 50% Inj) 0 ml IV STAT PRN; Protocol PRN Reason: Hypoglycemia Protocol Dextrose (Glutose 15) 0 gm PO ONCE PRN; Protocol PRN Reason: Hypoglycemia Protocol Digoxin (Digoxin) 0.[address] [facility] Last Admin: 02/05/19 08:37 Dose: 0.125 mg Docusate Sodium (Colace) [address] [facility] Last Admin: 02/05/19 09:00 Dose: 100 mg Escitalopram Oxalate (Lexapro) [address] [facility] Last Admin: 02/05/19 08:40 Dose: 10 mg Ferrous Sulfate (Feosol) [address] [facility] Last Admin: 02/05/19 09:01 Dose: 325 mg Furosemide (Lasix) [address] [facility] Last Admin: 02/05/19 08:42 Dose: 20 mg Gabapentin (Neurontin) [address] [facility] Last Admin: 02/04/19 23:36 Dose: 800 mg Glucagon (Glucagen Diagnostic Kit) 0 mg IM STAT PRN; Protocol PRN Reason: Hypoglycemia Protocol Iron Sucrose 100 mg/ Sodium (Chloride) 105 mls @ 105 mls/hr IVPB DAILY [facility] Insulin Human Regular (Humulin R) [address] [facility]; Protocol Last Admin: 02/05/19 08:42 Dose: Not Given Metformin HCl (Glucophage) [address] [facility] Last Admin: 02/05/19 08:39 Dose: 500 mg Metoprolol Succinate (Toprol Xl) [address] [facility] Last Admin: 02/05/19 08:39 Dose: 50 mg Mirtazapine (Remeron) 7.5 mg PO HS PRN PRN Reason: Insomnia Montelukast Sodium (Singulair) [address] [facility] Last Admin: 02/04/19 23:35 Dose: 10 mg [id number] Ethyl Esters (Lovaza) [address] [facility] Last Admin: 02/05/19 08:39 Dose: 1 gm Oxycodone HCl (Oxycodone Immediate Release Tab) 10 mg PO Q6 PRN PRN Reason: Pain, severe (8-10) Pantoprazole Sodium (Protonix Ec Tab) [address] [facility] Last Admin: 02/05/19 08:38 Dose: 40 mg Sitagliptin Phosphate (Januvia) [address] [facility] Last Admin: 02/05/19 08:38 Dose: 100 mg Physical Exam - Respiratory Exam Respiratory Exam: Clear to Auscultation Bilateral - Cardiovascular Exam Cardiovascular Exam: REGULAR RHYTHM, +S1, +S2 - Extremities Exam Extremities exam: Positive for: pedal edema - Additional Findings Additional findings: EKG VVI PACING, R 60 TROPONIN NORMAL X 3 H/H 05/04 ECHO 12/22/18 WITH LVEF OF 55-60% Results - Vital Signs Recent Vital Signs: Last Vital Signs Temp 97.7 F 02/05/19 10:54 Pulse 60 02/05/19 10:54 Resp 19 02/05/19 10:54 BP 136/74 02/05/19 10:54 Pulse Ox 100 02/05/19 08:02 - Labs Result Diagrams: 02/05/19 05:35 02/05/19 05:35 Labs: Laboratory Results - last 24 hr 02/04/19 02/04/19 02/04/19 14:30 16:16 16:16 WBC 7.0 RBC 3.58 L Hgb 8.5 L Hct 27.2 L MCV 76.1 L D MCH 23.7 L MCHC 31.1 L RDW 17.5 H Plt Count 370 MPV 7.7 Neut % (Auto) 72.6 Lymph % (Auto) 13.0 L [place] % (Auto) 11.6 H Eos % (Auto) 2.1 Baso % (Auto) 0.7 Neut # (Auto) 5.1 Lymph # (Auto) 0.9 L [place] # (Auto) 0.8 Eos # (Auto) 0.1 Baso # (Auto) 0.0 PT INR APTT Sodium 139 Potassium 4.2 Chloride 102 Carbon Dioxide 27 Anion Gap 14 BUN 14 Creatinine 1.0 Est GFR ( Amer) > 60 Est GFR (Non-Af Amer) 55 POC Glucose (mg/dL) Random Glucose 100 Calcium 9.0 Iron TIBC % Saturation Ferritin Total Bilirubin 0.5 AST 30 ALT 20 Alkaline Phosphatase 92 Troponin I < 0.0120 NT-Pro-B Natriuret Pep 2070 H Total Protein 7.1 Albumin 4.0 Globulin 3.1 Albumin/Globulin Ratio 1.3 Stool Occult Blood Positive H Blood Type Blood Type Confirm Antibody Screen Crossmatch BBK History Checked 02/04/19 02/04/19 02/04/19 19:00 19:20 21:20 WBC RBC Hgb Hct MCV MCH MCHC RDW Plt Count MPV Neut % (Auto) Lymph % (Auto) [place] % (Auto) Eos % (Auto) Baso % (Auto) Neut # (Auto) Lymph # (Auto) [place] # (Auto) Eos # (Auto) Baso # (Auto) PT 20.3 H INR 1.8 APTT 44.0 H Sodium Potassium Chloride Carbon Dioxide Anion Gap BUN Creatinine Est GFR ( Amer) Est GFR (Non-Af Amer) POC Glucose (mg/dL) Random Glucose Calcium Iron TIBC % Saturation Ferritin Total Bilirubin AST ALT Alkaline Phosphatase Troponin I NT-Pro-B Natriuret Pep Total Protein Albumin Globulin Albumin/Globulin Ratio Stool Occult Blood Blood Type O POSITIVE Blood Type Confirm O POSITIVE Antibody Screen Negative Crossmatch See Detail BBK History Checked No verified bt 02/04/19 02/05/19 02/05/19 21:35 00:02 00:02 WBC RBC Hgb Hct MCV MCH MCHC RDW Plt Count MPV Neut % (Auto) Lymph % (Auto) [place] % (Auto) Eos % (Auto) Baso % (Auto) Neut # (Auto) Lymph # (Auto) [place] # (Auto) Eos # (Auto) Baso # (Auto) PT INR APTT Sodium Potassium Chloride Carbon Dioxide Anion Gap BUN Creatinine Est GFR ( Amer) Est GFR (Non-Af Amer) POC Glucose (mg/dL) 138 H Random Glucose Calcium Iron TIBC % Saturation Ferritin 10.8 L Total Bilirubin AST ALT Alkaline Phosphatase Troponin I 0.0120 NT-Pro-B Natriuret Pep Total Protein Albumin Globulin Albumin/Globulin Ratio Stool Occult Blood Blood Type Blood Type Confirm Antibody Screen Crossmatch BBK History Checked 02/05/19 02/05/19 02/05/19 00:02 05:35 05:35 WBC 5.1 RBC 3.54 L Hgb 8.5 L Hct 26.7 L MCV 75.4 L MCH 24.0 L MCHC 31.8 L RDW 17.8 H Plt Count 331 MPV 7.5 Neut % (Auto) 69.7 Lymph % (Auto) 14.6 L [place] % (Auto) 11.9 H Eos % (Auto) 3.2 Baso % (Auto) 0.6 Neut # (Auto) 3.6 Lymph # (Auto) 0.7 L [place] # (Auto) 0.6 Eos # (Auto) 0.2 Baso # (Auto) 0.0 PT INR APTT Sodium 139 Potassium 3.7 Chloride 101 Carbon Dioxide 33 H Anion Gap 9 L BUN 14 Creatinine 1.0 Est GFR ( Amer) > 60 Est GFR (Non-Af Amer) 55 POC Glucose (mg/dL) Random Glucose 112 H Calcium 8.8 Iron 31 L TIBC 428 % Saturation 7 L Ferritin Total Bilirubin AST ALT Alkaline Phosphatase Troponin I NT-Pro-B Natriuret Pep Total Protein Albumin Globulin Albumin/Globulin Ratio Stool Occult Blood Blood Type Blood Type Confirm Antibody Screen Crossmatch BBK History Checked 02/05/19 02/05/19 02/05/19 05:35 06:51 10:46 WBC RBC Hgb Hct MCV MCH MCHC RDW Plt Count MPV Neut % (Auto) Lymph % (Auto) [place] % (Auto) Eos % (Auto) Baso % (Auto) Neut # (Auto) Lymph # (Auto) [place] # (Auto) Eos # (Auto) Baso # (Auto) PT INR APTT Sodium Potassium Chloride Carbon Dioxide Anion Gap BUN Creatinine Est GFR ( Amer) Est GFR (Non-Af Amer) POC Glucose (mg/dL) 126 H 230 H Random Glucose Calcium Iron TIBC % Saturation Ferritin Total Bilirubin AST ALT Alkaline Phosphatase Troponin I < 0.0120 NT-Pro-B Natriuret Pep Total Protein Albumin Globulin Albumin/Globulin Ratio Stool Occult Blood Blood Type Blood Type Confirm Antibody Screen Crossmatch BBK History Checked Assessment & Plan - Assessment and Plan (Free Text) Assessment: CHEST PAIN WITH AN RECENT ABNORMAL PHARMACOLOGICAL STRESS TEST SSS WITH ATRIAL FIBRILLATION AND VVI PACEMAKER HYPERLIPIDEMIA GI BLEED WITH BLACK STOOLS HYPERTENSION DM Plan: THE PATIENT WAS ADMITTED TO ON TELEMETRY O2, METOPROLOL, FUROSEMIDE, DIGOXIN, ATORVASTATIN, OMEGA 3, DM MEDICATIONS, FEOSOL XARELTO WAS HELD DUE TO THE GI BLEED AND A GI CONSULT WAS ORDERED THE PATIENT WILL RECEIVE 2 U OF RBCS THE PATIENT WILL EVENTUALLY HAVE A CARDIAC CATH WHEN HER PRESENT MEDICAL PROBLEMS ARE STABALIZED
--- NOTE | 2019-02-05 12:42 | CARD ---
APPROVED REPORT Date of service: 02/04/2019 EKG Measurement Heart [id number] <Conclusion> Ventricular-paced rhythm Abnormal ECG
--- NOTE | 2019-02-05 14:55 | CP.PCM.DIS ---
<Mandy Hernandez - Last Filed: 02/05/19 16:12> Provider - Provider Date of Admission: 02/04/19 18:26 Attending physician: William Vogel MD Consults: 02/04/19 19:20 Cardiology Consult Routine Comment: Consulting Provider: Benjamín Butterfield Consulting Physician: Benjamín Butterfield Reason for Consult: CHF exacerbation Gastroenterology Consult Routine Comment: Consulting Provider: Reese Augustin Consulting Physician: Reese Augustin Reason for Consult: anemia r/o GI bleed Time Spent in preparation of Discharge (in minutes): 30 Diagnosis - Discharge Diagnosis (1) Iron deficiency anemia Status: Acute Comment: Secondary to lower GI blood. Hospital Course - Lab Results Lab Results: Most Recent Lab Values WBC 5.1 K/uL (4.8-10.8) 02/05/19 05:35 RBC 3.54 Mil/uL (3.80-5.20) L 02/05/19 05:35 Hgb 8.5 g/dL (12.0-16.0) L 02/05/19 05:35 Hct 26.7 % (34.0-47.0) L 02/05/19 05:35 MCV 75.4 fl (81.0-99.0) L 02/05/19 05:35 MCH 24.0 pg (27.0-31.0) L 02/05/19 05:35 MCHC 31.8 g/dL (33.0-37.0) L 02/05/19 05:35 RDW 17.8 % (11.5-14.5) H 02/05/19 05:35 Plt Count 331 K/uL (130-400) 02/05/19 05:35 MPV 7.5 fl (7.2-11.7) 02/05/19 05:35 Neut % (Auto) 69.7 % (50.0-75.0) 02/05/19 05:35 Lymph % (Auto) 14.6 % (20.0-40.0) L 02/05/19 05:35 [place] % (Auto) 11.9 % (0.0-10.0) H 02/05/19 05:35 Eos % (Auto) 3.2 % (0.0-4.0) 02/05/19 05:35 Baso % (Auto) 0.6 % (0.0-2.0) 02/05/19 05:35 Neut # (Auto) 3.6 K/uL (1.8-7.0) 02/05/19 05:35 Lymph # (Auto) 0.7 K/uL (1.0-4.3) L 02/05/19 05:35 [place] # (Auto) 0.6 K/uL (0.0-0.8) 02/05/19 05:35 Eos # (Auto) 0.2 K/uL (0.0-0.7) 02/05/19 05:35 Baso # (Auto) 0.0 K/uL (0.0-0.2) 02/05/19 05:35 PT 20.3 Seconds (9.8-13.1) H 02/04/19 19:00 INR 1.8 02/04/19 19:00 APTT 44.0 Seconds (25.6-37.1) H 02/04/19 19:00 Sodium 139 mmol/l (132-148) 02/05/19 05:35 Potassium 3.7 MMOL/L (3.6-5.0) 02/05/19 05:35 Chloride 101 mmol/L (98-107) 02/05/19 05:35 Carbon Dioxide 33 mmol/L (22-30) H 02/05/19 05:35 Anion Gap 9 (10-20) L 02/05/19 05:35 BUN 14 mg/dl (7-17) 02/05/19 05:35 Creatinine 1.0 mg/dl (0.7-1.2) 02/05/19 05:35 Est GFR ( Amer) > 60 02/05/19 05:35 Est GFR (Non-Af Amer) 55 02/05/19 05:35 POC Glucose (mg/dL) 230 mg/dL (65-110) H 02/05/19 10:46 Random Glucose 112 mg/dL (65-105) H 02/05/19 05:35 Hemoglobin A1c 7.2 % (4.2-6.5) H 02/05/19 05:35 Calcium 8.8 mg/dL (8.4-10.2) 02/05/19 05:35 Iron 31 ug/dL (37-170) L 02/05/19 00:02 TIBC 428 ug/dL (250-450) 02/05/19 00:02 % Saturation 7 % (20-55) L 02/05/19 00:02 Ferritin 10.8 ng/Ml (11.1-264.0) L 02/05/19 00:02 Total Bilirubin 0.5 mg/dl (0.2-1.3) 02/04/19 16:16 AST 30 U/L (14-36) 02/04/19 16:16 ALT 20 U/L (9-52) 02/04/19 16:16 Alkaline Phosphatase 92 U/L (38-126) 02/04/19 16:16 Troponin I < 0.0120 ng/mL (0.00-0.120) 02/05/19 05:35 NT-Pro-B Natriuret Pep 2070 pg/ml (0-900) H 02/04/19 16:16 Total Protein 7.1 G/DL (6.3-8.2) 02/04/19 16:16 Albumin 4.0 g/dL (3.5-5.0) 02/04/19 16:16 Globulin 3.1 gm/dL (2.2-3.9) 02/04/19 16:16 Albumin/Globulin Ratio 1.3 (1.0-2.1) 02/04/19 16:16 Stool Occult Blood Positive (NEGATIVE) H 02/04/19 14:30 Blood Type O POSITIVE 02/04/19 19:20 Blood Type Confirm O POSITIVE 02/04/19 21:20 Antibody Screen Negative 02/04/19 19:20 Crossmatch See Detail 02/04/19 19:20 BBK History Checked No verified bt 02/04/19 19:20 - Hospital Course Hospital Course: 73 yo Female with history of DM2, HTN, AFib and chronic back pain is admitted for dyspnea, chest pain, anemia. S/P 2 units of pRBC. CBC stable. No acute events during hospital stay. Cardiology was consulted and GI given lower GI bleed. Patient will follow up with both specialties as outpatient. Dr. Hatch cardiology - patient will follow. Xarelto decreased from 20mg to 15mg given recent lower GI bleed. Discharge Exam - Head Exam Head Exam: NORMAL INSPECTION - Eye Exam Eye Exam: Normal appearance - Respiratory Exam Respiratory Exam: Clear to PA & Lateral, NORMAL BREATHING PATTERN, UNREMARKABLE. absent: Accessory Muscle Use, Chest Wall Tenderness, Decreased Breath Sounds, Prolonged Expiratory Phase, Rales, Rhonchi, Wheezes, Respiratory Distress, Stridor - Cardiovascular Exam Cardiovascular Exam: +S1, +S2 - GI/Abdominal Exam GI & Abdominal Exam: Normal Bowel Sounds, Soft, Unremarkable. absent: Diminished Bowel Sounds, Distended, Firm, Guarding, Rebound, Rigid, Tenderness - Extremities Exam Extremities exam: normal capillary refill, normal inspection, pedal pulses present - Neurological Exam Neurological exam: Alert, Oriented x3 - Psychiatric Exam Psychiatric exam: Normal Affect, Normal Mood - Skin Skin Exam: Dry, Intact, Normal Color, Warm Discharge Plan - Discharge Medications Prescriptions: Ascorbic Acid [Vitamin C 500 mg Tab] 500 mg PO DAILY #30 tab Docusate [Colace] 100 mg PO BID #20 cap Ferrous Sulfate [Feosol] 325 mg PO BID #60 tab Rivaroxaban [Xarelto] 15 mg PO DAILY #30 tab - Follow Up Plan Condition: STABLE Disposition: HOME/ ROUTINE Patient education suggested?: Yes Instructions: Anemia Caused by Low Iron, Adult (DC) Additional Instructions: Dr. Hatch follow up within 1 week follow up with PMD follow up with Dr. Muller Referrals: Reese Augustin MD, PhD [Staff Provider] - Sawyer Hatch MD [Staff Provider] - <William Vogel - Last Filed: 02/05/19 17:25> Provider - Provider Date of Admission: 02/04/19 18:26 Attending physician: William Vogel MD Consults: 02/04/19 19:20 Cardiology Consult Routine Comment: Consulting Provider: Benjamín Butterfield Consulting Physician: Benjamín Butterfield Reason for Consult: CHF exacerbation Gastroenterology Consult Routine Comment: Consulting Provider: Reese Augustin Consulting Physician: Reese Augustin Reason for Consult: anemia r/o GI bleed Hospital Course - Lab Results Lab Results: Most Recent Lab Values WBC 5.1 K/uL (4.8-10.8) 02/05/19 05:35 RBC 3.54 Mil/uL (3.80-5.20) L 02/05/19 05:35 Hgb 8.5 g/dL (12.0-16.0) L 02/05/19 05:35 Hct 26.7 % (34.0-47.0) L 02/05/19 05:35 MCV 75.4 fl (81.0-99.0) L 02/05/19 05:35 MCH 24.0 pg (27.0-31.0) L 02/05/19 05:35 MCHC 31.8 g/dL (33.0-37.0) L 02/05/19 05:35 RDW 17.8 % (11.5-14.5) H 02/05/19 05:35 Plt Count 331 K/uL (130-400) 02/05/19 05:35 MPV 7.5 fl (7.2-11.7) 02/05/19 05:35 Neut % (Auto) 69.7 % (50.0-75.0) 02/05/19 05:35 Lymph % (Auto) 14.6 % (20.0-40.0) L 02/05/19 05:35 [place] % (Auto) 11.9 % (0.0-10.0) H 02/05/19 05:35 Eos % (Auto) 3.2 % (0.0-4.0) 02/05/19 05:35 Baso % (Auto) 0.6 % (0.0-2.0) 02/05/19 05:35 Neut # (Auto) 3.6 K/uL (1.8-7.0) 02/05/19 05:35 Lymph # (Auto) 0.7 K/uL (1.0-4.3) L 02/05/19 05:35 [place] # (Auto) 0.6 K/uL (0.0-0.8) 02/05/19 05:35 Eos # (Auto) 0.2 K/uL (0.0-0.7) 02/05/19 05:35 Baso # (Auto) 0.0 K/uL (0.0-0.2) 02/05/19 05:35 PT 20.3 Seconds (9.8-13.1) H 02/04/19 19:00 INR 1.8 02/04/19 19:00 APTT 44.0 Seconds (25.6-37.1) H 02/04/19 19:00 Sodium 139 mmol/l (132-148) 02/05/19 05:35 Potassium 3.7 MMOL/L (3.6-5.0) 02/05/19 05:35 Chloride 101 mmol/L (98-107) 02/05/19 05:35 Carbon Dioxide 33 mmol/L (22-30) H 02/05/19 05:35 Anion Gap 9 (10-20) L 02/05/19 05:35 BUN 14 mg/dl (7-17) 02/05/19 05:35 Creatinine 1.0 mg/dl (0.7-1.2) 02/05/19 05:35 Est GFR ( Amer) > 60 02/05/19 05:35 Est GFR (Non-Af Amer) 55 02/05/19 05:35 POC Glucose (mg/dL) 153 mg/dL (65-110) H 02/05/19 15:51 Random Glucose 112 mg/dL (65-105) H 02/05/19 05:35 Hemoglobin A1c 7.2 % (4.2-6.5) H 02/05/19 05:35 Calcium 8.8 mg/dL (8.4-10.2) 02/05/19 05:35 Iron 31 ug/dL (37-170) L 02/05/19 00:02 TIBC 428 ug/dL (250-450) 02/05/19 00:02 % Saturation 7 % (20-55) L 02/05/19 00:02 Ferritin 10.8 ng/Ml (11.1-264.0) L 02/05/19 00:02 Total Bilirubin 0.5 mg/dl (0.2-1.3) 02/04/19 16:16 AST 30 U/L (14-36) 02/04/19 16:16 ALT 20 U/L (9-52) 02/04/19 16:16 Alkaline Phosphatase 92 U/L (38-126) 02/04/19 16:16 Troponin I < 0.0120 ng/mL (0.00-0.120) 02/05/19 05:35 NT-Pro-B Natriuret Pep 2070 pg/ml (0-900) H 02/04/19 16:16 Total Protein 7.1 G/DL (6.3-8.2) 02/04/19 16:16 Albumin 4.0 g/dL (3.5-5.0) 02/04/19 16:16 Globulin 3.1 gm/dL (2.2-3.9) 02/04/19 16:16 Albumin/Globulin Ratio 1.3 (1.0-2.1) 02/04/19 16:16 Stool Occult Blood Positive (NEGATIVE) H 02/04/19 14:30 Blood Type O POSITIVE 02/04/19 19:20 Blood Type Confirm O POSITIVE 02/04/19 21:20 Antibody Screen Negative 02/04/19 19:20 Crossmatch See Detail 02/04/19 19:20 BBK History Checked No verified bt 02/04/19 19:20 Attending/Attestation - Attestation I have personally seen and examined this patient.: Yes I have fully participated in the care of the patient.: Yes I have reviewed all pertinent clinical information, including history, physical exam and plan: Yes Notes (Text): 02/05/19 17:24 Patient seen and examined with resident. Case discussed and agreed with assessment. Patient discharged in stable condition.
[2019-02-05 16:10] VITALS: BP 116/69; PULSE 64; RESP 18; TEMP 97.8
--- NOTE | 2019-02-06 01:53 | CON ---
DATE: 02/05/2019 REFERRED BY: REASON FOR CONSULTATION: Abdominal pain. HISTORY OF PRESENT ILLNESS: This is a 73-year-old female with history of diabetes, hypertension, atrial fibrillation, chronic back pain as well, comes in for shortness of breath and dyspnea. She had some dark stool but otherwise no black stool, lying in bed comfortably at this point, in no apparent distress. PAST MEDICAL HISTORY: As above. PAST SURGICAL HISTORY: As above. MEDICATIONS: Reviewed. REVIEW OF SYSTEMS: All other systems have been reviewed and negative apart from the HPI. PHYSICAL EXAMINATION: VITAL SIGNS: Here in the hospital are grossly unremarkable. GENERAL: This is a well-nourished, pleasant elderly-appearing female, lying in bed comfortable, in no apparent distress. HEENT: Head: Normocephalic and atraumatic. Eyes: Pupils are equally reactive to light bilaterally. No conjunctival pallor or icterus. NECK: Supple. Normal range of motion. No lymphadenopathy appreciated. LUNGS: Coarse breath sounds bilaterally. HEART: S1 and S2. Regular rate and rhythm. No murmurs appreciated. ABDOMEN: Soft and nontender. Bowel sounds present. No rebound. No guarding. RECTAL: Deferred. EXTREMITIES: Pulses felt bilaterally. SKIN: Warm, dry, and intact. NEUROLOGIC: A and O x3. LABORATORY DATA: Labs and radiology have been reviewed. WBC is 5.1, hemoglobin 8.5 is stable. Hematocrit is stable as well. Platelet count is normal. ASSESSMENT: This is a 73-year-old female with occult blood positive, anemia. The patient will need endoscopic workup once clinically stable, scheduled as an outpatient for now. Thank you for the consult. Reese Augustin MD/ PhD cc:
== END 2019-02-05 17:00 | disposition home or self-care (01) ==
LOC: H.ER 14:38 → H.ERHOLD 18:26 → H.TEL 20:17
DX: D50.9 Iron deficiency anemia, unspecified (principal); I50.33 Acute on chronic diastolic (congestive) heart failure; E11.9 Type 2 diabetes mellitus without complications; E78.00 Pure hypercholesterolemia, unspecified; I48.2 Chronic atrial fibrillation; E78.5 Hyperlipidemia, unspecified; G89.29 Other chronic pain; I11.0 Hypertensive heart disease with heart failure; I70.0 Atherosclerosis of aorta; J44.9 Chronic obstructive pulmonary disease, unspecified; K92.2 Gastrointestinal hemorrhage, unspecified; M06.9 Rheumatoid arthritis, unspecified; M17.0 Bilateral primary osteoarthritis of knee; M47.816 Spondylosis without myelopathy or radiculopathy, lumbar region; Z79.01 Long term (current) use of anticoagulants; Z79.84 Long term (current) use of oral hypoglycemic drugs; Z86.73 Personal history of transient ischemic attack (TIA), and cerebral infarction without residual deficits; Z87.891 Personal history of nicotine dependence; Z95.0 Presence of cardiac pacemaker; Z98.84 Bariatric surgery status; E66.3 Overweight; F32.9 Major depressive disorder, single episode, unspecified; F41.9 Anxiety disorder, unspecified; M19.90 Unspecified osteoarthritis, unspecified site; R00.1 Bradycardia, unspecified; Z79.899 Other long term (current) drug therapy
CPT/HCPCS: 36415; 36430; 71046; 80048; 80053; 82728; 82948; 83036; 83540; 83550; 83880; 84484; 85025; 85610; 85730; 86850; 86900; 86920; 93005; 99285; G0328; G0378; J1756; J1940; P9051